=== PATIENT | female | born 1940 | race Caucasian/White ===

== ENCOUNTER 2019-01-21 15:24 | Observation (INO) ==
--- NOTE | 2019-01-21 15:44 | Emergency Department Note ---
ED Disposition Clinical Impression: Unstable angina, HLD (hyperlipidemia), PAD (peripheral artery disease), CAD (coronary artery disease), Chronic kidney disease, stage 2 (mild) Disposition: Admitted as Observation Condition on Discharge: Fair Referrals: Ted Trinidad [Primary Care Provider] - Time of Disposition: 17:13 - Critical Care Critical Care Time: No Attestation: On , the high probability of a clinically significant, sudden or life threatening deterioration of the following system(s) required my full and direct attention, intervention and personal management. The time I documented below is in addition to time spent performing reported procedures but includes the following listed in this critical care notation. Medical Decision Making - Medical Records Medical records reviewed: Yes: I reviewed the patient's medical records. - Randal Inquiry Pt receiving controlled substance: No Randal was queried for this patient: No Vital Signs: 01/21/19 15:28 01/21/19 15:57 01/21/19 16:58 Temperature 97.5 F L Temperature Source Oral Pulse Rate [Apical] 57 L Pulse Rate [Right Radial] 61 55 L Respiratory Rate 20 Blood Pressure [Right Arm] 160/76 H 132/63 128/55 L Blood Pressure Mean [Right Arm] 104 86 79 Blood Pressure Source [Right Arm] Automatic Cuff Automatic Cuff Automatic Cuff Blood Pressure Position [Right Arm] Sitting Sitting Supine 02 Sat by Pulse Oximetry 97 96 96 Oxygen Delivery Method Room Air Room Air Room Air 01/21/19 17:30 Temperature Temperature Source Pulse Rate [Apical] Pulse Rate [Right Radial] 55 L Respiratory Rate Blood Pressure [Right Arm] 136/55 L Blood Pressure Mean [Right Arm] 82 Blood Pressure Source [Right Arm] Automatic Cuff Blood Pressure Position [Right Arm] Supine 02 Sat by Pulse Oximetry 97 Oxygen Delivery Method Room Air - Lab Data Lab results reviewed: Yes: I reviewed the patient's lab results. Lab Results 01/21/19 15:45: WBC 5.6, RBC 4.22, Hgb 13.0, Hct 41.2, MCV 97.5, MCH 30.8, MCHC 31.6 L, RDW 13.5, Plt Count 286, MPV 7.9, Neut % (Auto) 54.0, Lymph % (Auto) 36.2, [place] % (Auto) 6.3, Eos % (Auto) 3.0, Baso % (Auto) 0.5, Neut # (Auto) 3.0, Lymph # (Auto) 2.0, [place] # (Auto) 0.4, Eos # (Auto) 0.2, Baso # (Auto) 0.0 01/21/19 15:45: Sodium 132 L, Potassium 4.1, Chloride 97 L, Carbon Dioxide 24, Anion Gap 15.1 H, BUN 19 H, Creatinine 1.17 H, Estimated Creat Clear 61, Estimated GFR 45 L, Est GFR ( Amer) 54 L, Glucose 107 H, Calcium 9.1, Troponin I < 0.02 Result diagrams: 01/21/19 15:45 01/21/19 15:45 Orders (Tests/Meds): ED MEDICATIONS Generic Name Dose Route Start Last Admin Trade Name Freq PRN Reason Stop Dose Admin Nitroglycerin 1 gm 01/21/19 21:00 01/21/19 18:04 Nitroglycerin 1 Inch Oint Udp TD 02/20/19 20:59 1 gm TID NITESH Administration Discontinued Medications Generic Name Dose Route Start Last Admin Trade Name Freq PRN Reason Stop Dose Admin Aspirin 324 mg 01/21/19 15:59 01/21/19 17:11 Aspirin 81mg Chewable Tablet PO 01/21/19 16:00 Not Given ONCE ONE Aspirin 325 mg 01/21/19 16:23 01/21/19 16:24 Aspirin Ec 325mg Tablet PO 01/21/19 16:24 325 mg ONCE ONE Administration - Physician Consults Physician Consulted: jeri Time: 17:13 Reason -: Admission, Pt condition - HUBER Score for Non-Stemi Age of Patient: 70-79 years old Heart Rate: 50-69 bpm Systolic Blood Pressure: 160-199 mmHg Serum Creatinine: 0.80-1.19 mg/dl CHF [place] Class: I-No CHF Other Risk Factors: None Non-Stemi Risk Score: 95 General Adult HPI - General Stated complaint: chest pain Time Seen by Provider: 01/21/19 15:33 Mode of Arrival: Ambulatory Source of Information: Patient Limitations: No Limitations - History of Present Illness HPI narrative: extensive heart disease history, carotid history. CABG 2000 and stents . Patient of Jeri. - Related Data Home Medications Medication Instructions Recorded Confirmed aspirin 81 mg tablet,delayed 81 mg PO QDAY 08/12/17 10/08/18 release clopidogrel 75 mg tablet 75 mg PO DAILY 10/08/18 10/08/18 Previous Rx's Medication Instructions Recorded carvedilol 12.5 mg tablet 12.5 mg PO BID 90 Days #180 tab 01/30/18 diltiazem CD 240 mg 240 mg PO QDAY #90 cap 05/14/18 capsule,extended release 24 hr atorvastatin 10 mg tablet 10 mg PO QDAY #90 tab 05/15/18 losartan 100 mg tablet 100 mg PO QDAY #90 tab 05/15/18 isosorbide mononitrate ER 60 mg 60 mg PO DAILY #90 tab 05/27/18 tablet,extended release 24 hr Allergies Allergy/AdvReac Type Severity Reaction Status Date / Time doxycycline Allergy Verified 10/08/18 11:53 nitrofurantoin Allergy Verified 10/08/18 11:53 [From Macrodantin] Penicillins Allergy Verified 10/08/18 11:53 Xudrgrq-Kgk-Zqq Reductase Allergy Verified 10/08/18 11:53 Inhibitor Sulfa (Sulfonamide Allergy Verified 10/08/18 11:53 Antibiotics) Seafood Allergy Uncoded 10/08/18 11:53 [facility] History - Hepatitis A Screen Attestation statement:: This patient has been screened for Hepatitis A risk factors. I have reviewed the patient's past medical history: Yes Medical History: Reports:: Anxiety, Coronary Artery Disease, Gastroesophageal Reflux Disease(GERD), Hyperlipidemia, Hypertension, Peripheral Artery Disease, Renal Disease Other Surgeries: Yes: Angioplasty, Hysterectomy-Total Comment: CABG x3 2000. Cholecystectomy. KERRY Ramus 02/2018 - Social History Smoking Status: Never smoker Alcohol Intake: never Substance Use Type: denies use Occupational Status: retired - Psychiatric History Pschychiatric History:: Reports:: Anxiety Family Hx:: Heart Attack, Coronary Artery Disease ROS Obtained: Yes All systems reviewed & no additional complaints - Constitutional Constitutional: Denies fever(s) - ENT Ears, Nose, Mouth, and Throat: Reports other (jaw pain) - Cardiovascular Cardiovascular: Reports chest pain, Reports chest pain at rest - Respiratory Respiratory: No chest congestion, No cough, No dyspnea - Gastrointestinal Gastrointestingal: Denies: abdominal pain - Musculoskeletal Musculoskeletal: Denies joint pain, Reports back pain, Denies joint stiffness, Denies joint swelling, Reports other (upper thoracic) - Integumentary/Breasts Skin/Breast: Denies skin pain, Denies wounds - Neurologic Neurologic: Denies syncope - Hematologic/Lymphatic Henatologic/Lymphatic: Denies easy bleeding Physical Exam - General General appearance: alert, in no apparent distress - Head Head exam: atraumatic, normocephalic, normal inspection - Eye Eye exam: Present: normal appearance - ENT ENT exam: Present: normal exam, normal oropharynx, mucous membranes moist, TM's normal bilaterally, normal external ear exam - Neck Neck exam: Present: full ROM, trachea midline. Absent: lymphadenopathy - Chest Chest inspection: Present: normal inspection, symmetric chest wall rise. Absent: tenderness - Respiratory Respiratory exam: Present: normal lung sounds bilaterally. Absent: respiratory distress - Cardiovascular Cardiovascular exam: Present: regular rate, normal rhythm. Absent: JVD - Abdominal Exam Abdominal exam: Present: soft, normal bowel sounds. Absent: distention, tenderness, guarding - Extremities Exam Extremities exam: Present: normal inspection, full ROM, normal capillary refill. Absent: calf tenderness - Back Exam Back exam: Present: full ROM, paraspinal tenderness - Neurological Exam Neurological exam: Present: alert, oriented X3 - Psychiatric Psychiatric exam: Present: normal affect, normal mood - Skin Skin exam: Present: warm, dry, intact, normal color
[2019-01-21 15:54] LABS: Basophils % 0.5 % (0.1-2.0); Eosinophils # 0.2 K/mm3 (0.0-0.4); Hematocrit 41.2 % (37.0-47.0); Lymphocytes % 36.2 % (10-50); Mean Corpuscular HGB Conc 31.6 g/dL (31.8-35.4); Mean Corpuscular Volume 97.5 fl (81-99); Mean Platelet Volume 7.9 fl (7.4-10.4); Monocytes # 0.4 K/mm3 (0.1-1.0); Monocytes % 6.3 % (1.7-9.3); Platelet Count 286 K/mm3 (142-424); Red Blood Count 4.22 M/mm3 (4.20-5.40); Red Cell Distribution Width 13.5 % (11.5-17.5); White Blood Count 5.6 K/mm3 (4.8-10.8)
[2019-01-21 16:10] LABS: Anion Gap 15.1 mEq/L (5-15); Blood Urea Nitrogen 19 mg/dL (7-18); Calcium 9.1 mg/dL (8.5-10.1); Carbon Dioxide 24 mmol/L (21.0-32.0); Chloride 97 mmol/L (98-107); Glucose 107 mg/dL (74-106); Sodium 132 mmol/L (136-145)
--- NOTE | 2019-01-21 23:27 | Progress Note ---
Internal Medicine - PN: Subj *Date: 01/21/19 *Time: 23:24 Interval history: I came by to see the patient. She is sleeping quietly. I did not disturb her. Chart is reviewed. Med list is reviewed. Vital signs are stable. She presented with complaints of nonexertional chest pain. Cardiac catheterization is planned in the morning by Dr. Mehta. She is a regular patient of Dr. Mehta and sees Dr.Timothy Trinidad in [facility]. Exam Vital signs and Labs for Last 24 Hours: Temp Pulse Resp BP Pulse Ox 97.5 F L 58 L 18 159/59 H 98 01/21/19 20:00 01/21/19 20:00 01/21/19 20:00 01/21/19 20:00 01/21/19 20:00 Laboratory Results - last 24 hr 01/21/19 15:45: WBC 5.6, RBC 4.22, Hgb 13.0, Hct 41.2, MCV 97.5, MCH 30.8, MCHC 31.6 L, RDW 13.5, Plt Count 286, MPV 7.9, Neut % (Auto) 54.0, Lymph % (Auto) 36.2, [place] % (Auto) 6.3, Eos % (Auto) 3.0, Baso % (Auto) 0.5, Neut # (Auto) 3.0, Lymph # (Auto) 2.0, [place] # (Auto) 0.4, Eos # (Auto) 0.2, Baso # (Auto) 0.0 01/21/19 15:45: Sodium 132 L, Potassium 4.1, Chloride 97 L, Carbon Dioxide 24, Anion Gap 15.1 H, BUN 19 H, Creatinine 1.17 H, Estimated Creat Clear 61, Estimated GFR 45 L, Est GFR ( Amer) 54 L, Glucose 107 H, Calcium 9.1, Troponin I < 0.02 01/21/19 21:30: Troponin I < 0.02 I & O for Last 24 hours: Intake & Output 01/19/19 01/20/19 01/21/19 01/22/19 11:59 11:59 11:59 11:59 Weight 208 lb 5 oz - Constitutional no acute distress - *Routine Respiratory Exam Absent: respiratory distress - *Routine Cardiovascular Exam Present: RRR Assessment and Plan (1) Unstable angina Current visit: Yes Status: Acute Category: Medical Code(s): I20.0 - Unstable angina (2) CAD (coronary artery disease) Current visit: Yes Status: Chronic Qualifiers: Category: Medical Code(s): I25.10 - Atherosclerotic heart disease of [place] coronary artery without angina pectoris (3) Chronic kidney disease, stage 2 (mild) Current visit: Yes Status: Chronic Category: Medical Code(s): N18.2 - Chronic kidney disease, stage 2 (mild) (4) PAD (peripheral artery disease) Current visit: Yes Status: Chronic Category: Medical Code(s): I73.9 - Peripheral vascular disease, unspecified - Assessment and plan all Dx Assessment and Plan for all problems:: Cardiac cath tomorrow.
--- NOTE | 2019-01-22 07:52 | Consult Report ---
History of Present Illness Consult date: 01/22/19 Requesting physician: Flory Mao Consult reason: chest pain Chief complaint: chest pain Additional Medical History:: 1. Coronary artery disease A. History of coronary bypass grafting, 2000 B. Multiple coronary artery stenting procedures since 2000, per patient approximately every 1-1/2 to 2 years over the last several years. The last one in February 2018 at [facility] with drug-eluting stents placed to the ramus artery. 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 Normal left ventricular ejection fraction with elevated left ventricular end- diastolic pressure noted. 2. Hypertension 3. Hyperlipidemia 4. Gastroesophageal reflux disease 5. Chronic kidney disease, stage II, Cr 1.17 and GFR 45 6. Anxiety 7. Peripheral artery disease 8. Carotid artery stenosis, 2018, bilateral 20 to 49% ICA stenosis, unchanged from 2017 History of present illness: 79-year-old white female with coronary artery disease and history of bypass surgery and multiple stents since then with the last one in February 2018 presented to hospital for admission due to recurrent exertional back and jaw pain over the last week. Symptoms are the same as what she had in February of last year at which time she had stenting to her ramus intermedius artery despite triple antianginal therapy. Patient was admitted with plans for left heart catheterization today. Troponins have returned normal overnight. EKG is sinus with no acute changes. Patient did have nitroglycerin paste applied with no recurrent jaw pain. Her left scapular pain persists. [facility] History Medical History: Reports:: Anxiety, Coronary Artery Disease, Gastroesophageal Reflux Disease(GERD), Hyperlipidemia, Hypertension, Peripheral Artery Disease, Renal Disease Denies:: Diabetes Mellitus Type 1, Diabetes Mellitus Type 2 *Have you ever received a pneumonia vaccine?: Yes *Have you received a flu vaccine this season?: Yes Other Surgeries: Yes: Angioplasty, Hysterectomy-Total, Other (open heart sx 2000) - *Social History Smoking Status: Never smoker Alcohol Intake: never Substance Use Type: denies use *Occupational Status:: retired *Travel in the last 8 weeks: None - Psychiatric History Pschychiatric History:: Reports:: Anxiety Family Hx:: Heart Attack, Coronary Artery Disease Meds Home Medications Medication Instructions Recorded Confirmed Type aspirin 81 mg tablet,delayed 81 mg PO QDAY 08/12/17 01/21/19 History release carvedilol 12.5 mg tablet 12.5 mg PO BID 90 Days #180 tab 01/30/18 01/21/19 Rx diltiazem CD 240 mg 240 mg PO QDAY #90 cap 05/14/18 01/21/19 Rx capsule,extended release 24 hr atorvastatin 10 mg tablet 10 mg PO QDAY #90 tab 05/15/18 01/21/19 Rx losartan 100 mg tablet 100 mg PO QDAY #90 tab 05/15/18 01/21/19 Rx isosorbide mononitrate ER 60 mg 60 mg PO DAILY #90 tab 05/27/18 01/21/19 Rx tablet,extended release 24 hr clopidogrel 75 mg tablet 75 mg PO DAILY 10/08/18 01/21/19 History Allergies Allergy/AdvReac Type Severity Reaction Status Date / Time doxycycline Allergy Verified 10/08/18 11:53 nitrofurantoin Allergy Verified 10/08/18 11:53 [From Macrodantin] Penicillins Allergy Verified 10/08/18 11:53 Kxovaxr-Rab-Bit Reductase Allergy Verified 10/08/18 11:53 Inhibitor Sulfa (Sulfonamide Allergy Verified 10/08/18 11:53 Antibiotics) Seafood Allergy Uncoded 10/08/18 11:53 Review of Systems - *Cardiovascular Reports chest pain - *Respiratory Denies cough, Denies shortness of breath - *Gastrointestinal Denies abdominal pain, Denies nausea, Denies vomiting - *Genitourinary Denies blood in urine - *Musculoskeletal Denies joint pain, Denies back pain - *Neurologic Denies fainting, Denies weakness Exam Vital signs and Labs for Last 24 Hours: Temp Pulse Resp BP Pulse Ox 97.4 F L 65 18 95/47 L 96 01/22/19 04:00 01/22/19 04:00 01/22/19 04:00 01/22/19 04:00 01/22/19 04:00 Laboratory Results - last 24 hr 01/21/19 15:45: WBC 5.6, RBC 4.22, Hgb 13.0, Hct 41.2, MCV 97.5, MCH 30.8, MCHC 31.6 L, RDW 13.5, Plt Count 286, MPV 7.9, Neut % (Auto) 54.0, Lymph % (Auto) 36.2, [place] % (Auto) 6.3, Eos % (Auto) 3.0, Baso % (Auto) 0.5, Neut # (Auto) 3.0, Lymph # (Auto) 2.0, [place] # (Auto) 0.4, Eos # (Auto) 0.2, Baso # (Auto) 0.0 01/21/19 15:45: Sodium 132 L, Potassium 4.1, Chloride 97 L, Carbon Dioxide 24, Anion Gap 15.1 H, BUN 19 H, Creatinine 1.17 H, Estimated Creat Clear 61, Estimated GFR 45 L, Est GFR ( Amer) 54 L, Glucose 107 H, Calcium 9.1, Troponin I < 0.02 01/21/19 21:30: Troponin I < 0.02 01/22/19 00:23: Troponin I < 0.02 I & O for Last 24 hours: Intake & Output 01/19/19 01/20/19 01/21/19 01/22/19 11:59 11:59 11:59 11:59 Intake Total 428 / 428 Balance 428 / 428 Weight 210 lb - *Routine HEENT Exam Head: Present: normocephalic Eye: Present: EOMI, PERRL ENT: Present: mucous membranes moist - *Routine Neck Exam Present: supple. Absent: JVD, carotid bruit - *Routine Respiratory Exam Present: CTA bilaterally. Absent: accessory muscle use, rales, rhonchi, wheezes - *Routine Cardiovascular Exam Present: RRR. Absent: murmur, gallop, rubs - *Routine Abdominal Exam Present: soft. Absent: tenderness, distended, guarding - *Routine Extremities Exam Absent: edema, calf tenderness - *Routine Neurological Exam Present: alert, oriented X3, moving all extremities Assessment and Plan (1) Unstable angina Current visit: Yes Status: Acute Category: Medical Code(s): I20.0 - Unstable angina (2) CAD (coronary artery disease) Current visit: Yes Status: Chronic Qualifiers: Category: Medical Code(s): I25.10 - Atherosclerotic heart disease of [place] coronary artery without angina pectoris (3) Chronic kidney disease, stage 2 (mild) Current visit: Yes Status: Chronic Category: Medical Code(s): N18.2 - Chronic kidney disease, stage 2 (mild) (4) PAD (peripheral artery disease) Current visit: Yes Status: Chronic Category: Medical Code(s): I73.9 - Peripheral vascular disease, unspecified - Assessment and plan all Dx Assessment and Plan for all problems:: 1. Unstable angina pectoris despite 3 antianginal medications. Plan to proceed with left heart catheterization today. Patient has a known chronically occluded CHEN. Home medications have been reviewed continued including aspirin and Plavix. 2. Further recommendations to follow pending above results.
--- NOTE | 2019-01-22 08:41 | History & Physical Report ---
*Admission Date: 01/21/19 *Chief complaint: chest and jaw pain *History of present illness: Ms. Barrera is a 79-year-old white female with coronary artery disease and history of bypass surgery and multiple stents since then with the last one in February 2018, who presented to hospital for admission due to recurrent exertional back and jaw pain over the last week. Symptoms are the same as what she had in February of last year at which time she had stenting to her ramus intermedius artery despite triple antianginal therapy. Patient was admitted with plans for left heart catheterization today. Troponins have returned normal overnight. EKG is sinus with no acute changes. Patient did have nitroglycerin paste applied with no recurrent jaw pain. Her left scapular pain persists. The above as per Viral Escoto. [facility] History I have reviewed the patient's past medical history: Yes Medical History: Reports:: Anxiety, Carotid Stenosis, Coronary Artery Disease, Gastroesophageal Reflux Disease(GERD), Hyperlipidemia, Hypertension, Peripheral Artery Disease, Renal Disease Denies:: Diabetes Mellitus Type 1, Diabetes Mellitus Type 2 *Have you ever received a pneumonia vaccine?: Yes *Have you received a flu vaccine this season?: Yes Other Surgeries: Yes: Angioplasty, CABG, Cardiac Catheterization, Coronary Stent, Hysterectomy-Total, Other (open heart sx 2000) - *Social History Smoking Status: Never smoker Alcohol Intake: never Substance Use Type: denies use *Occupational Status:: retired *Travel in the last 8 weeks: None - Psychiatric History Pschychiatric History:: Reports:: Anxiety Family Hx:: Heart Attack, Coronary Artery Disease Review of Systems - Constitutional Denies fever(s), Denies weakness - Eyes Denies blurry vision, Denies double vision - ENT Reports nasal congestion, Denies sore throat - *Cardiovascular Reports radiating jaw, neck or arm pain, Denies chest pain, Denies shortness of breath, Denies irregular heart rhythm - *Respiratory Reports cough, Denies shortness of breath - *Gastrointestinal Reports nausea, Denies abdominal pain, Denies loose stools, Denies vomiting - *Genitourinary Denies difficulty urinating, Denies painful urination - *Musculoskeletal Denies joint pain - *Neurologic Reports headache(s), Denies fainting, Denies dizziness, Denies weakness Meds Home Medications Medication Instructions Recorded Confirmed Type aspirin 81 mg tablet,delayed 81 mg PO QDAY 08/12/17 01/21/19 History release carvedilol 12.5 mg tablet 12.5 mg PO BID 90 Days #180 tab 01/30/18 01/21/19 Rx diltiazem CD 240 mg 240 mg PO QDAY #90 cap 05/14/18 01/21/19 Rx capsule,extended release 24 hr atorvastatin 10 mg tablet 10 mg PO QDAY #90 tab 05/15/18 01/21/19 Rx losartan 100 mg tablet 100 mg PO QDAY #90 tab 05/15/18 01/21/19 Rx isosorbide mononitrate ER 60 mg 60 mg PO DAILY #90 tab 05/27/18 01/21/19 Rx tablet,extended release 24 hr clopidogrel 75 mg tablet 75 mg PO DAILY 10/08/18 01/21/19 History Allergies Allergy/AdvReac Type Severity Reaction Status Date / Time doxycycline Allergy Verified 10/08/18 11:53 nitrofurantoin Allergy Verified 10/08/18 11:53 [From Macrodantin] Penicillins Allergy Verified 10/08/18 11:53 Cdkzirf-Pwh-Rhs Reductase Allergy Verified 10/08/18 11:53 Inhibitor Sulfa (Sulfonamide Allergy Verified 10/08/18 11:53 Antibiotics) Seafood Allergy Uncoded 10/08/18 11:53 Exam Vital signs and Labs for Last 24 Hours: Temp Pulse Resp BP Pulse Ox 97.9 F 56 L 18 132/80 98 01/22/19 08:00 01/22/19 08:00 01/22/19 08:00 01/22/19 08:00 01/22/19 08:00 Laboratory Results - last 24 hr 01/21/19 15:45: WBC 5.6, RBC 4.22, Hgb 13.0, Hct 41.2, MCV 97.5, MCH 30.8, MCHC 31.6 L, RDW 13.5, Plt Count 286, MPV 7.9, Neut % (Auto) 54.0, Lymph % (Auto) 36.2, [place] % (Auto) 6.3, Eos % (Auto) 3.0, Baso % (Auto) 0.5, Neut # (Auto) 3.0, Lymph # (Auto) 2.0, [place] # (Auto) 0.4, Eos # (Auto) 0.2, Baso # (Auto) 0.0 07/10/19 15:45: Sodium 132 L, Potassium 4.1, Chloride 97 L, Carbon Dioxide 24, Anion Gap 15.1 H, BUN 19 H, Creatinine 1.17 H, Estimated Creat Clear 61, Estimated GFR 45 L, Est GFR ( Amer) 54 L, Glucose 107 H, Calcium 9.1, Troponin I < 0.02 01/21/19 21:30: Troponin I < 0.02 01/22/19 00:23: Troponin I < 0.02 I & O for Last 24 hours: Intake & Output 01/19/19 01/20/19 01/21/19 01/22/19 11:59 11:59 11:59 11:59 Intake Total 428 / 428 Balance 428 / 428 Weight 210 lb - Constitutional no acute distress - *Routine HEENT Exam Head: Present: normocephalic Eye: Present: EOMI, PERRL ENT: Present: mucous membranes moist - *Routine Neck Exam Present: supple. Absent: lymphadenopathy - *Routine Respiratory Exam Present: CTA bilaterally - *Routine Cardiovascular Exam Present: RRR - *Routine Abdominal Exam Present: soft, normoactive bowel sounds. Absent: tenderness - *Routine Extremities Exam Absent: cyanosis, clubbing, edema - *Routine Skin Exam Present: warm. Absent: rash - *Routine Neurological Exam Present: alert, oriented X3 H&P: Result - Impressions CXR - nothing acute Assessment and Plan (1) Unstable angina Current visit: Yes Status: Acute Category: Medical Code(s): I20.0 - Unstable angina (2) CAD (coronary artery disease) Current visit: Yes Status: Chronic Qualifiers: Category: Medical Code(s): I25.10 - Atherosclerotic heart disease of [place] coronary artery without angina pectoris (3) Chronic kidney disease, stage 2 (mild) Current visit: Yes Status: Chronic Category: Medical Code(s): N18.2 - Chronic kidney disease, stage 2 (mild) (4) PAD (peripheral artery disease) Current visit: Yes Status: Chronic Category: Medical Code(s): I73.9 - Peripheral vascular disease, unspecified - Assessment and plan all Dx Assessment and Plan for all problems:: Patient to have a heart cath this am.
--- NOTE | 2019-01-22 08:45 | Pharmacy Consult Notes ---
[facility] Pharmacy VTE Monitoring - Patient Demographics Admission date: 01/22/19 Report Date: 01/22/19 Time: 08:45 Allergies/Adverse Reactions: Patient Allergies doxycycline Allergy (Verified 10/08/18 11:53) nitrofurantoin [From Macrodantin] Allergy (Verified 10/08/18 11:53) Penicillins Allergy (Verified 10/08/18 11:53) Afhngfk-Pcc-Dee Reductase Inhibitor Allergy (Verified 10/08/18 11:53) Sulfa (Sulfonamide Antibiotics) Allergy (Verified 10/08/18 11:53) Seafood Allergy (Uncoded 10/08/18 11:53) Height: 1.63 m Weight: 95.254 kg Patient Problems: Current Active Problems (Updated 01/21/19 @ 17:13 by Jayden Grace MD) Unstable angina (Acute) PAD (peripheral artery disease) (Chronic) HLD (hyperlipidemia) (Chronic) CAD (coronary artery disease) (Chronic) Chronic kidney disease, stage 2 (mild) (Chronic) - VTE Risk Labs: VTE Related Lab Results Hgb 13.0 g/dL (12.2-16.2) 01/21/19 15:45 Hct 41.2 % (37.0-47.0) 01/21/19 15:45 Plt Count 286 K/mm3 (142-424) 01/21/19 15:45 BUN 19 mg/dL (7-18) H 01/21/19 15:45 Creatinine 1.17 mg/dL (0.55-1.02) H 01/21/19 15:45 Estimated Creat Clear 61 mL/min (50-200) 01/21/19 15:45 Was VTE Risk Assessment Performed: Yes VTE Score: 1 VTE Risk Level: Moderate Risk Clinical Trial Participant: No - Prophylaxis VTE Prophylaxis Ordered?: Yes Types of VTE Prophylaxis: TEDS Knee High
--- NOTE | 2019-01-23 13:05 | Discharge Summary ---
General - General Admission date:: 01/21/19 Discharge date: 01/22/19 HPI HPI: Ms. Barrera is a 79-year-old white female with coronary artery disease and history of bypass surgery and multiple stents since then with the last one in February 2018, who presented to hospital for admission due to recurrent exertional back and jaw pain over the last week. Symptoms are the same as what she had in February of last year at which time she had stenting to her ramus intermedius artery despite triple antianginal therapy. Patient was admitted with plans for left heart catheterization today. Troponins have returned normal overnight. EKG is sinus with no acute changes. Patient did have nitroglycerin paste applied with no recurrent jaw pain. Her left scapular pain persists. The above as per Viral Escoto. Hospital Course Hospital Course: The patient was taken to the Embryology Professor and there was severe disease in the circumflex artery. She received 1 stent. Cardiology felt she was stable to be discharged home on dual antiplatelet therapy and cardiac rehabilitation. They did not want to make any changes to her home medication regimen and will follow up with her in a week in their office. Objective Vital signs: Temp Pulse Resp BP Pulse Ox 97.7 F 61 15 150/62 H 95 01/22/19 13:30 01/22/19 16:15 01/22/19 16:15 01/22/19 16:15 01/22/19 16:15 Narrative: - Constitutional no acute distress - *Routine HEENT Exam Head: Present: normocephalic Eye: Present: EOMI, PERRL ENT: Present: mucous membranes moist - *Routine Neck Exam Present: supple. Absent: lymphadenopathy - *Routine Respiratory Exam Present: CTA bilaterally - *Routine Cardiovascular Exam Present: RRR - *Routine Abdominal Exam Present: soft, normoactive bowel sounds. Absent: tenderness - *Routine Extremities Exam Absent: cyanosis, clubbing, edema - *Routine Skin Exam Present: warm. Absent: rash - *Routine Neurological Exam Present: alert, oriented X3 Results Labs on day of discharge: Labs from last 24 hours 01/22/19 12:45 Activated Clotting Time 319 H* DS: Diagnosis - Discharge Diagnosis (1) Unstable angina Status: Acute (2) CAD (coronary artery disease) Status: Chronic (3) Chronic kidney disease, stage 2 (mild) Status: Chronic (4) PAD (peripheral artery disease) Status: Chronic (5) Status post coronary artery stent placement Status: Acute Discharge Plan - Patient Discharge Instructions ACTIVITY: Limited activity DIET: cardiac Patient Instructions: Cardiac Catheterization, DI for Angina, DI for Cardiac Catheterization, DI for Coronary Stenting, DI for Surgical Site Infection, Surgical Site Infection - Follow up Plan Follow up with: Santi Mehta MD [Staff Physician] - 1 week Disposition: Home, Self-Halfway Medications: Home Medications Medication Instructions Recorded Confirmed Type aspirin 81 mg tablet,delayed 81 mg PO QDAY 08/12/17 01/21/19 History release carvedilol 12.5 mg tablet 12.5 mg PO BID 90 Days #180 tab 01/30/18 01/21/19 Rx diltiazem CD 240 mg 240 mg PO QDAY #90 cap 05/14/18 01/21/19 Rx capsule,extended release 24 hr atorvastatin 10 mg tablet 10 mg PO QDAY #90 tab 05/15/18 01/21/19 Rx losartan 100 mg tablet 100 mg PO QDAY #90 tab 05/15/18 01/21/19 Rx isosorbide mononitrate ER 60 mg 60 mg PO DAILY #90 tab 05/27/18 01/21/19 Rx tablet,extended release 24 hr clopidogrel 75 mg tablet 75 mg PO DAILY 10/08/18 01/21/19 History Prescriptions/Medication Reconciliation: Continued diltiazem CD 240 mg capsule,extended release 24 hr 240 mg PO QDAY #90 cap aspirin 81 mg tablet,delayed release 81 mg PO QDAY carvedilol 12.5 mg tablet 12.5 mg PO BID 90 Days #180 tab atorvastatin 10 mg tablet 10 mg PO QDAY #90 tab losartan 100 mg tablet 100 mg PO QDAY #90 tab isosorbide mononitrate ER 60 mg tablet,extended release 24 hr 60 mg PO DAILY #90 tab clopidogrel 75 mg tablet 75 mg PO DAILY
== END 2019-01-22 17:00 | disposition home or self-care (01) ==
LOC: 2ND 15:24 → ER 15:24 → 2ND 18:44
PROVIDERS: ADMIT Family Medicine; ATTEND Family Medicine
DX: Z88.0 Allergy status to penicillin; Z79.82 Long term (current) use of aspirin; N18.2 Chronic kidney disease, stage 2 (mild); Z79.899 Other long term (current) drug therapy; Z95.5 Presence of coronary angioplasty implant and graft; I73.9 Peripheral vascular disease, unspecified; E78.5 Hyperlipidemia, unspecified; Z88.2 Allergy status to sulfonamides; Z88.8 Allergy status to other drugs, medicaments and biological substances; I25.110 Atherosclerotic heart disease of native coronary artery with unstable angina pectoris; I12.9 Hypertensive chronic kidney disease with stage 1 through stage 4 chronic kidney disease, or unspecified chronic kidney disease; Z95.1 Presence of aortocoronary bypass graft; Z91.013 Allergy to seafood; Z88.1 Allergy status to other antibiotic agents
CPT/HCPCS: 36415; 71020; 71046; 80048; 84484; 85025; 85347; 92943; 93005; 93458; 99152; 99284; C1725; C1760; C1769; C1876; C1894; C9607; G0378; J1644; J2405; Q9967

== ENCOUNTER → 2019-12-09 11:13 | Outpatient (CLI) | payer MEDICARE, OTHER, SELFPAY ==
[2019-12-09 18:05] LABS: Amphetamine/Metha Screen,Urine Negative ng/ml (<1000)
[2019-12-09 18:06] LABS: Barbiturates Screen,Urine Negative ng/ml (<200)
[2019-12-09 18:07] LABS: Cannabinoid Screen,Urine Negative ng/ml (<50)
[2019-12-09 18:08] LABS: Cocaine Screen,Urine Negative ng/ml (<300)
[2019-12-09 18:09] LABS: Methadone Screen,Urine Negative ng/ml (<300)
[2019-12-09 18:11] LABS: Opiate Screen,Urine Negative ng/ml (<300); Phencyclidine Screen,Urine Negative ng/ml (<25)
[2019-12-09 18:25] LABS: Benzodiazepines Screen,Urine Positive ng/ml (<200)
== END ==
PROVIDERS: Visit Provider Internal Medicine
DX: E78.5 Hyperlipidemia, unspecified (principal); F41.9 Anxiety disorder, unspecified; I11.9 Hypertensive heart disease without heart failure; I25.10 Atherosclerotic heart disease of native coronary artery without angina pectoris; Z79.899 Other long term (current) drug therapy; Z95.5 Presence of coronary angioplasty implant and graft
CPT/HCPCS: 80305

== ENCOUNTER → 2020-06-29 08:44 | Outpatient (CLI) | payer MEDICARE, OTHER, SELFPAY ==
--- NOTE | 2020-06-29 08:46 | CA_ITS ---
APPROVED REPORT Thaw Shed Heater Tender: Estrella Leonardo RVT Laterality: Bilateral Study Quality: Good Indications: bob Risk Factors Hypertension: Hyperlipidemia Doppler Spectral Velocity Analysis ECA (R) 162.10/39.00 cm/s ECA (L) 154.60/9.70 cm/s dICA (R) 133.20/20.50 cm/s dICA (L) 64.30/21.00 cm/s Karri (R) 165.70/30.70 cm/s Karri (L) 87.00/27.00 cm/s pICA (R) 136.60/27.00 cm/s pICA (L) 150.40/25.10 cm/s dCCA (R) 42.80/13.90 cm/s dCCA (L) 83.30/12.80 cm/s pCCA (R) 48.90/12.30 cm/s pCCA (L) 101.70/19.50 cm/s Vert (R) 65.50/16.70 cm/s Vert (L) 30.80/4.30 cm/s ICA/CCA 3.87 ICA/CCA 1.81 Findings Study suggests 50-69% stenosis of the right internal cartoid artery worsened from the 01/08/17 study. Study suggests 20-49% stenosis of the left internal cartoid artery unchanged from the 01/08/17 study. Antegrade flow seen bilateral vertebral arteries. Conclusion Study suggests 50-69% stenosis, upper end of scale, of the right internal cartoid artery worsened from the 01/08/17 study. Study suggests 20-49% stenosis of the left internal cartoid artery unchanged from the 01/08/17 study. Antegrade flow seen bilateral vertebral arteries. Electronically signed by : Eric Valadez MD 06/29/2020 16:20:01
== END ==
PROVIDERS: PCP Nurse Practitioner Family; Visit Provider Internal Medicine
DX: E78.5 Hyperlipidemia, unspecified (principal); I11.9 Hypertensive heart disease without heart failure; I25.10 Atherosclerotic heart disease of native coronary artery without angina pectoris; I65.23 Occlusion and stenosis of bilateral carotid arteries; Z95.5 Presence of coronary angioplasty implant and graft
CPT/HCPCS: 93880

== ENCOUNTER 2020-08-11 14:55 | Observation (INO) | payer MEDICARE, SELFPAY ==
[2020-08-11] VITALS (11 sets, daily range): BP systolic 128–192; BP diastolic 61–95; PULSE 55–74; RESP 16–18; TEMP 36.4–36.6; O2SAT 97–98; BMI 36.3; BMI 36.2
--- NOTE | 2020-08-11 14:56 | ECG_ITS ---
APPROVED REPORT Exam: Resting ECG HR:69 bpm ECG Measurements Heart Rate 69 AXES GA 176 P 29 QRSd 92 QRS 65 QT 420 T 63 QTc 450 Conclusion Normal sinus rhythm Normal ECG Electronically signed by : King Lange, 08/12/2020 18:47:43
--- NOTE | 2020-08-11 14:58 | XR_ITS ---
PROCEDURE: XR CHEST PORTABLE CLINICAL HISTORY: CHEST PAIN COMPARISON: CR Chest from 01/21/2019 FINDINGS: Prior CABG. Normal heart size. The lungs are clear without infiltrates, suspicious nodules, or pleural effusions. There are degenerative changes in the right shoulder. Suspect old right humeral neck fracture. IMPRESSION: No acute findings. Dictated by: Eric Valadez MD 08/11/2020 16:14 rEic Valadez MD in [place] 08/11/2020 16:14
[2020-08-11 15:09] LABS: Basophils % 0.6 % (0.1-2.0); Eosinophils # 0.2 K/mm3 (0.0-0.4); Eosinophils % 3.4 % (0.1-12.0); Hematocrit 42.4 % (37.0-47.0); Hemoglobin 14.3 g/dL (12.2-16.2); Lymphocytes # 2.5 K/mm3 (0.7-4.5); Lymphocytes % 40.2 % (10-50); Mean Corpuscular HGB Conc 33.6 g/dL (31.8-35.4); Mean Corpuscular Volume 95.1 fl (81-99); Mean Platelet Volume 7.2 fl (7.4-10.4); Monocytes # 0.3 K/mm3 (0.1-1.0); Monocytes % 5.2 % (1.7-9.3); Neutrophils # 3.1 K/mm3 (1.8-7.8); Neutrophils % 50.4 % (37.0-80.0); Platelet Count 283 K/mm3 (142-424); Red Blood Count 4.46 M/mm3 (4.20-5.40); Red Cell Distribution Width 13.6 % (11.5-17.5); White Blood Count 6.2 K/mm3 (4.8-10.8)
--- NOTE | 2020-08-11 15:10 | HMH.EDGENADL ---
ED Disposition Clinical Impression: Unstable angina Disposition: Admitted as Observation Condition on Discharge: Fair Referrals: Celena Villar APRN [Primary Care Provider] - - Critical Care Critical Care Time: No Attestation: On , the high probability of a clinically significant, sudden or life threatening deterioration of the following system(s) required my full and direct attention, intervention and personal management. The time I documented below is in addition to time spent performing reported procedures but includes the following listed in this critical care notation. Medical Decision Making - Randal Inquiry Pt receiving controlled substance: No Vital Signs: 08/11/20 15:28 08/11/20 15:35 Pulse Rate [Radial] 74 74 Blood Pressure [Right Arm] 128/73 131/65 Blood Pressure Mean [Right Arm] 91 87 Blood Pressure Position [Right Arm] Sitting Sitting 02 Sat by Pulse Oximetry 98 - Lab Data Lab results reviewed: Yes: I reviewed the patient's lab results. Lab Results 08/11/20 15:00: WBC 6.2, RBC 4.46, Hgb 14.3, Hct 42.4, MCV 95.1, MCH 32.0 H, MCHC 33.6, RDW 13.6, Plt Count 283, MPV 7.2 L, Neut % (Auto) 50.4, Lymph % (Auto) 40.2, [place] % (Auto) 5.2, Eos % (Auto) 3.4, Baso % (Auto) 0.6, Neut # (Auto) 3.1, Lymph # (Auto) 2.5, [place] # (Auto) 0.3, Eos # (Auto) 0.2, Baso # (Auto) 0.0 08/11/20 15:00: Sodium 136, Potassium 4.3, Chloride 102, Carbon Dioxide 25, Anion Gap 13.3, BUN 13, Creatinine 1.00, Estimated Creat Clear 70, Estimated GFR 54 L, Est GFR ( Amer) 65, Glucose 112 H, Calcium 9.7, Total Bilirubin 0.5, Direct Bilirubin 0.3, Conjugated Bilirubin 0.0, Indirect Bilirubin 0.2, Unconjugated Bilirubin 0.2, AST 27, ALT 18, Alkaline Phosphatase 59, Troponin I < 0.01, Total Protein 7.9, Albumin 4.9 Result diagrams: 08/11/20 15:00 08/11/20 15:00 Orders (Tests/Meds): ED MEDICATIONS Discontinued Medications Generic Name Dose Route Start Last Admin Trade Name Madiha PRN Reason Stop Dose Admin Aspirin 324 mg 08/11/20 15:32 08/11/20 15:28 Aspirin 81mg Chewable Tablet PO 08/11/20 15:33 324 mg ONCE ONE Administration Nitroglycerin 0.4 mg 08/11/20 15:32 08/11/20 15:30 Nitroglycerin 0.4mg Sl Tablet SL 08/11/20 15:33 0.4 mg ONCE ONE Administration ORDERS Category Date Time Status Covid-19 IgG/IgM ([facility]) Stat Lab 08/11/20 15:00 Received Troponin I Q3H Lab 08/11/20 18:00 Ordered Troponin I Q3H Lab 08/11/20 21:00 Ordered - Radiology Data #1 Image(s): Chest Image Reviewed: Yes I have reviewed radiologist's interpretation PROCEDURE: XR CHEST PORTABLE CLINICAL HISTORY: CHEST PAIN COMPARISON: CR Chest from 01/21/2019 FINDINGS: Prior CABG. Normal heart size. The lungs are clear without infiltrates, suspicious nodules, or pleural effusions. There are degenerative changes in the right shoulder. Suspect old right humeral neck fracture. IMPRESSION: No acute findings. Dictated by: Eric Valadez MD 08/11/2020 16:14 Eric Valadez MD in [place] 08/11/2020 16:14 - ECG Data Tracing #1 EKG interpreted by Garfield Garces MD: Rhythm: sinus Rate: 69 [place]: normal Ectopy: none Conduction: normal ST Segment Changes: none T Wave Changes: none Q Waves: none No evidence of acute ischemia or injury Normal electrocardiogram - Physician Consults Physician Consulted: Janine Time: 17:00 Reason -: Cardiology Eval/Care Comment/Response: Admit for cardiac cath tomorrow Additional Consult: Dr. Ceballos Time: 17:00 Reason -: Admission Comment/Response: Agrees to admit the patient to the hospital. We discussed the patient's clinical information, including history, exam, laboratory and radiology results and ED course. Per hospital procedure, I will write temporary bridge inpatient orders on the patient. Specific orders requested by the admitting physician: Per cardiology - HUBER Score for Non-Stemi Age of Patient: 70-79 years old Heart Rate: 70-89
[2020-08-11 15:20] LABS: Chloride 102 mmol/L (98-107)
[2020-08-11 15:21] LABS: Potassium 4.3 mmoL/L (3.5-5.1); Sodium 136 mmol/L (136-145)
[2020-08-11 15:23] LABS: Alanine Aminotransferase 18 U/L (12-78); Alkaline Phosphatase 59 U/L (38-126); Anion Gap 13.3 mEq/L (5-15); Aspartate Amino Transferase 27 U/L (14-36); Bilirubin,Direct 0.3 mg/dl (0.0-0.4); Bilirubin,Indirect 0.2 mg/dL (0.0-0.9); Bilirubin,Total 0.5 mg/dl (0.2-1.3); Bilirubin,Unconjugated 0.2 mg/dL (0.0-1.1); Blood Urea Nitrogen 13 mg/dl (7-17); Carbon Dioxide 25 mmol/L (22.0-30.0); Creatinine Clearance Estimated 70 mL/min (50-200); Estimated Glomerular Filt Rate 54 ml/min (>60); GFR (African American) 65 ML/MIN (>60)
[2020-08-11 15:24] LABS: Albumin Level 4.9 g/dl (3.5-5.0); Calcium 9.7 mg/dl (8.4-10.2); Glucose 112 mg/dl (74-100); Total Protein,Serum 7.9 g/dl (6.3-8.2)
[2020-08-11 15:36] LABS: Troponin I < 0.01 ng/ml (0.00-0.034)
--- NOTE | 2020-08-11 16:00 | PC.NURSE ---
PT UPDATED ON PLAN OF CARE
--- NOTE | 2020-08-11 17:10 | PC.NURSE ---
PT UPDATED ON PLAN OF CARE
[2020-08-11 17:19] LABS: Coronavirus 19 IgG Antibody Positive (Negative); Coronavirus 19 IgM Antibody Negative (Negative)
--- NOTE | 2020-08-11 17:48 | PC.NURSE ---
CALLED FLOOR TO GIVE REPORT
--- NOTE | 2020-08-11 18:31 | PC.NURSE ---
REPORT CALLED TO OLIVER GOODMAN RN
--- NOTE | 2020-08-11 18:45 | PC.NURSE ---
PT TRANSFERRED TO FLOOR PER WHEELCHAIR
--- NOTE | 2020-08-11 18:57 | PC.NURSE ---
Pt arrived to the floor at this time.
[2020-08-11 19:05] LABS: Troponin I < 0.01 ng/ml (0.00-0.034)
--- NOTE | 2020-08-11 21:08 | [facility].HP ---
*Admission Date: 08/11/20 *Chief complaint: chest pain *History of present illness: Complains of chest pain. States that she has been having chest pains off and on for 2 weeks. Pain starts around her left shoulder blade and goes around to the front of her chest, radiates to the jaw. No exacerbating factors. Alleviated by nitroglycerin. Associated with shortness of breath, but not diaphoresis or nausea. She says the pain was worse today, off and on all day and severe this evening. She called Dr. Mehta who advised her to come to the emergency department. Currently she is pain-free after receiving aspirin prior to my evaluation. She has a long cardiac history. Cardiac bypass surgery 20 years ago. She has had multiple stents since then. She says her last stent and heart cath was a year and a half ago. She says the pain that she has been experiencing for the past 2 weeks is her typical cardiac ischemic pain. She is well known to Dr Mehta. CABG 2001 Dr Solis at [facility]. Numerous stents deployed subsequently. Received asa/ntg/ntp w/relief. No chest pain at the present. Troponins were negative. [facility] History Medical History: Reports:: Anxiety, Carotid Stenosis, Coronary Artery Disease, Gastroesophageal Reflux Disease(GERD), Hyperlipidemia, Hypertension, Peripheral Artery Disease, Renal Disease Denies:: Cancer, Diabetes Mellitus Type 1, Diabetes Mellitus Type 2, MRSA *Have you ever received a pneumonia vaccine?: Yes *Have you received a flu vaccine this season?: Yes Other Medical History: Reports: Arthritis Other Surgeries: Yes: Angioplasty, Appendectomy, CABG, Cardiac Catheterization, Cholecystectomy, Colonoscopy, Coronary Stent, EGD, Hysterectomy-Total, Other Amputation: No Fractures: No - *Social History Last grade of school completed: High school graduate Smoking Status: Never smoker Alcohol Intake: never Substance Use Type: denies use *Occupational Status:: employed Housing: house *Travel in the last 8 weeks: None - Psychiatric History Pschychiatric History:: Reports:: Anxiety Family Hx:: Heart Attack, Hyperlipidemia, Hypertension Review of Systems - Constitutional Reports fatigue - Eyes Denies change in vision - ENT Denies change in voice - *Cardiovascular Reports chest pain, Reports chest pain at rest, Reports shortness of breath with activity - *Respiratory Denies chest congestion - *Gastrointestinal Denies abdominal pain - *Genitourinary Denies difficulty urinating - *Musculoskeletal Denies abnormal walking - Integumentary/Breasts Denies yellowing of the skin, Denies new lesions - *Neurologic Denies other visual disturbances - Psychiatric Denies behavioral changes - Endocrine Denies cold intolerance - Hematologic/Lymphatic Denies easy bleeding - Allergic/Immunologic Denies hives Meds Home Medications Medication Instructions Recorded Confirmed Type aspirin 81 mg tablet,delayed 81 mg PO QDAY 08/12/17 08/11/20 History release chlordiazepoxide HCl 5 mg capsule 5 mg PO Q8H PRN #90 cap 01/30/19 08/11/20 Rx clopidogrel 75 mg tablet 75 mg PO DAILY #90 tab 12/09/19 08/11/20 Rx Doxazosin Mesylate [Cardura 2mg 2 mg PO BID 08/11/20 08/11/20 History Tab] Isosorbide Mononitrate [Imdur 60mg 60 mg PO DAILY 08/11/20 08/11/20 History ER tablet] carvediloL [Carvedilol 12.5mg Tab] 12.5 mg PO BID 08/11/20 08/11/20 History dilTIAZem HCl [Diltiazem 240mg 240 mg PO QDAY 08/11/20 08/11/20 History 24Hr ER Cap] Allergies Allergy/AdvReac Type Severity Reaction Status Date / Time doxycycline Allergy Verified 06/29/20 11:15 nitrofurantoin Allergy Verified 06/29/20 11:15 [From Macrodantin] Penicillins Allergy Verified 06/29/20 11:15 Eqgiplo-Jwd-Czy Reductase Allergy Verified 06/29/20 11:15 Inhibitor Sulfa (Sulfonamide Allergy Verified 06/29/20 11:15 Antibiotics) Seafood Allergy Uncoded 06/29/20 11:15 Exam Vital signs and Labs for Last 24 Hours:
[2020-08-11 21:43] LABS: Troponin I < 0.01 ng/ml (0.00-0.034)
[2020-08-12] VITALS (23 sets, daily range): BP systolic 95–166; BP diastolic 55–90; PULSE 50–95; RESP 16–18; TEMP 36.3–36.9; O2SAT 94–99; BMI 35.6
--- NOTE | 2020-08-12 | IR_ITS ---
APPROVED REPORT Patient Location: Inpatient Shirt Maker: KEZIA Lopez RT (R) PROCEDURES Left heart catheterization Left ventriculogram Selective coronary angiogram Drug-eluting stent deployment to the proximal LAD Drug-eluting stent deployment to the proximal circumflex artery Drug-eluting stent deployment to the left main artery INDICATION Coronary disease, Unstable angina, History of coronary bypass surgery with historical loss of bypass conduits Informed consent was obtained prior to the procedure. COMPLICATIONS none Estimated Blood Loss: less than 10 mls TECHNIQUE One percent lidocaine used to anesthetize the right anterior aspect of the wrist. The right radial artery was accessed via the Seldinger technique. A 6 Albanian sheath was placed in the right radial artery. 2.5 mg of verapamil, 800 mcg of nitroglycerin, 1mg Lidocaine and 5000 U Heparin were given through the arterial sheath. The trap catheter was also used to perform left heart catheterization, left ventriculogram and selective coronary angiogram. At the end the diagnostic angiogram a long hydrophilic sheath was advanced into the radial artery ending in the distal brachial artery. A JL 3 6 Albanian guide catheter was placed in the left main artery. Wires were placed in both the LAD and circumflex artery. Primary stenting could not be performed therefore a 2.5 mm balloon was used to predilate the ostial LAD. Following this a 3 mm x 18 mm resolute Bhaskar stent was deployed at 24 ion reducing the severe stenosis to 0%. A wire was then placed into the circumflex artery and predilatation was made. Following this a 3 mm x 15 mm resolute [place] stent was then deployed in the left main artery extending into the circumflex artery deployed at 24 ion. A wire was placed back into the LAD where a 3.5 mm balloon was then deployed at 24 ion to post dilate the LAD. After achieving excellent angiographic results the apparatus was removed the sheath was removed good hemostasis was achieved using TR banding patient transferred to the postop holding area in stable condition. ANGIOGRAPHIC RESULTS The left main artery Normal The left anterior descending artery Has an ostial eccentric 70% stenosis followed by proximal stents which are widely patent. The mid LAD then has stents which are 40 to 50% stenosis with smooth concentric in-stent restenosis. Large first diagonal artery has a stent which branches off the proximal left anterior descending artery which is also widely patent with minimal in-stent restenosis The circumflex artery Is a nondominant vessel and has an ostial 70% stenosis following stenting of the LAD. The stent in the proximal to mid segment has 40 to 50% concentric in-stent restenosis. The right coronary artery Dominant ostially occluded and fills via [id number] collaterals The KLEIN ventriculogram reveals Normal 60% The left ventricular end-diastolic pressure 10 mmHg IMPRESSION Severe disease as described above Successful stenting of the left main artery with successful stenting of both the LAD and circumflex artery as described above Normal ejection fraction Normal left ventricular end-diastolic pressure PLAN 1. Dual antiplatelet therapy 2. LDL less than 55 3. Cardiac rehabilitation 4. Avoidance of tobacco products 5. Risk factor modification Electronically signed by : Santi Mehta, 08/15/2020 16:25:50
--- NOTE | 2020-08-12 03:25 | PC.NURSE ---
PT HAS DONE WELL SINCE ARRIVAL TO FLOOR. NO C/O CHEST PAIN. PT HAS BEEN NSR ON TELE. VSS. WILL CONT. TO MONITOR.
--- NOTE | 2020-08-12 07:48 | CA_ITS ---
APPROVED REPORT EXAM: Comprehensive 2D, Doppler, and color-flow Echocardiogram Ski Edge Painter: Estrella Leonardo RVT Ht: 5 ft 4 in Wt: 208lbs BSA: 1.99 BP: 192/95 mmHg Indications: ANGINA,CAD,STENT,SOA,CP,CABG TDS 2D Dimensions LVOT 1.57 cm (M/F) 1.5-2.5 M-Mode Dimensions RVDd 1.50 cm (0.9-2.6) LA Diam 3.76 cm (1.9-4.0) LVDd 5.33 cm (3.5-5.7) Ao Diam 2.63 cm (2.0-3.7) LVDs 3.43 cm (3.5-5.7) IVSd 0.32 cm (0.6-1.1) PWd 0.75 cm (0.6-1.1) EF (Teich) 64.60% FS 35.60% EDV (Teich) 137.10 mL ESV (Teich) 48.50 mL LV Diastology E Decel Time 227.00 (160-240 msec) E/A Ratio 0.6 MED E' 6.80 (< 7 cm/sec) E'/MED E' Ratio 10.28 (>14) LAT E' 6.70 (<10 cm/sec) E/LAT E' Ratio 10.43 (>14) Mitral Valve MV E Max Atul. 70.00 (40-130 cm/s) MV A Velocity 117.00 (40-130 cm/s) E/A Ratio 0.60 MV Decel. Time 227.00 (160-240 ms) MV PHT 66.00 ms Pulmonary Valve PV Peak Velocity 107.00 (50-150 cm/s) Tricuspid Valve TR P. Velocity 239.00 cm/s RAP Estimate 10.00 mmHg RVSP 32.90 mmHg Left Ventricle Left atrium is mildly enlarged, left ventricle is normal size, mild concentric left ventricular hypertrophy, visually estimated ejection fraction 55% with no regional wall motion abnormality, grade 1 diastolic dysfunction seen without tissue Doppler evidence of raise left atrial pressure. Right Ventricle Right atrium and right ventricle are normal size and contractility. Aortic Valve Aortic valve is minimally thickened and fibrosed, there is no aortic stenosis or aortic insufficiency. Mitral Valve Mitral valve is grossly normal, there is mild mitral regurgitation. Tricuspid Valve Tricuspid valve grossly normal, there is mild tricuspid regurgitation, tricuspid regurgitation jet velocity is inadequate for calculation of the right ventricular systolic pressure. Pulmonic Valve Pulmonic valve is poorly visualized. Great Vessels Aortic root is normal size. Pericardium No significant pericardial effusion noted. Conclusion 1. Mildly enlarged left atrium, normal left ventricular size, mild concentric left ventricular hypertrophy, visually estimated ejection fraction 55% with no regional wall motion abnormality. Grade 1 diastolic dysfunction seen without tissue Doppler evidence of raise left atrial pressure. 2. Mild mitral and tricuspid regurgitation. 3. No significant pericardial effusion noted. Electronically signed by : Holden Yarbrough, 08/12/2020 16:12:44
--- NOTE | 2020-08-12 09:17 | P.CONPHA_ITS ---
[facility] Pharmacy VTE Monitoring - Patient Demographics Admission date: 08/12/20 Report Date: 08/12/20 Time: 09:17 Allergies/Adverse Reactions: Patient Allergies doxycycline Allergy (Verified 06/29/20 11:15) nitrofurantoin [From Macrodantin] Allergy (Verified 06/29/20 11:15) Penicillins Allergy (Verified 06/29/20 11:15) Twebtxh-Fkg-Pxa Reductase Inhibitor Allergy (Verified 06/29/20 11:15) Sulfa (Sulfonamide Antibiotics) Allergy (Verified 06/29/20 11:15) Seafood Allergy (Uncoded 06/29/20 11:15) Height: 1.63 m Weight: 94.517 kg Patient Problems: Current Active Problems Unstable angina (Acute) Status post coronary artery stent placement (Chronic) HLD (hyperlipidemia) (Chronic) CAD (coronary artery disease) (Chronic) - VTE Risk Labs: VTE Related Lab Results Hgb 14.3 g/dL (12.2-16.2) 08/11/20 15:00 Hct 42.4 % (37.0-47.0) 08/11/20 15:00 Plt Count 283 K/mm3 (142-424) 08/11/20 15:00 BUN 13 mg/dl (7-17) 08/11/20 15:00 Creatinine 1.00 mg/dl (0.52-1.04) 08/11/20 15:00 Estimated Creat Clear 70 mL/min (50-200) 08/11/20 15:00 Was VTE Risk Assessment Performed: Yes VTE Score: 1 VTE Risk Level: Low Risk Clinical Trial Participant: No - Prophylaxis VTE Prophylaxis Ordered?: Yes Types of VTE Prophylaxis: TEDS Knee High
--- NOTE | 2020-08-12 09:19 | HMH.PHAINT ---
completed home medication list using list from home pharmacy
--- NOTE | 2020-08-12 09:41 | HMH.CNCARD ---
History of Present Illness Consult date: 08/12/20 Requesting physician: Rajesh Ceballos Consult reason: chest pain Chief complaint: chest pain Additional Medical History:: 1. Unstable Angina (08/12/20) a. Troponins negative. b. Chest pain started 3 weeks ago and become increasingly worse. 2. Dyspnea (08/12/20) 3. Coronary artery disease a. KERRY (2019) b. Patient is on Plavix and aspirin. 4. Hypertensive heart disease. 5. Carotid artery stenosis History of present illness: 80-year-old female admitted to [facility] with unstable angina. Patient stated for the past 3 to 4 weeks that she has been having midsternal chest discomfort radiating down the left arm. Patient stated she had been taking her isosorbide as directed but the pain was becoming worse. Patient stated last evening her chest pain was a 10 out of 10 on the pain scale. On arrival to the emergency room she was giving a nitroglycerin tablet. Patient stated this did resolve her pain. Patient complained of being increased shortness of breath for the past few days. No swelling noted. Patient does have history of coronary artery disease. She is a patient of the cardiac clinic here at [facility]. Last catheterization was performed in January 2019 in which stent was placed. Patient is on Plavix and aspirin daily. Patient denies dizziness or palpitations. Upon this assessment patient is resting quietly. Denies chest pain, tightness or pressure. Patient does have history of CIS. Last CNI revealed 50 to 69% of the KIRTI and 20 to 49% on the LICA. Initial work-up was performed in the ED. EKG revealed sinus rhythm with a heart rate of 69 bpm. Troponin enzymes are negative. Lab unremarkable. Chest x-ray noted with no acute finding. Care with Dr. Mehta. Discussed with patient to undergo left heart catheterization today due to unstable angina. Discussed risk and benefits of left heart catheterization to patient. Patient verbalized understanding. Patient is agreeable to procedure. Preliminary echocardiogram reveals EF 55% with mild TR. No abnormal wall motion abnormality noted. Pending on the results of the left heart catheterization, recommendations for medication or therapy changes may be considered. Thank you for letting cardiology participate in the care of this patient. [facility] History I have reviewed the patient's past medical history: Yes Medical History: Reports:: Anxiety, Carotid Stenosis, Coronary Artery Disease, Gastroesophageal Reflux Disease(GERD), Hyperlipidemia, Hypertension, Peripheral Artery Disease, Renal Disease Denies:: Cancer, Diabetes Mellitus Type 1, Diabetes Mellitus Type 2, MRSA *Have you ever received a pneumonia vaccine?: Yes *Have you received a flu vaccine this season?: Yes Other Medical History: Reports: Arthritis Other Surgeries: Yes: Angioplasty, Appendectomy, CABG, Cardiac Catheterization, Cholecystectomy, Colonoscopy, Coronary Stent, EGD, Hysterectomy-Total, Other Amputation: No Fractures: No - *Social History Last grade of school completed: High school graduate Smoking Status: Never smoker Alcohol Intake: never Substance Use Type: denies use *Occupational Status:: employed Housing: house *Travel in the last 8 weeks: None - Psychiatric History Pschychiatric History:: Reports:: Anxiety Family Hx:: Heart Attack, Hyperlipidemia, Hypertension Meds Home Medications Medication Instructions Recorded Confirmed Type aspirin 81 mg tablet,delayed 81 mg PO DAILY 08/12/17 08/12/20 History release chlordiazepoxide HCl 5 mg capsule 5 mg PO Q8H PRN #90 cap 01/30/19 08/11/20 Rx clopidogrel 75 mg tablet 75 mg PO DAILY #90 tab 12/09/19 08/11/20 Rx Doxazosin Mesylate [Cardura 2mg 2 mg PO BID 08/11/20 08/11/20 History Tab] Isosorbide Mononitrate [Imdur 60mg 60 mg PO DAILY 08/11/20 08/11/20 History ER tablet] carvediloL [Carvedilol 12.5mg Tab] 12.5 mg PO BID 08/11/20 08/11/20 History dilTIAZ
--- NOTE | 2020-08-12 11:31 | PC.NURSE ---
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
[2020-08-12 16:03] LABS: CATHL Activated Clotting Time 361 SEC (74-125)
[2020-08-12 16:04] LABS: CATHL Activated Clotting Time > 400 SEC (74-125)
--- NOTE | 2020-08-12 18:08 | PC.NURSE ---
PT IS SITTING UP ON THE SOB EATING DINNER. NO COMPLAINTS OF CP OR SOA. ALERT AND ORIENTED X4. CATH VSS. DRESSING TO THE RT RADIAL C/D/I. PT HAS BEEN AMBULATING TO THE BATHROOM WITH 1 ASSIST. NSR ON THE MONITOR. O2 SATURATION 95-99% ON ROOM AIR. LUNG SOUNDS CLEAR. ABDOMEN SOFT/NON TENDER WITH ACTIVE BOWEL SOUNDS. WILL CONTINUE TO MONITOR.
--- NOTE | 2020-08-12 20:08 | P.PN_ITS ---
Internal Medicine - PN: Subj *Date: 08/12/20 *Time: 08:05 Interval history: pt [id number] no new c/o Exam Vital signs and Labs for Last 24 Hours: Temp Pulse Resp BP Pulse Ox 98.1 F 88 16 157/71 H 94 L 08/12/20 17:15 08/12/20 17:50 08/12/20 17:50 08/12/20 17:50 08/12/20 17:50 Laboratory Results - last 24 hr 08/11/20 21:15: Troponin I < 0.01 08/12/20 10:36: Activated Clotting Time > 400 H* 08/12/20 11:24: Activated Clotting Time 361 H* I & O for Last 24 hours: Intake & Output 08/10/20 08/11/20 08/12/20 08/13/20 11:59 11:59 11:59 11:59 Intake Total 120 / 120 600 / 600 Balance 120 / 120 600 / 600 Weight 208 lb 6 oz - Constitutional no acute distress - *Routine HEENT Exam Head: Present: normocephalic Eye: Present: PERRL ENT: Present: mucous membranes moist - *Routine Neck Exam Present: supple. Absent: lymphadenopathy - *Routine Respiratory Exam Present: CTA bilaterally - *Routine Cardiovascular Exam Present: RRR - *Routine Abdominal Exam Present: soft, normoactive bowel sounds. Absent: tenderness - *Routine Extremities Exam Absent: cyanosis, clubbing, edema - *Routine Skin Exam Present: warm. Absent: rash - *Routine Neurological Exam Present: alert, oriented X3 - Routine Psychiatric Exam Present: normal affect Assessment and Plan (1) Unstable angina Status: Acute Category: Medical Code(s): I20.0 - Unstable angina (2) CAD (coronary artery disease) Status: Chronic Qualifiers: Coronary Disease-Associated Artery/Lesion type: [place] artery [place] vs. transplanted heart: ham[place] heart Associated angina: without angina Qualified Code(s): I25.10 - Atherosclerotic heart disease of hamilton coronary artery without angina pectoris Category: Medical Code(s): I25.10 - Atherosclerotic heart disease of ham[place] coronary artery without angina pectoris (3) HLD (hyperlipidemia) Status: Chronic Qualifiers: Hyperlipidemia type: mixed hyperlipidemia Qualified Code(s): E78.2 - Mixed hyperlipidemia Category: Medical Code(s): E78.5 - Hyperlipidemia, unspecified (4) Status post coronary artery stent placement Status: Chronic Category: Surgical Code(s): Z95.5 - Presence of coronary angioplasty implant and graft - Assessment and plan all Dx Assessment and Plan for all problems:: rounded with dr santoyo all orders per dr santoyo
[2020-08-13] VITALS: BP 152/68; PULSE 79; PULSE 80; RESP 16; TEMP 36.9; O2SAT 93
[2020-08-13 03:00] VITALS: O2SAT 92
[2020-08-13 04:00] VITALS: BP 142/69; PULSE 72; PULSE 80; RESP 16; TEMP 36.8; O2SAT 92
[2020-08-13 05:00] VITALS: BMI 36.4
[2020-08-13 06:57] LABS: Basophils % 0.1 % (0.1-2.0); Hematocrit 38.2 % (37.0-47.0); Hemoglobin 12.9 g/dL (12.2-16.2); Lymphocytes # 1.4 K/mm3 (0.7-4.5); Lymphocytes % 16.4 % (10-50); Mean Corpuscular HGB Conc 33.9 g/dL (31.8-35.4); Mean Corpuscular Hemoglobin 31.9 pg (27.0-31.2); Mean Corpuscular Volume 94.2 fl (81-99); Mean Platelet Volume 7.9 fl (7.4-10.4); Monocytes # 0.5 K/mm3 (0.1-1.0); Monocytes % 5.5 % (1.7-9.3); Neutrophils # 6.8 K/mm3 (1.8-7.8); Neutrophils % 77.9 % (37.0-80.0); Platelet Count 263 K/mm3 (142-424); Red Blood Count 4.05 M/mm3 (4.20-5.40); Red Cell Distribution Width 13.9 % (11.5-17.5); White Blood Count 8.7 K/mm3 (4.8-10.8)
[2020-08-13 07:37] LABS: Anion Gap 14.1 mEq/L (5-15); Blood Urea Nitrogen 18 mg/dl (7-17); Calcium 9.5 mg/dl (8.4-10.2); Carbon Dioxide 23 mmol/L (22.0-30.0); Chloride 103 mmol/L (98-107); Creatinine Clearance Estimated 64 mL/min (50-200); Estimated Glomerular Filt Rate 48 ml/min (>60); GFR (African American) 58 ML/MIN (>60); Glucose 135 mg/dl (74-100); Potassium 4.1 mmoL/L (3.5-5.1); Sodium 136 mmol/L (136-145)
[2020-08-13 08:00] VITALS: BP 154/65; PULSE 70; PULSE 74; RESP 14; TEMP 36.9; O2SAT 94
--- NOTE | 2020-08-13 10:04 | HMH.DCSUM ---
General - General Admission date:: 08/11/20 Discharge date: 08/13/20 HPI HPI: Complains of chest pain. States that she has been having chest pains off and on for 2 weeks. Pain starts around her left shoulder blade and goes around to the front of her chest, radiates to the jaw. No exacerbating factors. Alleviated by nitroglycerin. Associated with shortness of breath, but not diaphoresis or nausea. She says the pain was worse today, off and on all day and severe this evening. She called Dr. Mehta who advised her to come to the emergency department. Currently she is pain-free after receiving aspirin prior to my evaluation. She has a long cardiac history. Cardiac bypass surgery 20 years ago. She has had multiple stents since then. She says her last stent and heart cath was a year and a half ago. She says the pain that she has been experiencing for the past 2 weeks is her typical cardiac ischemic pain. She is well known to Dr Mehat. CABG 2000 Dr Solis at [facility] [place]. Numerous stents deployed subsequently. Received asa/ntg/ntp w/relief. No chest pain at the present. Troponins were negative. Hospital Course Hospital Course: Laboratory Tests 08/11/20 08/11/20 08/11/20 15:00 15:00 15:00 WBC 6.2 RBC 4.46 Hgb 14.3 Hct 42.4 MCV 95.1 MCH 32.0 H MCHC 33.6 RDW 13.6 Plt Count 283 MPV 7.2 L Neut % (Auto) 50.4 Lymph % (Auto) 40.2 [place] % (Auto) 5.2 Eos % (Auto) 3.4 Baso % (Auto) 0.6 Neut # (Auto) 3.1 Lymph # (Auto) 2.5 [place] # (Auto) 0.3 Eos # (Auto) 0.2 Baso # (Auto) 0.0 Activated Clotting Time Sodium 136 Potassium 4.3 Chloride 102 Carbon Dioxide 25 Anion Gap 13.3 BUN 13 Creatinine 1.00 Estimated Creat Clear 70 Estimated GFR 54 L Est GFR ( Amer) 65 Glucose 112 H Calcium 9.7 Total Bilirubin 0.5 Direct Bilirubin 0.3 Conjugated Bilirubin 0.0 Indirect Bilirubin 0.2 Unconjugated Bilirubin 0.2 AST 27 ALT 18 Alkaline Phosphatase 59 Troponin I < 0.01 Total Protein 7.9 Albumin 4.9 SARS-CoV-2 IgG Ab (Rapid) Positive A SARS-CoV-2 IgM Ab (Rapid) Negative 08/11/20 08/11/20 08/12/20 18:35 21:15 10:36 WBC RBC Hgb Hct MCV MCH MCHC RDW Plt Count MPV Neut % (Auto) Lymph % (Auto) [place] % (Auto) Eos % (Auto) Baso % (Auto) Neut # (Auto) Lymph # (Auto) [place] # (Auto) Eos # (Auto) Baso # (Auto) Activated Clotting Time > 400 H* Sodium Potassium Chloride Carbon Dioxide Anion Gap BUN Creatinine Estimated Creat Clear Estimated GFR Est GFR ( Amer) Glucose Calcium Total Bilirubin Direct Bilirubin Conjugated Bilirubin Indirect Bilirubin Unconjugated Bilirubin AST ALT Alkaline Phosphatase Troponin I < 0.01 < 0.01 Total Protein Albumin SARS-CoV-2 IgG Ab (Rapid) SARS-CoV-2 IgM Ab (Rapid) 08/12/20 08/13/20 08/13/20 11:24 06:44 06:44 WBC 8.7 D RBC 4.05 L Hgb 12.9 Hct 38.2 MCV 94.2 MCH 31.9 H MCHC 33.9 RDW 13.9 Plt Count 263 MPV 7.9 Neut % (Auto) 77.9 Lymph % (Auto) 16.4 [place] % (Auto) 5.5 Eos % (Auto) 0.0 L Baso % (Auto) 0.1 Neut # (Auto) 6.8 Lymph # (Auto) 1.4 [place] # (Auto) 0.5 Eos # (Auto) 0.0 Baso # (Auto) 0.0 Activated Clotting Time 361 H* Sodium 136 Potassium 4.1 Chloride 103 Carbon Dioxide 23 Anion Gap 14.1 BUN 18 H D Creatinine 1.10 H Estimated Creat Clear 64 Estimated GFR 48 L Est GFR ( Amer) 58 L Glucose 135 H Calcium 9.5 Total Bilirubin Direct Bilirubin Conjugated Bilirubin Indirect Bilirubin Unconjugated Bilirubin AST ALT Alkaline Phosphatase Troponin I Total Protein Albumin SARS-CoV-2 IgG Ab (Rapid) SARS-CoV-2 IgM Ab (Rapid) ech
--- NOTE | 2020-08-13 10:56 | HMH.PHACLD ---
Kristie Barrera has received discharge medication counseling on the following medications: CONTINUED MEDICATIONS: ASPIRIN, PLAVIX, CARVEDILOL PATIENT IS ALLERGIC TO STATINS. CONTACTED FRANTZ IN [facility] TO DETERMINE IF PATIENT IS GOING HOME ON AN JOSE OR ARB SINCE THERE IS NO DOCUMENTATION OF IT. SHE STATES SHE WILL CONTACT DR DAWSON AND LET ME KNOW. PATIENT DOES NOT WANT TO STAY ANY LONGER AND WAIT FOR MEDICATION COUNSELING PER RN. FRANTZ CALLED BACK AND SAID DR DAWSON SAID PATIENT IS ALLERGIC TO JOSE AND ARBs. THIS IS NOT LISTED UNDER ALLERGIES. FRANTZ STATES SHE WILL ADD AN ADDENDUM TO HER DISCHARGE SUMMARY. PHARMACY WILL ADD THESE TO HER ALLERGY LIST.
--- NOTE | 2020-08-13 15:32 | PC.NURSE ---
DURING 8 AM ASSESSMENT, PATIENT INFORMED THIS RN THAT SHE HAD ALREADY PHONED HER SON TO COME PICK HER UP. THIS RN EXPLAINED THAT A DISCHARGE ORDER WILL HAVE TO BE ORDERED. PATIENT THEN INFORMED THIS RN THAT LIANA SAID I COULD GO HOME. DURING MD ROUNDS, PATIENT WAS INFORMED THAT SHE WOULD BE DISCHARGED TODAY. AT 930 AM PATIENT INQUIRED WHAT WAS TAKING SO LONG. THIS RN SPOKE WITH DR. ROUSE WHO THEN INFORMED ME THAT FRANTZ WAS WORKING ON HER DISCHARGE. FRANTZ PHONED THIS RN AND STATED THAT SHE WAS WORKING ON IT. AFTER D/C EDUCATION FROM ELZA, RN, THIS RN INFORMED PATIENT THAT PHARMACY CONSULTATION NEEDED TO BE COMPLETE BEFORE LEAVING. CHINO PHONED THIS RN AND STATED THAT PATIENT DID NOT HAVE ALL THAT IS REQUIRED FOR CARDIAC D/C. JP STATED THAT SHE WOULD TALK TO FRANTZ. AT 10:30 AM THIS RN FOUND PATIENT LEAVING THE FLOOR VIA THE EMERGENCY EXIT, THIS RN STOPPED PATIENT AND INQUIRED WHERE SHE WAS GOING, PATIENT STATED, I AM GETTING OUT OF HERE! I DON'T NEED TO WAIT FOR SOMEONE TO EXPLAIN MY MEDICATION TO ME THAT I HAVE BEEN TAKING FOR OVER 2 YEARS!. THIS RN INFORMED PATIENT THAT IT WAS THE EMERGENCY EXIT AND THAT THIS RN WOULD PHONE PHARMACY. PER JP RIVERA, FRANTZ WAS WAITING ON DR. DAWSON FOR ORDERS. PATIENT SAT DOWN ON BED AND PHONED DR. DAWSON FROM HER CELL PHONE. MD SPOKE TO THIS RN AND STATED THAT SHE CAN LEAVE. NO OTHER CONCERNS AT THIS TIME.
== END 2020-08-13 11:02 | disposition home or self-care (01) ==
LOC: ER 17:05 → 2ND 19:23
PROVIDERS: Internal Medicine; Admitting Provider Family Medicine; Emergency Provider Emergency Medicine; PCP Nurse Practitioner Family; Visit Provider Family Medicine
DX: I25.110 Atherosclerotic heart disease of native coronary artery with unstable angina pectoris (principal); I11.9 Hypertensive heart disease without heart failure; Z95.1 Presence of aortocoronary bypass graft; Z95.5 Presence of coronary angioplasty implant and graft; E78.5 Hyperlipidemia, unspecified; Z88.0 Allergy status to penicillin; Z88.1 Allergy status to other antibiotic agents; Z88.2 Allergy status to sulfonamides; Z88.8 Allergy status to other drugs, medicaments and biological substances; Z79.01 Long term (current) use of anticoagulants; Z79.82 Long term (current) use of aspirin; Z79.899 Other long term (current) drug therapy
CPT/HCPCS: 36415; 71045; 80048; 80076; 84484; 85025; 85347; 86328; 92928; 93005; 93306; 93459; 99152; 99153; 99284; C1725; C1769; C1876; C9600; G0378; J1644; Q9967

== ENCOUNTER 2020-11-16 09:49 | Observation (INO) | payer MEDICARE, SELFPAY ==
[2020-11-16] VITALS (23 sets, daily range): BP systolic 133–173; BP diastolic 52–93; PULSE 44–79; RESP 12–22; TEMP 36.4; O2SAT 93–100; BMI 36.2; BMI 35.5
--- NOTE | 2020-11-16 | IR_ITS ---
APPROVED REPORT Patient Location: [facility] Service Attendant: KEZIA Lopez RT (R) PROCEDURES Left heart catheterization Left ventriculogram Selective coronary angiogram INDICATION Unstable angina, Known coronary artery disease, History of coronary bypass surgery with loss of all grafts Informed consent was obtained prior to the procedure. COMPLICATIONS NONE Estimated Blood Loss: LESS THAN 10 ML TECHNIQUE One percent lidocaine used to anesthetize the right anterior aspect of the wrist. The right radial artery was accessed via the Seldinger technique. A 6 Macanese sheath was placed in the right radial artery. 2.5 mg of verapamil, 800 mcg of nitroglycerin, 1mg Lidocaine and 5000 U Heparin were given through the arterial sheath. A 23 cm long hydrophilic sheath had to be used in order to get past the spastic radial artery. A Poppa catheter was also used to perform left heart catheterization, left ventriculogram and selective coronary angiogram. At the end of the procedure the sheath was removed good hemostasis was achieved using Traclet band, patient was transferred to the postop holding area in stable condition. ANGIOGRAPHIC RESULTS The left main artery Has a stent in the ostial segment which extends throughout its entire course the stent is widely patent free of in-stent restenosis with excellent transitioning into the circumflex artery and LAD The left anterior descending artery Has a stent which originates off the left main artery which is widely patent and extends throughout the mid segment in a contiguous manner the stent is widely patent with minimal in-stent restenosis. The remaining LAD has mild atheromatous plaque nothing greater than 10%. A large first diagonal artery has a stent which bifurcates off the proximal LAD which is also widely patent with excellent flow The circumflex artery Is a nondominant vessel with a stent originating off the left main artery which is widely patent with mild 20% in-stent restenosis The right coronary artery Is dominant and ostially occluded The KLEIN ventriculogram reveals Preserved 50% The left ventricular end-diastolic pressure 20 mmHg IMPRESSION Widely patent coronary arteries as described above Preserved ejection fraction Borderline elevated LVEDP PLAN 1. Evaluation of noncardiac chest pain 2. If chest pain persists tomorrow morning I would recommend CAT scan of the chest 3. Continue medical management with observation overnight Electronically signed by : Santi Mehta, 11/16/2020 14:18:19
--- NOTE | 2020-11-16 09:39 | ECG_ITS ---
APPROVED REPORT Exam: Resting ECG HR:57 bpm ECG Measurements Heart Rate 57 AXES NC 172 P 33 QRSd 98 QRS 62 QT 412 T 82 QTc [address] abnormality, nonspecific, and old finding Abnormal ECG Electronically signed by : King Lange, 11/16/2020 16:56:46
--- NOTE | 2020-11-16 09:55 | HMH.EDGENADL ---
ED Disposition Clinical Impression: Chest pain Qualifiers: Chest pain type: unspecified Qualified Code(s): R07.9 - Chest pain, unspecified Disposition: Still a Patient Condition on Discharge: Good Referrals: Provider,Referral, [Referring] - - Critical Care Critical Care Time: No Attestation: On , the high probability of a clinically significant, sudden or life threatening deterioration of the following system(s) required my full and direct attention, intervention and personal management. The time I documented below is in addition to time spent performing reported procedures but includes the following listed in this critical care notation. Medical Decision Making - Medical Records Medical records reviewed: Yes: I reviewed the patient's medical records. MR Comment: Prior [facility] reviewed, see report below. Cardiology visit 09/12/2020 reviewed. - Randal Inquiry Pt receiving controlled substance: No Vital Signs: 11/16/20 09:50 11/16/20 10:42 11/16/20 11:00 Temperature 97.6 F Temperature Source Oral Pulse Rate 62 63 Pulse Rate [Left Radial] 64 Respiratory Rate 22 17 12 Blood Pressure 141/75 H 147/72 H Blood Pressure [Right Arm] 159/61 H Blood Pressure Mean [Right Arm] 93 Blood Pressure Source [Right Arm] Automatic Cuff Blood Pressure Position [Right Arm] Sitting 02 Sat by Pulse Oximetry 95 97 96 Oxygen Delivery Method Room Air 11/16/20 11:01 11/16/20 11:31 Temperature Temperature Source Pulse Rate 61 54 L Pulse Rate [Left Radial] Respiratory Rate 14 13 Blood Pressure 147/72 H 134/61 Blood Pressure [Right Arm] Blood Pressure Mean [Right Arm] Blood Pressure Source [Right Arm] Blood Pressure Position [Right Arm] 02 Sat by Pulse Oximetry 99 93 L Oxygen Delivery Method - Lab Data Lab Results 11/16/20 09:50: WBC 6.3, RBC 4.23, Hgb 13.1, Hct 38.9, MCV 92.0, MCH 31.0, MCHC 33.7, RDW 13.2, Plt Count 270, MPV 7.5, Neut % (Auto) 48.8, Lymph % (Auto) 40.8, [place] % (Auto) 5.9, Eos % (Auto) 3.9, Baso % (Auto) 0.6, Neut # (Auto) 3.1, Lymph # (Auto) 2.6, [place] # (Auto) 0.4, Eos # (Auto) 0.3, Baso # (Auto) 0.0 11/16/20 09:50: Sodium 135 L, Potassium 4.4, Chloride 102, Carbon Dioxide 24, Anion Gap 13.4, BUN 21 H, Creatinine 1.10 H, Estimated Creat Clear 64, Estimated GFR 48 L, Est GFR ( Amer) 58 L, Glucose 116 H, Calcium 9.7, Troponin I < 0.01 11/16/20 10:26: Chlamy pneumoniae PCR Not detected, Adenovirus (PCR) Not detected, B. pertussis DNA (PCR) Not detected, Coronavirus OC43 (PCR) Not detected, Coronavirus HKU1 (PCR) Not detected, Coronavirus 229E (PCR) Not detected, SARS-CoV-2 (PCR) Not detected, Coronavirus NL63 (PCR) Not detected, Human Metapneumovir PCR Not detected, Influenza A (H1) PCR Not detected, Influ A (H1N1/09) PCR Not detected, Influenza A (H3) PCR Not detected, Influenza Type A (PCR) Not detected, Influenza Type B (PCR) Not detected, M. pneumoniae (PCR) Not detected, Parainfluenza 1 (PCR) Not detected, Parainfluenza 2 (PCR) Not detected, Parainfluenza 3 (PCR) Not detected, Parainfluenza 4 (PCR) Not detected, RSV (PCR) Not detected, Entero/Rhino (PCR) Not detected Result diagrams: 11/16/20 09:50 11/16/20 09:50 Orders (Tests/Meds): ED MEDICATIONS Discontinued Medications Generic Name Dose Route Start Last Admin Trade Name Freq PRN Reason Stop Dose Admin Aspirin 324 mg 11/16/20 10:01 11/16/20 10:10 Aspirin 81mg Chewable Tablet PO 11/16/20 10:02 324 mg ONCE ONE Administration ORDERS Category Date Time Status Consult to Cardiology [CONS] Routine Cons 11/16/20 10:57 Active Troponin I Q3H Lab 11/16/20 13:15 Ordered Troponin I Q3H Lab 11/16/20 16:15 Ordered Prior LHC: PROCEDURES Left heart catheterization Left ventriculogram Selective coronary angiogram Drug-eluting stent deployment to the proximal LAD Drug-eluting stent deployment to the proximal circumflex artery Drug-eluting stent deployment to the left main artery INDIC
--- NOTE | 2020-11-16 10:00 | XR_ITS ---
PROCEDURE: XR CHEST 2V CLINICAL HISTORY: chest pain COMPARISON: CR Chest from 01/21/2019 CR XR CHEST PORTABLE from 08/11/2020 FINDINGS: Prior CABG. Normal heart size. Coronary artery stents are present. The lungs are clear without infiltrates, suspicious nodules, or pleural effusions. No acute bony abnormalities. IMPRESSION: No acute findings. Dictated by: Eric Valadez MD 11/16/2020 10:28 Eric Valadez MD in [place] 11/16/2020 10:28
--- NOTE | 2020-11-16 10:06 | PC.NURSE ---
Pt to rad.
[2020-11-16 10:12] LABS: Basophils % 0.6 % (0.1-2.0); Eosinophils # 0.3 K/mm3 (0.0-0.4); Eosinophils % 3.9 % (0.1-12.0); Hematocrit 38.9 % (37.0-47.0); Hemoglobin 13.1 g/dL (12.2-16.2); Lymphocytes # 2.6 K/mm3 (0.7-4.5); Lymphocytes % 40.8 % (10-50); Mean Corpuscular HGB Conc 33.7 g/dL (31.8-35.4); Mean Platelet Volume 7.5 fl (7.4-10.4); Monocytes # 0.4 K/mm3 (0.1-1.0); Monocytes % 5.9 % (1.7-9.3); Neutrophils # 3.1 K/mm3 (1.8-7.8); Neutrophils % 48.8 % (37.0-80.0); Platelet Count 270 K/mm3 (142-424); Red Blood Count 4.23 M/mm3 (4.20-5.40); Red Cell Distribution Width 13.2 % (11.5-17.5); White Blood Count 6.3 K/mm3 (4.8-10.8)
[2020-11-16 10:28] LABS: Chloride 102 mmol/L (98-107)
[2020-11-16 10:29] LABS: Potassium 4.4 mmoL/L (3.5-5.1); Sodium 135 mmol/L (136-145)
[2020-11-16 10:32] LABS: Anion Gap 13.4 mEq/L (5-15); Blood Urea Nitrogen 21 mg/dl (7-17); Calcium 9.7 mg/dl (8.4-10.2); Carbon Dioxide 24 mmol/L (22.0-30.0); Creatinine Clearance Estimated 64 mL/min (50-200); Estimated Glomerular Filt Rate 48 ml/min (>60); GFR (African American) 58 ML/MIN (>60); Glucose 116 mg/dl (74-100)
[2020-11-16 10:52] LABS: Troponin I < 0.01 ng/ml (0.00-0.034)
--- NOTE | 2020-11-16 10:59 | PC.NURSE ---
Cardiology called for consult
[2020-11-16 11:01] LABS: Adenovirus,PCR Not Detected (NotDetected); Bordetella Pertussis Not Detected (NotDetected); Chlamydophila Pneumoniae, PCR Not Detected (NotDetected); Coronavirus 19, PCR Not Detected (NotDetected); Coronavirus 229E Not Detected (NotDetected); Coronavirus NL63 Not Detected (NotDetected); Coronavirus OC43 Not Detected (NotDetected); Coronovirus HKU1,PCR Not Detected (NotDetected); Human Metapneumovirus Not Detected (NotDetected); Influenza A, PCR Not Detected (NotDetected); Influenza AH1, 2009 Not Detected (NotDetected); Influenza AH1, PCR Not Detected (NotDetected); Influenza AH3,PCR Not Detected (NotDetected); Influenza B, PCR Not Detected (NotDetected); Mycoplasma Pneumoniae, PCR Not Detected (NotDetected); Parainfluenza 1, PCR Not Detected (NotDetected); Parainfluenza 2, PCR Not Detected (NotDetected); Parainfluenza 3, PCR Not Detected (NotDetected); Parainfluenza 4, PCR Not Detected (NotDetected); Respiratory Syncytial Virus Not Detected (NotDetected); Rhinovirus/Enterovirus Not Detected (NotDetected)
--- NOTE | 2020-11-16 12:45 | PC.NURSE ---
Dr Mehta at bedside
--- NOTE | 2020-11-16 13:07 | PC.NURSE ---
pt to warehouse laborer with Reynaldo Lind RN
--- NOTE | 2020-11-16 15:33 | HMH.CNCARD ---
History of Present Illness Consult date: 11/16/20 Requesting physician: Garfield Garces Consult reason: chest pain Chief complaint: chest pain History of present illness: This is a 80 year old white female who presented to the emergency department complaint of chest pain. The patient states that approximately a week ago her sister called her because her sisters has been had in his sleep. The patient states that she jumped up from this phone call and had sudden onset of chest pain and has persisted to have this chest pain on and off since that time. She states it initially started in her left shoulder and then radiated around into the left side of her chest and then felt as if she had a squeezing vice around both of her arms and into her chest. She states that this occurs intermittently. She states nothing makes the chest pain worse. It is improved with the isosorbide that she takes daily. Is associated with shortness of breath, nausea and occasionally some diaphoresis. The patient states that this can be severe. She states that this chest pain woke her up this morning and was worse than usual. She states that the isosorbide once again improved the chest pain this morning but it did not completely resolve. She states that this can be severe. [facility] History I have reviewed the patient's past medical history: Yes Medical History: Reports:: Anxiety, Carotid Stenosis, Coronary Artery Disease, Gastroesophageal Reflux Disease(GERD), Hyperlipidemia, Hypertension, Peripheral Artery Disease, Renal Disease Denies:: Cancer, Diabetes Mellitus Type 1, Diabetes Mellitus Type 2, MRSA *Have you ever received a pneumonia vaccine?: No *Have you received a flu vaccine this season?: No Other Medical History: Reports: Arthritis Other Surgeries: Yes: Angioplasty, Appendectomy, CABG, Cardiac Catheterization, Cholecystectomy, Colonoscopy, Coronary Stent, EGD, Hysterectomy-Total, Other Amputation: No Fractures: No - *Social History Smoking Status: Never smoker Alcohol Intake: never Substance Use Type: denies use *Occupational Status:: employed Housing: house *Travel in the last 8 weeks: None - Psychiatric History Pschychiatric History:: Reports:: Anxiety Family Hx:: Heart Attack, Hyperlipidemia, Hypertension Meds Home Medications Medication Instructions Recorded Confirmed Type aspirin 81 mg tablet,delayed 81 mg PO DAILY 08/12/17 09/12/20 History release chlordiazepoxide HCl 5 mg capsule 5 mg PO Q8H PRN #90 cap 01/30/19 09/12/20 Rx clopidogrel 75 mg tablet 75 mg PO DAILY #90 tab 12/09/19 09/12/20 Rx Isosorbide Mononitrate [Imdur 60mg 60 mg PO DAILY 08/11/20 09/12/20 History ER tablet] carvediloL [Carvedilol 12.5mg Tab] 12.5 mg PO BID 08/11/20 09/12/20 History dilTIAZem HCl [Diltiazem 240mg 240 mg PO DAILY 08/11/20 09/12/20 History 24Hr ER Cap] doxazosin 2 mg tablet 2 mg PO BID #60 tab 09/12/20 09/12/20 Rx Allergies Allergy/AdvReac Type Severity Reaction Status Date / Time JOSE Inhibitors Allergy Unknown Verified 09/12/20 11:14 allergy reaction ARB-Angiotensin Receptor Allergy Unknown Verified 09/12/20 11:14 Antagonist allergy reaction doxycycline Allergy Unknown Verified 09/12/20 11:14 allergy reaction Fish Containing Products Allergy Unknown Verified 11/16/20 15:25 allergy reaction nitrofurantoin Allergy Unknown Verified 09/12/20 11:14 [From Macrodantin] allergy reaction Penicillins Allergy Unknown Verified 09/12/20 11:14 allergy reaction shellfish derived Allergy Unknown Verified 11/16/20 15:25 allergy reaction Xjqfnqa-Uex-Hik Reductase Allergy Unknown Verified 09/12/20 11:14 Inhibitor allergy reaction Sulfa (Sulfonamide Allergy Unknown Verified 09/12/20 11:14 Antibiotics) allergy reaction Exam Vital signs and Labs for Last 24 Hours: Temp Pulse Resp BP Pulse Ox 97.6 F 50 L 20 173/81 H 97 11/16/20 1
--- NOTE | 2020-11-16 15:59 | HMH.PHAVTE ---
[facility] Pharmacy VTE Monitoring - Patient Demographics Admission date: 11/16/20 Report Date: 11/16/20 Time: 15:59 Allergies/Adverse Reactions: Patient Allergies JOSE Inhibitors Allergy (Verified 09/12/20 11:14) Unknown allergy reaction ARB-Angiotensin Receptor Antagonist Allergy (Verified 09/12/20 11:14) Unknown allergy reaction doxycycline Allergy (Verified 09/12/20 11:14) Unknown allergy reaction Fish Containing Products Allergy (Verified 11/16/20 15:25) Unknown allergy reaction nitrofurantoin [From Macrodantin] Allergy (Verified 09/12/20 11:14) Unknown allergy reaction Penicillins Allergy (Verified 09/12/20 11:14) Unknown allergy reaction shellfish derived Allergy (Verified 11/16/20 15:25) Unknown allergy reaction Robhuzp-Kfd-Svh Reductase Inhibitor Allergy (Verified 09/12/20 11:14) Unknown allergy reaction Sulfa (Sulfonamide Antibiotics) Allergy (Verified 09/12/20 11:14) Unknown allergy reaction Height: 1.63 m Weight: 95.708 kg Patient Problems: Current Active Problems Unstable angina (Acute) Chest pain (Acute) Status post coronary artery stent placement (Chronic) PAD (peripheral artery disease) (Chronic) HLD (hyperlipidemia) (Chronic) CAD (coronary artery disease) (Chronic) Carotid artery stenosis (Chronic) Hypertensive heart disease (Chronic) - VTE Risk Labs: VTE Related Lab Results Hgb 13.1 g/dL (12.2-16.2) 11/16/20 09:50 Hct 38.9 % (37.0-47.0) 11/16/20 09:50 Plt Count 270 K/mm3 (142-424) 11/16/20 09:50 BUN 21 mg/dl (7-17) H 11/16/20 09:50 Creatinine 1.10 mg/dl (0.52-1.04) H 11/16/20 09:50 Estimated Creat Clear 64 mL/min (50-200) 11/16/20 09:50 - Prophylaxis VTE Prophylaxis Ordered?: Yes Types of VTE Prophylaxis: TEDS Knee High Location of Applied Device: Bilateral Lower Extremeties
[2020-11-17] VITALS: BP 116/62; PULSE 70; PULSE 75; RESP 24; TEMP 36.6; O2SAT 98
--- NOTE | 2020-11-17 00:29 | PC.NURSE ---
AT START OF SHIFT PATIENT WAS A&O X3, PATIENT AWOKE AT 2330 ASKING WHERE SHE WAS, PATIENT WAS RE ORIENTED AND PATIENT WENT TO SLEEP. LUNGS ARE CLEAR, PULSES ARE EQUAL. RIGHT RADIAL CATHERIZATION SITE IS CLEAN, DRY AND INTACT. NO BRUISING NOTED. NO OTHER NEEDS AT THIS TIME.
[2020-11-17 04:00] VITALS: BP 160/72; PULSE 70; PULSE 78; RESP 20; TEMP 36.5; O2SAT 95; BMI 34.9
[2020-11-17 06:56] LABS: Hematocrit 38.8 % (37.0-47.0); Hemoglobin 13.4 g/dL (12.2-16.2)
[2020-11-17 07:05] LABS: Anion Gap 10.9 mEq/L (5-15); Blood Urea Nitrogen 18 mg/dl (7-17); Calcium 9.7 mg/dl (8.4-10.2); Carbon Dioxide 23 mmol/L (22.0-30.0); Chloride 106 mmol/L (98-107); Creatinine Clearance Estimated 68 mL/min (50-200); Estimated Glomerular Filt Rate 54 ml/min (>60); GFR (African American) 65 ML/MIN (>60); Glucose 138 mg/dl (74-100); Potassium 3.9 mmoL/L (3.5-5.1); Sodium 136 mmol/L (136-145)
[2020-11-17 08:00] VITALS: BP 114/71; PULSE 67; RESP 18; TEMP 36.8; O2SAT 96
[2020-11-17 08:11] VITALS: PULSE 90
--- NOTE | 2020-11-17 10:25 | HMH.PHAINT ---
MEDICATION RECONCILIATION COMPLETED ON PATIENT USING EXTERNAL FILL HISTORY FORM PHARMACY AND LIST FROM CARDIOLOGY OFFICE. -VICTORIA ANDREWD
--- NOTE | 2020-11-17 11:25 | CT_ITS ---
PROCEDURE: CT ANGIO CHEST CLINCIAL INDICATION: soa Left-sided chest pain, history of Covid19 COMPARISON: [facility] from 01/08/2017 TECHNIQUE: IV Contrast: 70ML Isovue 370 Axial images obtained with sagittal and coronal reformats. All CT scans at the facility use one or more dose reduction, viz: automated exposure control, ma/kV adjustment per patient size (including targeted exams where dose is matched to indication, i.e. head), or iterative reconstruction technique. FINDINGS: HEART AND MEDIASTINAL STRUCTURES: Status post CABG. Normal heart size.. No evidence of pulmonary embolus, aortic aneurysm, or aortic dissection. LUNGS AND PLEURAL SPACES: No lobar consolidation or collapse. No ground-glass opacities. There is minimal atelectatic change in the lung bases. No effusions. BONY STRUCTURES: No acute bony abnormalities apparent. UPPER ABDOMEN: Mild nonspecific thickening of the distal esophagus with a small hiatal hernia. ADDITIONAL FINDINGS: No other significant abnormalities. IMPRESSION: 1. No evidence of pulmonary embolus, aortic aneurysm or dissection 2. No acute finding. 3. Small hiatal hernia with mildly thickened distal esophagus which may be seen reflux esophagitis. Dictated by: Eric Valadez MD 11/17/2020 13:49 Eric Valadez MD in [place] 11/17/2020 13:49
--- NOTE | 2020-11-17 11:49 | HMH.PNCARD ---
Subjective Date: 11/17/20 Time: 11:49 Principal diagnosis: angina, soa Interval history: This is a 80-year-old white female presented to the emergency department complaints of chest pain. She was also having shortness of breath. The patient was taken to the cardiac catheterization laboratory yesterday and had widely patent coronary artery disease. She had a preserved ejection fraction and a borderline elevated LVEDP. This morning she states that she did not have chest pain when she woke up like she had been for the last week. She states that she has had a few twinges but the chest pain has improved. She is still having shortness of breath. This is worse with exertion and improves with rest. The patient was kept overnight after left cardiac catheterization to have a CAT scan of the chest to rule out PE. Exam Vital signs and Labs for Last 24 Hours: Temp Pulse Resp BP Pulse Ox 98.3 F 90 18 114/71 96 11/17/20 08:00 11/17/20 08:11 11/17/20 08:00 11/17/20 08:00 11/17/20 08:00 Laboratory Results - last 24 hr 11/16/20 10:26: Chlamy pneumoniae PCR Not detected, Adenovirus (PCR) Not detected, B. pertussis DNA (PCR) Not detected, Coronavirus OC43 (PCR) Not detected, Coronavirus HKU1 (PCR) Not detected, Coronavirus 229E (PCR) Not detected, SARS-CoV-2 (PCR) Not detected, Coronavirus NL63 (PCR) Not detected, Human Metapneumovir PCR Not detected, Influenza A (H1) PCR Not detected, Influ A (H1N1/09) PCR Not detected, Influenza A (H3) PCR Not detected, Influenza Type A (PCR) Not detected, Influenza Type B (PCR) Not detected, M. pneumoniae (PCR) Not detected, Parainfluenza 1 (PCR) Not detected, Parainfluenza 2 (PCR) Not detected, Parainfluenza 3 (PCR) Not detected, Parainfluenza 4 (PCR) Not detected, RSV (PCR) Not detected, Entero/Rhino (PCR) Not detected 11/17/20 06:15: Hgb 13.4, Hct 38.8 11/17/20 06:15: Sodium 136, Potassium 3.9, Chloride 106, Carbon Dioxide 23, Anion Gap 10.9, BUN 18 H, Creatinine 1.00, Estimated Creat Clear 68, Estimated GFR 54 L, Est GFR ( Amer) 65, Glucose 138 H, Calcium 9.7 I & O for Last 24 hours: Intake & Output 11/14/20 11/15/20 11/16/20 11/17/20 23:59 23:59 23:59 23:59 Intake Total 240 / 240 250 / 250 Balance 240 / 240 250 / 250 Weight 207 lb 4 oz 204 lb 8 oz - Constitutional no acute distress, obese - *Routine HEENT Exam Head: Present: normocephalic, atraumatic Eye: Present: EOMI, PERRL ENT: Present: mucous membranes moist - *Routine Neck Exam Present: supple, full ROM, normal carotid upstroke. Absent: JVD, carotid bruit, lymphadenopathy - *Routine Respiratory Exam Present: CTA bilaterally - *Routine Cardiovascular Exam Present: RRR, Normal S1, Normal S2. Absent: murmur - *Routine Abdominal Exam Present: soft, normoactive bowel sounds. Absent: tenderness, distended - *Routine Extremities Exam Present: full ROM, pulses intact, normal capillary refill. Absent: cyanosis, clubbing, edema - *Routine Skin Exam Present: intact, warm. Absent: erythema, rash - *Routine Neurological Exam Present: alert, oriented X3, CN II-XII intact. Absent: sensory deficit, motor deficit Progress Note: A&P (1) Shortness of breath Status: Acute (2) Unstable angina Status: Resolved (3) Status post coronary artery stent placement Status: Chronic (4) PAD (peripheral artery disease) Status: Chronic (5) HLD (hyperlipidemia) Status: Chronic (6) CAD (coronary artery disease) Status: Chronic (7) Carotid artery stenosis Status: Chronic (8) Hypertensive heart disease Status: Chronic Assessment and Plan for All Diagnoses:: plan: 1. The patient was admitted to the hospital underwent left cardiac catheterization had patent CAD. Her coronary artery disease is stable. 2. Blood pressures well controlled. 3. LDL goal is less than 55. 4. The patient continues to have shortness of breath. We will get a CTA of the chest with PE protocol today. 5. As nathaniel
[2020-11-17 12:00] VITALS: BP 115/80; PULSE 63; RESP 17; TEMP 36.6; O2SAT 97
[2020-11-17 16:00] VITALS: BP 144/60; PULSE 63; RESP 17; TEMP 36.6; O2SAT 95
--- NOTE | 2020-11-17 16:41 | HMH.HPDC ---
General - General Admission date:: 11/16/20 Discharge date: 11/17/20 *Admission Date: 11/16/20 *Chief complaint: chest pain *History of present illness: 80 year old white female who presented to the emergency department complaint of chest pain. The patient states that approximately a week ago her sister called her because her sisters has been had in his sleep. The patient states that she jumped up from this phone call and had sudden onset of chest pain and has persisted to have this chest pain on and off since that time. She states it initially started in her left shoulder and then radiated around into the left side of her chest and then felt as if she had a squeezing vice around both of her arms and into her chest. She states that this occurs intermittently. She states nothing makes the chest pain worse. It is improved with the isosorbide that she takes daily. Is associated with shortness of breath, nausea and occasionally some diaphoresis. The patient states that this can be severe. She states that this chest pain woke her up this morning and was worse than usual. She states that the isosorbide once again improved the chest pain this morning but it did not completely resolve. She states that this can be severe.- per cardiology [facility] History I have reviewed the patient's past medical history: Yes Medical History: Reports:: Anxiety, Carotid Stenosis, Coronary Artery Disease, Gastroesophageal Reflux Disease(GERD), Hyperlipidemia, Hypertension, Peripheral Artery Disease, Renal Disease Denies:: Cancer, Diabetes Mellitus Type 1, Diabetes Mellitus Type 2, MRSA *Have you ever received a pneumonia vaccine?: Yes *Have you received a flu vaccine this season?: Yes Other Medical History: Reports: Arthritis Other Surgeries: Yes: Angioplasty, Appendectomy, CABG, Cardiac Catheterization, Cholecystectomy, Colonoscopy, Coronary Stent, EGD, Hysterectomy-Total, Other Amputation: No Fractures: No - *Social History Smoking Status: Never smoker Alcohol Intake: never Substance Use Type: denies use *Occupational Status:: employed Housing: house *Travel in the last 8 weeks: None - Psychiatric History Pschychiatric History:: Reports:: Anxiety Family Hx:: Cancer, Heart Attack, Hypertension, Stroke Review of Systems - Review of Systems Review of systems:: pertinent systems reviewed and negative unless documented below - Constitutional Denies body ache(s), Denies fatigue - Eyes Denies change in vision - ENT Denies dry mouth - *Cardiovascular Reports chest pain, Reports chest pain at rest, Reports chest pain with activity - *Respiratory Denies chest congestion - *Gastrointestinal Denies abdominal pain - *Genitourinary Denies vaginal discharge - *Musculoskeletal Denies joint pain - Integumentary/Breasts Denies rash - *Neurologic Denies dizziness - Psychiatric Denies lack of enjoyment - Endocrine Denies excessive sweating - Hematologic/Lymphatic Denies easy bruising - Allergic/Immunologic Denies itchy eyes Exam Vital signs and Labs for Last 24 Hours: Temp Pulse Resp BP Pulse Ox 97.8 F 63 17 144/60 H 95 11/17/20 16:00 11/17/20 16:00 11/17/20 16:00 11/17/20 16:00 11/17/20 16:00 Laboratory Results - last 24 hr 11/17/20 06:15: Hgb 13.4, Hct 38.8 11/17/20 06:15: Sodium 136, Potassium 3.9, Chloride 106, Carbon Dioxide 23, Anion Gap 10.9, BUN 18 H, Creatinine 1.00, Estimated Creat Clear 68, Estimated GFR 54 L, Est GFR ( Amer) 65, Glucose 138 H, Calcium 9.7 I & O for Last 24 hours: Intake & Output 11/15/20 11/16/20 11/17/20 11/18/20 11:59 11:59 11:59 11:59 Intake Total 490 / 490 120 / 120 Balance 490 / 490 120 / 120 Weight 211 lb 204 lb 8 oz - Constitutional no acute distress, obese - *Routine HEENT Exam Head: Present: normocephalic Eye: Present: PERRL ENT: Present: mucous membranes moist - *Routine Neck Exam Present: supple. Absent: lymphadenopath
== END 2020-11-17 17:15 | disposition home or self-care (01) ==
LOC: ER 12:57 → 2ND 14:53
PROVIDERS: Internal Medicine; Admitting Provider Emergency Medicine; Emergency Provider Emergency Medicine; PCP Nurse Practitioner Family; Visit Provider Emergency Medicine
DX: R07.9 Chest pain, unspecified (principal); I25.110 Atherosclerotic heart disease of native coronary artery with unstable angina pectoris; Z95.1 Presence of aortocoronary bypass graft; I10 Essential (primary) hypertension; Z79.02 Long term (current) use of antithrombotics/antiplatelets; Z79.82 Long term (current) use of aspirin; Z88.0 Allergy status to penicillin; Z88.2 Allergy status to sulfonamides; Z88.8 Allergy status to other drugs, medicaments and biological substances; T82.855A Stenosis of coronary artery stent, initial encounter; Y83.1 Surgical operation with implant of artificial internal device as the cause of abnormal reaction of the patient, or of later complication, without mention of misadventure at the time of the procedure
CPT/HCPCS: 71046; 71275; 80048; 84484; 85014; 85018; 85025; 87581; 87633; 87798; 93005; 93459; 99152; 99153; 99284; C1725; C1769; G0378; J1644; Q9967

== ENCOUNTER → 2020-11-23 13:21 | Outpatient (CLI) | payer MEDICARE, SELFPAY ==
[2020-11-23 13:42] LABS: Blood Urea Nitrogen 13 mg/dl (7-17); Estimated Glomerular Filt Rate 48 ml/min (>60); GFR (African American) 58 ML/MIN (>60)
--- NOTE | 2020-11-23 15:33 | CT_ITS ---
PROCEDURE: CT ABDOMEN PELVIS WO/W CON CLINICAL INDICATION: hiatal hernia/gastritis. COMPARISON: No exams were available for comparison TECHNIQUE: CT of the abdomen and pelvis with multiplanar 3D MIP reformations. Performed with and without IV contrast. Dose modulation, automated exposure control, and/or iterative reconstruction were used for dose reduction. Contast: 75 ml Isovue 370 FINDINGS: LOWER THORAX: The visualized lung bases are clear. Median sternotomy and coronary arterial grafts are partially visualized. Aortic valve calcification is noted. HEPATOBILIARY: Liver: No focal hepatic lesions. Gallbladder: The gallbladder is surgically absent. Biliary: No intrahepatic or extrahepatic ductal dilation. PANCREAS: No focal masses or ductal dilatation. SPLEEN:No splenomegaly. Few splenic calcifications are noted, suggest prior granulomatous disease. ADRENALS:No adrenal nodules. KIDNEYS/URETERS/BLADDER: No hydronephrosis, stones, or solid mass lesions are seen in the visualized portions of the kidneys.Mildly atrophic right kidney is noted. PERITONEUM / RETROPERITONEUM: No free air or fluid. Peritoneum LYMPH NODES: No free air or fluid. GI TRACT: Few uncomplicated colonic diverticula are present. No evidence of inflammation or bowel obstruction. Heterogeneous wall thickening of the cecum and ascending colon is noted, likely secondary to poor luminal distention. The appendix is not visualized. No secondary signs of appendicitis noted. Moderate hiatus hernia is noted. The stomach is otherwise unremarkable. VASCULAR: Aorta:Atherosclerotic vascular calcification is noted. The aorta is normal in caliber. Iliacs: The bilateral common iliac arteries are normal in caliber. ABDOMINAL WALL: Postsurgical changes of the anterior abdominal wall. SOFT TISSUES: Unremarkable. BONES: Degenerative changes are present in the spine. Anterolisthesis of L4 over L5 is noted measuring 4 millimeters. IMPRESSION: Moderate hiatus hernia. Colonic diverticula without evidence of diverticulitis. Heterogeneous wall thickening of the ascending colon. This may be secondary to under distention. Colonic neoplasm cannot be completely excluded. Colonoscopy is suggested for further evaluation. Anterolisthesis of L4 over L5 measuring 4 millimeters. Other chronic findings as described above. Dictated by: Caitie Johnson 11/23/2020 16:31 Caitie Johnson in [place] 11/23/2020 16:31
== END ==
PROVIDERS: Visit Provider Internal Medicine
DX: E78.5 Hyperlipidemia, unspecified (principal); I11.9 Hypertensive heart disease without heart failure; I25.10 Atherosclerotic heart disease of native coronary artery without angina pectoris; I73.9 Peripheral vascular disease, unspecified; N18.2 Chronic kidney disease, stage 2 (mild); Z95.5 Presence of coronary angioplasty implant and graft; E78.2 Mixed hyperlipidemia; I65.23 Occlusion and stenosis of bilateral carotid arteries; R07.9 Chest pain, unspecified
CPT/HCPCS: 36415; 74178; 82565; 84520; Q9967

== ENCOUNTER → 2020-11-26 10:44 | Outpatient (CLI) | payer MEDICARE, SELFPAY | PROVIDERS: Visit Provider Internal Medicine Gastroenterology | DX: Z01.812 Encounter for preprocedural laboratory examination (principal); Z20.822 Contact with and (suspected) exposure to COVID-19; Z13.810 Encounter for screening for upper gastrointestinal disorder; Z12.11 Encounter for screening for malignant neoplasm of colon | CPT/HCPCS: U0003 ==

== ENCOUNTER 2020-11-28 10:34 | Day surgery (SDC) | payer MEDICARE, SELFPAY ==
[2020-11-25 14:49] VITALS: BMI 34.8
[2020-11-28 11:05] VITALS: BP 170/79; PULSE 59; RESP 18; TEMP 36.2; O2SAT 99
[2020-11-28 11:30] VITALS: O2SAT 98
--- NOTE | 2020-11-28 11:38 | HMH.ANESCL ---
[facility] Anesthesia Checklist - Patient Identification Patient Identification: Arm Band - Structural Data Admitted From: Home Planned Operative Procedure/s: egd/colonoscopy Consent for Planned Operative Procedure(s) Verified: Yes Verified Documents: Surgical Consent, History and Physical - NPO Status Verified Time NPO: 00:00 - Additional verifications Anesthesia Reactions: No - Airway Assessment C-Spine Mobility Assessed: Yes (mp2) TMJ Mobility Assessed: Yes Dentition: Good Dentition - Neurological Assessment Level of Consciousness: Awake, Alert - Anesthesia Plan Anesthesia Risk discussed: Yes Anesthesia Plan: Verified ASA Class: III Anesthesia Type: MAC [facility] History I have reviewed the patient's past medical history: Yes Medical History: Reports:: Anxiety, Carotid Stenosis, Coronary Artery Disease, Gastroesophageal Reflux Disease(GERD), Hyperlipidemia, Hypertension, Peripheral Artery Disease, Renal Disease Denies:: Cancer, Diabetes Mellitus Type 1, Diabetes Mellitus Type 2, Internal Pacemaker, MRSA, Seizures *Have you ever received a pneumonia vaccine?: No *Have you received a flu vaccine this season?: No Other Medical History: Reports: Arthritis Anesthesia experience/problems:: nac Other Surgeries: Yes: Angioplasty, Appendectomy, CABG, Cardiac Catheterization, Cholecystectomy, Colonoscopy, Coronary Stent, EGD, Hysterectomy-Total, Other. No: Pacemaker Amputation: No Fractures: No - *Social History Last grade of school completed: Some college Smoking Status: Never smoker Alcohol Intake: never Substance Use Type: denies use *Occupational Status:: employed Housing: house Household Members: none *Travel in the last 8 weeks: None - Psychiatric History Pschychiatric History:: Reports:: Anxiety Family Hx:: Cancer, Heart Attack, Hypertension, Stroke
--- NOTE | 2020-11-28 11:55 | HMH.PROC ---
[facility] Procedure Note Procedure Note:: Upper Endoscopy Procedure Report: Esophagogastroduodenoscopy with cold biopsies Endoscopost: Truong Culver II, MD Referring Physician: Santi Mehta MD/IRVING Trevino Date of Procedure: November 28, 2020 Equipment: Olympus GIF 190 standard upper endoscope Sedation: MAC sedation Indications: Mrs. Barrera is a 80-year-old female who is here for diagnostic upper endoscopy secondary to noncardiac chest pain (probable esophageal chest pain). She has had unstable angina with ME in July 2020. She did have a heart catheterization at that time and was found to have significant coronary disease and had for coronary stents placed. The patient more recently had chest pain between her shoulder blades. She had a repeat catheterization that showed patency of the coronaries. She has had moderate belching. She has had chronic long-term GERD for which she has taken Nexium. She recently switched over to omeprazole 40 mg by mouth daily. Her last EGD was 15 years ago. She reports no dysphagia or globus sensation. She reports no nausea or early satiety. She really has had no heartburn or reflux. She does have chronic constipation for which she takes a stool softener. She did have a recent CT scan of the abdomen on November 23, 2020. There was a moderate hiatal hernia. There was also heterogeneous wall thickening of the ascending colon. This was felt to be secondary to under distention. Procedure: Prior to the procedure, a history and physical exam was performed, and patient's medications and allergies were reviewed. The risks, benefits and alternatives of the sedation and procedure were discussed with the patient. All questions were answered and informed consent was obtained. The patient was brought to the procedure room. Patient identification and proposed procedure were verified by the physician and the nurse. The patient was placed in a left lateral decubitus position and the scope was passed under direct vision. Throughout the procedure, the patient's blood pressure, pulse, and oxygen saturations were monitored continuously. The upper GI endoscopy was accomplished without difficulty. The patient tolerated the procedure well. Findings: The scope was passed directly into the upper esophagus and advanced to the third portion of the duodenum. The post bulbar duodenum and duodenal bulb were normal with normal mucosa and conniventes. The scope was withdrawn through a normal duodenal bulb and pylorus into the stomach. There was bile reflux with mild linear reactive gastropathy of the antrum. The remainder of the body and fundus of the stomach were grossly normal. Upon retroflexion there was a 2-3 cm small to medium sized hiatal hernia. 2 biopsies were taken in the antrum and along the lesser curvature for histology to rule out gastritis and/or H pylori. The scope was then withdrawn into the esophagus. A polyp was identified in the fundus at the diaphragmatic hiatus removed via cold biopsy. There was no evidence of reflux esophagitis or Crawford's. There was a serrated Z-line and biopsies were taken at the gastroesophageal junction. There were some tertiary contractions and evidence of moderate esophageal dysmotility. The remainder of the esophageal mucosa was normal. Impression: 1. Nonerosive GERD with moderate esophageal dysmotility and 2 to 3 cm hiatal hernia 2. Bile reflux with mild linear reactive gastropathy 3. Gastric fundic polyp Plan: I will follow-up the biopsies. I do feel that the patient's chest pain is esophageal chest pain from esophageal dyskinesia. I do feel that this is secondary to gas pressure gradients from obstipation/colonic fermentation. We will discuss dietary measures and treatment options. I will proceed with colonoscopy.
--- NOTE | 2020-11-28 12:15 | HMH.PROC ---
[facility] Procedure Note Procedure Note:: Colonoscopy Procedure Report: Colonoscopy with cold snare polypectomy Endoscopist: Truong Culver II, MD Referring physician: Santi Mehta MD/IRVING Trevino Date of Procedure: November 28, 2020 Equipment: Olympus 190 variable stiffness pediatric colonoscope Sedation: MAC sedation Indication: Mrs. Barrera is a 80-year-old female who is here for diagnostic colonoscopy. The patient did have noncardiac chest pain and subsequently had a CT scan of the abdomen and pelvis. This did show heterogeneous wall thickening of the ascending colon and colonic diverticulosis. The patient has had chronic constipation for which she takes a stool softener with stimulant laxative. The patient does state that she was diagnosed with Crohn's disease by 4 different physicians and her last colonoscopy 15 years ago was normal showing no Crohn's disease. She has not been on any maintenance therapy.. She reports no rectal bleeding or abdominal pain. She does state that her maternal grandmother may have had colon cancer. Procedure: Prior to the procedure, a history and physical exam was performed, and patient's medications and allergies were reviewed. The risks, benefits and alternatives of the sedation and procedure were discussed with the patient. All questions were answered and informed consent was obtained. The patient was brought to the procedure room. Patient identification and proposed procedure were verified by the physician and the nurse. The patient was placed in a left lateral decubitus position and the scope was passed under direct vision. Throughout the procedure, the patient's blood pressure, pulse, and oxygen saturations were monitored continuously. The colonoscopy was accomplished without difficulty. The patient tolerated the procedure well. Findings: On digital rectal examination there was normal rectal tone. There were no external hemorrhoids. The colonoscope was introduced through the anal canal to the rectum and advanced to the cecum. The ileocecal valve and appendiceal orifice were identified. The scope was advanced a short distance into the ileum which appeared grossly normal. The scope was then withdrawn into the colon. There was moderate to marked melanosis coli throughout the colon. There were 2 polyps (2 and 4 mm) in the ascending colon removed via cold snare polypectomy. There were scattered diverticuli throughout the descending and sigmoid colon (LEFT colon). The rectum itself was normal. Upon retroflexion within the rectum there were grade 1-2 internal hemorrhoids. The preparation was excellent throughout with [place] Preparation Score of 9. The cecal time was 12 minutes. Impression: 1. Diminutive colonic polyps x2 2. Moderate to marked melanosis coli 3. Left-sided diverticulosis 4. Grade 1-2 internal hemorrhoids Plan: I will follow up the polyp histology. The patient will not require any further surveillance colonoscopy. I would encourage a fiber bowel regimen on a long-term daily maintenance basis. We will discuss dietary measures to follow.
[2020-11-28 12:17] VITALS: BP 123/58; PULSE 61; RESP 12; TEMP 36.3; O2SAT 92
[2020-11-28 12:27] VITALS: BP 119/57; PULSE 64; RESP 16; O2SAT 92
[2020-11-28 12:37] VITALS: BP 141/70; PULSE 62; RESP 16; O2SAT 95
[2020-11-28 12:47] VITALS: BP 169/70; PULSE 67; RESP 16; TEMP 36.3; O2SAT 95
== END 2020-11-28 12:50 | disposition home or self-care (01) ==
PROVIDERS: PCP Nurse Practitioner Family; Visit Provider Internal Medicine Gastroenterology
PROC: 0DJ08ZZ Inspection of Upper Intestinal Tract, Via Natural or Artificial Opening Endoscopic (ICD-10-PCS; CPT 43235; principal; 2020-11-28 12:30)
DX: K21.9 Gastro-esophageal reflux disease without esophagitis; K22.4 Dyskinesia of esophagus; K44.9 Diaphragmatic hernia without obstruction or gangrene; K31.9 Disease of stomach and duodenum, unspecified; K31.7 Polyp of stomach and duodenum; K63.5 Polyp of colon; K57.30 Diverticulosis of large intestine without perforation or abscess without bleeding; K64.0 First degree hemorrhoids; K63.89 Other specified diseases of intestine; Z95.1 Presence of aortocoronary bypass graft; Z95.5 Presence of coronary angioplasty implant and graft; Z90.49 Acquired absence of other specified parts of digestive tract
CPT/HCPCS: 43239; 45385; 88305

== ENCOUNTER → 2021-03-15 12:52 | Outpatient (CLI) | payer MEDICARE, SELFPAY ==
[2021-03-15 14:16] LABS: Barbiturates Screen,Urine Negative ng/ml (<200)
[2021-03-15 14:17] LABS: Benzodiazepines Screen,Urine Positive ng/ml (<200)
[2021-03-15 14:18] LABS: Amphetamine/Metha Screen,Urine Negative ng/ml (<1000); Cannabinoid Screen,Urine Negative ng/ml (<50)
[2021-03-15 14:19] LABS: Cocaine Screen,Urine Negative ng/ml (<300); Methadone Screen,Urine Negative ng/ml (<300)
[2021-03-15 14:20] LABS: Opiate Screen,Urine Negative ng/ml (<300)
[2021-03-15 14:21] LABS: Phencyclidine Screen,Urine Negative ng/ml (<25)
== END ==
PROVIDERS: Visit Provider Internal Medicine
DX: Z79.899 Other long term (current) drug therapy (principal)
CPT/HCPCS: 80305

== ENCOUNTER 2022-11-12 14:18 | Observation (INO) | payer MEDICARE, SELFPAY ==
[2022-11-12] VITALS (10 sets, daily range): BP systolic 112–216; BP diastolic 50–92; PULSE 58–71; RESP 14–18; TEMP 36.5–36.7; O2SAT 97–99; BMI 35.0; BMI 34.8
--- NOTE | 2022-11-12 14:17 | ECG_ITS ---
APPROVED REPORT Exam: Resting ECG HR:60 bpm ECG Measurements Heart Rate 60 AXES ND 177 P 62 QRSd 95 QRS 61 QT 415 T 79 QTc 416 Conclusion SINUS RHYTHM POSSIBLE RIGHT VENTRICULAR CONDUCTION DELAY [RSR (QR) IN V1/V2] BORDERLINE ECG UNCONFIRMED REPORT Electronically signed by : King Lange MD 11/13/2022 20:20:22
--- NOTE | 2022-11-12 14:22 | XR_ITS ---
FINAL REPORT CLINICAL HISTORY: chest pain FINDINGS: The heart size is normal. There are multiple sternotomy wires. The mediastinum is within normal limits. There is no acute cardiopulmonary process. There is no pleural effusion. There is no pneumothorax. The bony thorax is intact. IMPRESSION: No acute cardiopulmonary process. Reviewed, Interpreted and Dictated by Yoan Bazan MD Transcribed by Macario Dee Authenticated and [facility]
--- NOTE | 2022-11-12 14:31 | PC.NURSE ---
DR DAVIDSON SPEAKING WITH CARDIOLOGY
--- NOTE | 2022-11-12 14:33 | PC.NURSE ---
DR DAVIDSON AT BEDSIDE
--- NOTE | 2022-11-12 14:36 | PC.NURSE ---
XR AT BEDSIDE
--- NOTE | 2022-11-12 14:37 | PC.NURSE ---
Smita Alexander APRN with Cardiology at [facility]
--- NOTE | 2022-11-12 14:38 | PC.NURSE ---
CARDIOLOGY AT BEDSIDE
--- NOTE | 2022-11-12 14:43 | HMH.EDCP ---
Discharge Plan Disposition Chief Complaint: Chest Pain Prescriptions Prescriptions: No Action diltiazem HCl 240 mg capsule,extended release 24hr See Rx Instructions .ROUTE .COMPLEX Qty: 90 2RF Dose Instruction: TAKE 1 CAPSULE BY MOUTH EVERY DAY Rx Instructions: TAKE 1 CAPSULE BY MOUTH EVERY DAY hydrocodone-chlorpheniramine 10-8 mg/5 mL suspension,extended rel 12 hr 5 ml PO Q12H PRN (Reason: cough) Qty: 118 0RF aspirin [Aspir-81] 81 mg tablet,delayed release (DR/EC) 81 mg PO DAILY doxazosin 2 mg tablet See Rx Instructions .ROUTE .COMPLEX Qty: 180 1RF Dose Instruction: TAKE 1 TAB BY MOUTH 2 TIMES DAILY Rx Instructions: TAKE 1 TAB BY MOUTH 2 TIMES DAILY clopidogrel 75 mg tablet See Rx Instructions .ROUTE .COMPLEX Qty: 90 3RF Dose Instruction: TAKE 1 TABLET BY MOUTH EVERY DAY FOR CORONARY ARTERY DISEASE Rx Instructions: TAKE 1 TABLET BY MOUTH EVERY DAY FOR CORONARY ARTERY DISEASE isosorbide mononitrate 60 mg tablet extended release 24 hr See Rx Instructions .ROUTE .COMPLEX Qty: 90 1RF Dose Instruction: TAKE 1 TABLET BY MOUTH EVERY DAY Rx Instructions: TAKE 1 TABLET BY MOUTH EVERY DAY carvedilol 12.5 mg tablet See Rx Instructions .ROUTE .COMPLEX Qty: 180 1RF Dose Instruction: TAKE 1 TABLET BY MOUTH TWICE A DAY MUST ADMINISTER WITH A MEAL/FOOD Rx Instructions: TAKE 1 TABLET BY MOUTH TWICE A DAY MUST ADMINISTER WITH A MEAL/FOOD famotidine 40 MG tablet 40 mg PO DAILY Referrals Follow up/Referrals: Celena Villar APRN [Primary Care Provider] - See instructions Discharge ED Provider: Zac Snowden Chest Pain HPI General Chief Complaint: Chest Pain Stated Complaint: CP Time Seen by Provider: 11/12/22 14:32 Mode of Arrival: Ambulatory Source of Information: Patient Limitations: No Limitations Description of Symptoms (Recalled from ER Triage Doc. by RN): PT REPORTS CHEST PAIN THAT STARTED THIS AM, WENT TO WORK, PAIN CONTINUED WITH NAUSEA. PT REPORTS PAIN RADIATE TO LEFT SHOULDER AND JAW. OCCASIONAL SHORTNESS OF BREATH History of Present Illness HPI narrative: Patient presents complaint of chest pain that started this morning. She states he is currently pain-free. The pain was rating her shoulder and jaw she notes associated shortness of air. She does have a known history of coronary artery disease and has had bypass grafting as well as stents. She actually discussed her care with her chimney repairer prior to coming to the ED and was referred here for further evaluation definitive management. Pain is worse with exertion. Related Data Home Medications Medication Instructions Recorded Confirmed aspirin 81 mg tablet,delayed 81 mg PO DAILY HEART HEALTH 08/12/17 10/24/22 release (Aspir-) famotidine 40 mg tablet 40 mg PO DAILY GERD 11/25/20 10/24/22 Previous Rx's Medication Instructions Recorded doxazosin 2 mg tablet See Rx Instructions .Route 12/08/20 .COMPLEX #180 tabs clopidogrel 75 mg tablet See Rx Instructions .Route 01/09/21 .COMPLEX #90 tabs carvedilol 12.5 mg tablet See Rx Instructions .Route 01/10/21 .COMPLEX #180 tabs isosorbide mononitrate 60 mg See Rx Instructions .Route 01/10/21 tablet,extended release 24 hr .COMPLEX #90 tabs diltiazem HCl 240 mg See Rx Instructions .Route 10/24/22 capsule,extended release 24 hr .COMPLEX #90 caps hydrocodone 10 mg-chlorpheniramine 5 ml PO Q12H PRN cough #118 mL 10/24/22 8 mg/5 mL oral susp extend.rel 12hr Allergies Allergy/AdvReac Type Severity Reaction Status Date / Time JOSE Inhibitors Allergy Unknown Verified 10/24/22 11:33 allergy reaction ARB-Angiotensin Receptor Allergy Unknown Verified 10/24/22 11:33 Antagonist allergy reaction doxycycline Allergy Unknown Verified 10/24/22 11:33 allergy reaction Fish Containing Products Allergy Unknown Verified 10/24/22 11:33 allergy reaction nitrofurantoin Allergy
--- NOTE | 2022-11-12 14:46 | PC.NURSE ---
CARE MANAGEMENT NOTIFIED OF ADMISSION
--- NOTE | 2022-11-12 14:46 | PC.NURSE ---
DR DAVIDSON SPEAKING WITH HOSPITALIST FOR ADMISSION
--- NOTE | 2022-11-12 14:49 | EXP.CARD.CON ---
History of Present Illness History of Present Illness Consult date: 11/12/22 Requesting physician: Zac Snowden Consult reason: chest pain Chief complaint: chest pain History of present illness: This is an 82-year-old white female who presented to the emergency department complaints of chest pain. The patient states that she has been waking up at night with a little pressure in her chest and her closed drenched with sweat. She states that today she went to work and then had sudden onset of chest pressure and heaviness. She states that this is in the central aspect of her chest. It radiates to her bilateral arms neck jaw and back. She states that this is an 8 out of 10 in intensity. It is associated with shortness of breath, nausea and diaphoresis. She states that this lasted for about 10 to 15 minutes and then resolves. She states that the pain has been coming and going all day and she has just not felt well. She is extremely fatigued and tired. The patient has a systolic blood pressure of 216 mmHg on admission. She states that her blood pressure has been under really good control prior to today. She denies any fever, chills, vomiting, diarrhea, PND or orthopnea. She denies any lower extremity edema. The patient does have known coronary artery disease hypertension, hyperlipidemia, PAD and is status post coronary artery stent placement. [facility] Disclaimer: The information contained in this section may have been updated after the patient was seen, as this information can be updated by other users. 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 caffeine: Yes Review of Systems Review of Systems Review of systems:: pertinent systems reviewed and negative unless documented below Constitutional Constitutional: Reports system reviewed and no additional complaints, except as documented, Reports excessive sweating, Reports fatigue, Reports lethargy and Reports night sweats Eyes Eyes: Reports system reviewed and no additional complaints, except as documented ENT Ears, Nose, Mouth, and Throat: Reports system reviewed and no additional complaints, except as documented *Cardiovascular Cardiovascular: Reports system reviewed and no additional complaints, except as documented, Reports as per HPI, Reports chest pain, Reports chest pain at rest, Reports diaphoresis, Reports dyspnea, Reports dyspnea on exertion and Reports radiating jaw, neck or arm pain *Respiratory Respiratory: Reports system reviewed and no additional complaints, except as documented, Reports dyspnea and Reports dyspnea on exertion *Gastrointestinal Gastrointestinal: Reports system reviewed and no additional complaints, except as documented and Reports nausea *Musculoskeletal Musculoskeletal: Reports system reviewed and no additional complaints, except as documented Integumentary/Breasts Skin/Breast: Reports system reviewed and no additional complaints, except as documented *Neurologic Neurologic: Reports system reviewed and no additional complaints, except as documented Psychiatric Psychiatric: Reports system reviewed and no additional complaints, except as documented Endocrine Endocrine: Reports system reviewed and no additional complaints, except as documented, Reports excessive sweating and Repor
[2022-11-12 14:56] LABS: Coronavirus 19, PCR Not Detected (NotDetected); Influenza A, PCR Not Detected (NotDetected); Influenza B, PCR Not Detected (NotDetected)
[2022-11-12 14:57] LABS: Basophils % 0.3 % (0.1-2.0); Eosinophils # 0.2 K/mm3 (0.0-0.4); Eosinophils % 2.6 % (0.1-12.0); Hematocrit 40.7 % (37.0-47.0); Hemoglobin 13.4 g/dL (12.2-16.2); Lymphocytes # 2.8 K/mm3 (0.7-4.5); Lymphocytes % 35.9 % (10-50); Mean Corpuscular HGB Conc 32.9 g/dL (31.8-35.4); Mean Corpuscular Hemoglobin 31.3 pg (27.0-31.2); Mean Corpuscular Volume 95.2 fl (81-99); Mean Platelet Volume 7.6 fl (7.4-10.4); Monocytes # 0.6 K/mm3 (0.1-1.0); Monocytes % 7.1 % (1.7-9.3); Neutrophils # 4.2 K/mm3 (1.8-7.8); Neutrophils % 54.1 % (37.0-80.0); Platelet Count 317 K/mm3 (142-424); Red Blood Count 4.27 M/mm3 (4.20-5.40); White Blood Count 7.8 K/mm3 (4.8-10.8)
--- NOTE | 2022-11-12 14:58 | US_ITS ---
FINAL REPORT CLINICAL HISTORY: malignant htn FINDINGS: RENAL ULTRASOUND Ultrasound images of the kidneys were obtained. The right kidney measures 9.6 cm in length. It is normal echogenicity. There is no hydronephrosis. The left kidney measures 9.6 cm in length. It is normal echogenicity. There is no hydronephrosis. IMPRESSION: Normal renal ultrasound. Reviewed, Interpreted and Dictated by Yoan Bazan MD Transcribed by Felipa Paiz Authenticated and . [facility]
[2022-11-12 15:02] LABS: Chloride 91 mmol/L (98-107); Potassium 4.2 mmoL/L (3.5-5.1); Sodium 131 mmol/L (136-145)
--- NOTE | 2022-11-12 15:03 | PC.NURSE ---
REPORT GIVEN TO SUSY POWELL
--- NOTE | 2022-11-12 15:04 | HMH.PHAINT1 ---
Pharmacy Intervention Comments: MEDICATION RECONCILIATION COMPLETED ON PATIENT USING EXTERNAL FILL HISTORY FROM PHARMACY AND LIST FROM CARDIOLOGY OFFICE. -AUGUST SAVAGE, VICTORIAD
[2022-11-12 15:05] LABS: Anion Gap 17.2 mEq/L (5-15); Blood Urea Nitrogen 24 mg/dl (7-17); Calcium 9.2 mg/dl (8.4-10.2); Carbon Dioxide 27 mmol/L (22.0-30.0); Creatinine Clearance Estimated 60 mL/min (50-200); Estimated Glomerular Filt Rate 48 ml/min (>60); GFR (African American) 58 ML/MIN (>60); Glucose 107 mg/dl (74-100)
[2022-11-12 15:22] LABS: Troponin I < 0.01 ng/ml (0.00-0.034)
--- NOTE | 2022-11-12 15:41 | PC.NURSE ---
pt to 2nd floor via stretcher
--- NOTE | 2022-11-12 15:44 | PC.NURSE ---
arrived to floor by stretcher from ED
--- NOTE | 2022-11-12 17:01 | EXP.HP ---
History of Present Illness *Admission Date: 11/12/22 *Reason for visit:: Chief complaint: Chest pain *History of present illness: This is an 82-year-old female who presents to [facility] emergency department with concerns of chest pain. She reports her chest pain is a heaviness to her mid chest and radiating to her shoulders and jaw. She rates the pain as greater than 7 on a 1-10 pain scale. She reports associated shortness of air made worse with exertion. She reports that by the time she arrived to the ED her chest pain had subsided. Her past medical history is significant for coronary artery disease with previous intervention. In the ED her initial troponin is negative and her EKG identifies sinus bradycardia with no acute ST-T changes. She is admitted for cardiology consultation with her significant risk factors. [facility] Disclaimer: The information contained in this section may have been updated after the patient was seen, as this information can be updated by other users. 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 caffeine: Yes Review of Systems Review of Systems Review of systems:: pertinent systems reviewed and negative unless documented below *Cardiovascular Cardiovascular: Reports chest pain, Reports chest pain at rest, Reports chest pain with activity and Reports dyspnea *Respiratory Respiratory: Reports dyspnea *Neurologic Neurologic: Reports system reviewed and no additional complaints, except as documented Meds Home Medications and Allergies Home Medications Medication Instructions Recorded Confirmed Type famotidine 40 mg tablet 40 mg PO DAILY Acid reflux 11/25/20 11/12/22 History aspirin 81 mg tablet,delayed 81 mg PO DAILY HEART HEALTH 11/12/22 11/12/22 History release carvedilol 12.5 mg tablet 12.5 mg PO BID Hypertension 11/12/22 11/12/22 History clopidogrel 75 mg tablet 75 mg PO DAILY PLATELET INHIBITOR 11/12/22 11/12/22 History diltiazem HCl 240 mg 240 mg PO DAILY HEART RATE 11/12/22 11/12/22 History capsule,extended release 24 hr doxazosin 2 mg tablet 2 mg PO BID Hypertension 11/12/22 11/12/22 History hydrocodone 10 mg-chlorpheniramine 5 ml PO Q12HP PRN cough 11/12/22 11/12/22 History 8 mg/5 mL oral susp extend.rel 12hr isosorbide mononitrate 60 mg 60 mg PO DAILY Hypertension 11/12/22 11/12/22 History tablet,extended release 24 hr New Prescriptions to Start Prescriptions: Allergies Allergy/AdvReac Type Severity Reaction Status Date / Time JOSE Inhibitors Allergy Unknown Verified 10/24/22 11:33 allergy reaction ARB-Angiotensin Receptor Allergy Unknown Verified 10/24/22 11:33 Antagonist allergy reaction doxycycline Allergy Unknown Verified 10/24/22 11:33 allergy reaction Fish Containing Products Allergy Unknown Verified 10/24/22 11:33 allergy reaction nitrofurantoin Allergy Unknown Verified 10/24/22 11:33 [From Macrodantin] allergy reaction Penicillins Allergy Unknown Verified 10/24/22 11:33 allergy reaction shellfish derived Allergy Unknown Verified 10/24/22 11:33 allergy reaction [id number] Reductase Allergy Unknown Verified 10/24/22 11:33 Inhibitor allergy [[id number]-Xjg Red
[2022-11-12 18:00] LABS: Troponin I < 0.01 ng/ml (0.00-0.034)
--- NOTE | 2022-11-12 18:32 | PC.NURSE ---
Nitro gtt titrated from 5 mcg/min to 10 mcg/min and then to 20 mcg/min and is currently infusing at this rate. Pt c/o COOK. Medicated per sep. No CP at this time. Has ambulated to BR and tolerated well. Call light within reach.
--- NOTE | 2022-11-12 20:05 | PC.NURSE ---
Pt c/o feeling of chest pressure 4/10 on assessment, Nitro gtt titrated to 30mcg/min
[2022-11-12 21:07] LABS: Troponin I < 0.01 ng/ml (0.00-0.034)
--- NOTE | 2022-11-12 21:40 | PC.NURSE ---
Pt having episodes of apnea while asleep dropping to lower 80s. 2 L nc placed on pt at this time.
--- NOTE | 2022-11-12 22:15 | PC.NURSE ---
Pt BP dropped to 112/50, pt resting comfortably in bed, nitro gtt titrated down to 20mcg/min
[2022-11-13] VITALS (27 sets, daily range): BP systolic 126–168; BP diastolic 41–80; PULSE 50–72; RESP 15–20; TEMP 36.4–36.7; O2SAT 95–99; BMI 34.8
--- NOTE | 2022-11-13 06:18 | PC.NURSE ---
Nitro gtt continues at 20mcg/min. Pt has not voiced any c/o to staff t/o shift. Ambulating to BR with standby assist. NPO since midnight. Call light within reach.
[2022-11-13 06:50] LABS: Basophils % 0.5 % (0.1-2.0); Eosinophils # 0.2 K/mm3 (0.0-0.4); Eosinophils % 3.4 % (0.1-12.0); Hematocrit 38.8 % (37.0-47.0); Hemoglobin 12.7 g/dL (12.2-16.2); Lymphocytes # 2.1 K/mm3 (0.7-4.5); Lymphocytes % 39.4 % (10-50); Mean Corpuscular HGB Conc 32.7 g/dL (31.8-35.4); Mean Corpuscular Hemoglobin 31.2 pg (27.0-31.2); Mean Corpuscular Volume 95.3 fl (81-99); Mean Platelet Volume 7.6 fl (7.4-10.4); Monocytes # 0.4 K/mm3 (0.1-1.0); Neutrophils # 2.6 K/mm3 (1.8-7.8); Neutrophils % 49.8 % (37.0-80.0); Platelet Count 285 K/mm3 (142-424); Red Blood Count 4.07 M/mm3 (4.20-5.40); Red Cell Distribution Width 13.2 % (11.5-17.5); White Blood Count 5.3 K/mm3 (4.8-10.8)
--- NOTE | 2022-11-13 07:00 | CA_ITS ---
FINAL REPORT CLINICAL HISTORY: malignant htn FINDINGS: DOPPLER RENAL VESSELS Intrarenal resistive indices on the right are 0.70, normal . Intrarenal resistive indices on the left are 0.73, normal . Right main renal artery systolic velocity: 103 cm/sec. Aortic-right renal artery flow velocity ratio: 1.1 COMMENT: No evidence of hemodynamically significant renal artery stenosis . Left main renal artery systolic velocity: 100 cm/sec. Aortic-left renal artery flow velocity ratio: 1.1 COMMENT: No evidence of hemodynamically significant renal artery stenosis . CONCLUSION: No evidence of hemodynamically significant renal artery stenosis CTA or gadolinium-enhanced MR may be considered as a more sensitive exam. Alternatively noncontrast MRI may be considered for assessing main renal arteries for stenosis as a more sensitive exam if the patient has renal insufficiency. Reviewed, Interpreted and Dictated by Yoan Bazan MD Transcribed by Felipa Paiz Authenticated and [facility]
--- NOTE | 2022-11-13 07:00 | CA_ITS ---
FINAL REPORT TECHNIQUE: Color Doppler, duplex Doppler and starkey scale sonography of the bilateral neck arterial vasculature was performed. Velocities were measured in the carotid arteries. Stenosis evaluation based on the validated velocity criteria. CLINICAL HISTORY: bilateral carotid bruits FINDINGS: The peak systolic velocity of the right common carotid artery is 49 cm/s. The peak systolic velocity of the right internal carotid artery is 202 cm/s and end diastolic velocity 40 cm/s. A moderate amount of plaque is present at the bifurcation. The right external carotid artery is patent. The right vertebral artery is patent with antegrade flow. The peak systolic velocity of the left common carotid artery is 115 cm/s. The peak systolic velocity of the left internal carotid artery is 101 cm/s and end diastolic velocity 23 cm/s. A small amount of plaque is present. The left external carotid artery is patent.The left vertebral artery is patent with antegrade flow. IMPRESSION: 50-69% right carotid artery stenosis. Less than 50% left carotid artery stenosis. Bilateral patent vertebral arteries with antegrade flow. If indicated, CTA or MRA could further evaluate. Reviewed, Interpreted and Dictated by Yoan Bazan MD Transcribed by Felipa Paiz Authenticated and [facility]
[2022-11-13 07:06] LABS: Chloride 96 mmol/L (98-107); Potassium 4.1 mmoL/L (3.5-5.1); Sodium 135 mmol/L (136-145)
[2022-11-13 07:08] LABS: Alanine Aminotransferase 17 U/L (12-78); Anion Gap 15.1 mEq/L (5-15); Aspartate Amino Transferase 23 U/L (14-36); Bilirubin,Unconjugated 0.5 mg/dL (0.0-1.1); Blood Urea Nitrogen 20 mg/dl (7-17); Carbon Dioxide 28 mmol/L (22.0-30.0); Creatinine Clearance Estimated 60 mL/min (50-200); Estimated Glomerular Filt Rate 48 ml/min (>60); GFR (African American) 58 ML/MIN (>60)
[2022-11-13 07:09] LABS: Alkaline Phosphatase 61 U/L (38-126); Bilirubin,Indirect 0.6 mg/dL (0.0-0.9); Bilirubin,Total 0.6 mg/dl (0.2-1.3); Calcium 9.1 mg/dl (8.4-10.2); Chol/HDL Ratio 6.7 (1-3.5); Cholesterol 236 mg/dl (140-200); Glucose 112 mg/dl (74-100); HDL Cholesterol 35 mg/dl (40-60); Total Protein,Serum 6.4 g/dl (6.3-8.2); Triglycerides 213 mg/dl (30-150); VLDL Cholesterol 43 mg/dL (0-40)
[2022-11-13 07:20] LABS: Direct LDL Cholesterol 142.03 mg/dL (100-129)
[2022-11-13 08:39] LABS: Magnesium 1.9 mg/dl (1.6-2.3)
--- NOTE | 2022-11-13 10:14 | EXP.CARD.PN ---
Subjective Subjective Date: 11/13/22 Time: 09:00 Principal diagnosis: unstable angina Interval history: This is an 82-year-old white female who presented to the emergency department yesterday with complaints of chest pain. She was found to have unstable angina and started on a nitroglycerin drip. She reports that her chest pain has improved since being on the nitroglycerin drip but she is still having intermittent sharp pain in the left side of her chest and going under her left armpit. She states that this has improved. She does have a headache from the nitroglycerin drip. She denies any shortness of breath or edema this morning. She denies any fever, chills, nausea, vomiting, diarrhea, PND or orthopnea. The patient is scheduled undergo a left cardiac catheterization today to evaluate her coronary artery disease. Exam Data for Last 24 hours Vital signs and Labs for Last 24 Hours: Temp Pulse Resp BP Pulse Ox 97.8 F 54 L 15 143/46 H 97 11/13/22 08:00 11/13/22 06:00 11/13/22 06:00 11/13/22 06:00 11/13/22 06:00 Laboratory Results - last 24 hr 11/12/22 14:20: Sodium 131 L, Potassium 4.2, Chloride 91 L, Carbon Dioxide 27, Anion Gap 17.2 H, BUN 24 H, Creatinine 1.10 H, Estimated Creat Clear 60, Estimated GFR 48 L, Est GFR ( Amer) 58 L, Glucose 107 H, Calcium 9.2, Troponin I < 0.01 11/12/22 14:22: WBC 7.8, RBC 4.27, Hgb 13.4, Hct 40.7, MCV 95.2, MCH 31.3 H, MCHC 32.9, RDW 13.0, Plt Count 317, MPV 7.6, Neut % (Auto) 54.1, Lymph % (Auto) 35.9, Duval % (Auto) 7.1, Eos % (Auto) 2.6, Baso % (Auto) 0.3, Neut # (Auto) 4.2, Lymph # (Auto) 2.8, Duval # (Auto) 0.6, Eos # (Auto) 0.2, Baso # (Auto) 0.0 11/12/22 14:44: SARS-CoV-2 (PCR) Not detected, Influenza A Untype (PCR) Not detected, Influenza Type B (PCR) Not detected 11/12/22 17:30: Troponin I < 0.01 11/12/22 20:30: Troponin I < 0.01 11/13/22 06:28: WBC 5.3 D, RBC 4.07 L, Hgb 12.7, Hct 38.8, MCV 95.3, MCH 31.2, MCHC 32.7, RDW 13.2, Plt Count 285, MPV 7.6, Neut % (Auto) 49.8, Lymph % (Auto) 39.4, Duval % (Auto) 7.0, Eos % (Auto) 3.4, Baso % (Auto) 0.5, Neut # (Auto) 2.6, Lymph # (Auto) 2.1, Duval # (Auto) 0.4, Eos # (Auto) 0.2, Baso # (Auto) 0.0 11/13/22 06:28: Sodium 135 L, Potassium 4.1, Chloride 96 L, Carbon Dioxide 28, Anion Gap 15.1 H, BUN 20 H, Creatinine 1.10 H, Estimated Creat Clear 60, Estimated GFR 48 L, Est GFR ( Amer) 58 L, Glucose 112 H, Calcium 9.1, Total Bilirubin 0.6, Direct Bilirubin 0.0, Conjugated Bilirubin 0.0, Indirect Bilirubin 0.6, Unconjugated Bilirubin 0.5, AST 23, ALT 17, Alkaline Phosphatase 61, Total Protein 6.4, Albumin 4.0, Triglycerides 213 H, Cholesterol 236 H, LDL Cholesterol Direct 142.03 H, VLDL Cholesterol 43 H, HDL Cholesterol 35 L, Cholesterol/HDL Ratio 6.7 H 11/13/22 06:28: Magnesium 1.9 I & O for Last 24 hours: Intake & Output 11/10/22 11/11/22 11/12/22 11/13/22 23:59 23:59 23:59 23:59 Intake Total 249 / 249 Output Total 150 / 150 150 / 150 Balance 99 / -150 / -150 Weight 203 lb 1.6 oz 204 lb 2.369 oz Narrative: EKG is sinus rhythm with old inferior OH pattern and a rate of 60 bpm. Constitutional Constitutional: no acute distress and obese *Routine HEENT Exam Head: Present normocephalic and atraumatic ENT: Present mucous membranes moist *Routine Neck Exam Neck: Present supple, full ROM, carotid bruit (bilateral) and normal carotid upstroke; Absent JVD or lymphadenopathy *Routine Respiratory Exam Respiratory: Present CTA bilaterally, normal respiratory effort, able to speak in complete sentences and symmetric chest movement *Routine Cardiovascular Exam Cardiovascular: Present RRR, Normal S1 and Normal S2; Absent murmur or gallop *Routine Abdominal Exam Abdominal: Present soft and normoactive bowel sounds; Absent tenderness, distended or organomegaly *Routine Extremities Exam Extremities: Present full ROM, pulses intact and normal capillary refill; Absent cyanosis, clubbing or edema *Routine Skin Exam Skin: Present intact and
--- NOTE | 2022-11-13 13:20 | PC.NURSE ---
Pt down to Second Facing B[place].
--- NOTE | 2022-11-13 16:40 | EXP.ACUTE.PN ---
Subjective *Date: 11/13/22 *Time: 16:40 Interval history: Minimal chest pain on exam this morning, responded well to nitroglycerin drip. N.p.o. at this time pending left heart cath. Stable on room air. No nausea or vomiting. Denies headache or shortness of breath Medical Exam Vital signs and Labs for Last 24 Hours: Vital Signs Temp Pulse Pulse Resp BP BP BP 11/13/22 15:15 55 L 16 145/54 H 11/13/22 15:00 60 20 163/60 H 11/13/22 14:45 59 L 20 142/56 H 11/13/22 14:30 97.7 F 61 18 145/59 H 11/13/22 12:00 50 L 11/13/22 08:00 60 11/13/22 14:07 56 L 56 L 20 163/56 H 11/13/22 13:58 165/80 H 11/13/22 12:00 58 L 16 136/59 L 11/13/22 11:22 97.8 F 11/13/22 10:00 59 L 19 155/60 H 11/13/22 08:00 63 20 163/62 H 11/13/22 08:00 97.8 F 11/13/22 06:00 54 L 15 143/46 H 11/13/22 05:24 60 11/13/22 04:00 97.7 F 11/13/22 04:00 67 17 126/41 L 11/13/22 03:18 11/13/22 02:00 64 16 133/64 11/12/22 20:00 70 11/13/22 00:00 60 11/12/22 22:15 112/50 L 11/13/22 00:00 64 18 148/69 H 11/13/22 00:00 97.5 F L 11/12/22 22:00 62 14 152/56 H 11/12/22 20:00 98.1 F 11/12/22 20:00 11/12/22 20:00 71 15 149/63 H 11/12/22 18:00 69 16 175/84 H 11/12/22 17:00 67 16 154/76 H Pulse Ox 11/13/22 15:15 97 11/13/22 15:00 96 11/13/22 14:45 97 11/13/22 14:30 97 05/02/23 12:00 11/13/22 08:00 11/13/22 14:07 99 11/13/22 13:58 11/13/22 12:00 99 11/13/22 11:22 11/13/22 10:00 97 11/13/22 08:00 99 11/13/22 08:00 11/13/22 06:00 97 11/13/22 05:24 11/13/22 04:00 11/13/22 04:00 98 11/13/22 03:18 97 11/13/22 02:00 96 11/12/22 20:00 11/13/22 00:00 11/12/22 22:15 11/13/22 00:00 98 11/13/22 00:00 11/12/22 22:00 99 11/12/22 20:00 11/12/22 20:00 98 11/12/22 20:00 97 11/12/22 18:00 97 11/12/22 17:00 98 Intake and Output 11/13/22 11/13/22 11/13/22 07:59 15:59 23:59 Intake Total 104 / 104 Output Total 150 / 150 0 / 150 Balance -150 / -46 104 / -46 Intake: Intake, Total IV Amount 104 / 104 Nitroglycerin in 5 % Dextrose 104 / 104 250 ml @ 5 MCG/MIN 1.5 mls/hr IV .Q24H [facility] Rx#:[id number] Output: Output, Urine Amount 150 / 150 0 / 150 Other: Number of Unmeasured Voids 1 1 Number of Bowel Movements 1 Weight 92.6 kg Patient Weight 11/13/22 23:59 Weight 92.6 kg Laboratory Results - last 24 hr 11/12/22 17:30: Troponin I < 0.01 11/12/22 20:30: Troponin I < 0.01 11/13/22 06:28: WBC 5.3 D, RBC 4.07 L, Hgb 12.7, Hct 38.8, MCV 95.3, MCH 31.2, MCHC 32.7, RDW 13.2, Plt Count 285, MPV 7.6, Neut % (Auto) 49.8, Lymph % (Auto) 39.4, Maries % (Auto) 7.0, Eos % (Auto) 3.4, Baso % (Auto) 0.5, Neut # (Auto) 2.6, Lymph # (Auto) 2.1, Maries # (Auto) 0.4, Eos # (Auto) 0.2, Baso # (Auto) 0.0 11/13/22 06:28: Sodium 135 L, Potassium 4.1, Chloride 96 L, Carbon Dioxide 28, Anion Gap 15.1 H, BUN 20 H, Creatinine 1.10 H, Estimated Creat Clear 60, Estimated GFR 48 L, Est GFR ( Amer) 58 L, Glucose 112 H, Calcium 9.1, Total Bilirubin 0.6, Direct Bilirubin 0.0, Conjugated Bilirubin 0.0, Indirect Bilirubin 0.6, Unconjugated Bilirubin 0.5, AST 23, ALT 17, Alkaline Phosphatase 61, Total Protein 6.4, Albumin 4.0, Triglycerides 213 H, Cholesterol 236 H, LDL Cholesterol Direct 142.03 H, VLDL Cholesterol 43 H, HDL Cholesterol 35 L, Cholesterol/HDL Ratio 6.7 H 11/13/22 06:28: Magnesium 1.9 I & O for Labs for Last 24 Hours: Intake & Output 11/10/22 11/11/22 11/12/22 11/13/22 23:59 23:59 23:59 23:59 Intake Total 249 / 249 104 / 104 Output Total 150 / 150 150 / 150 Balance 99 / -46 / -46 Weight 92.125 kg 92.6 kg Constitutional: Present no acute distress and obese Head: Present atraumatic and normocephalic ENT: Present normal exam Respi
--- NOTE | 2022-11-13 18:04 | PC.NURSE ---
Pt is currently up to chair. Has tolerated ambulation to BR. Femoral cath site with DSG C/D/I. No hematoma noted. VS currently stable. Call light within reach.
[2022-11-14] VITALS: BP 138/59; PULSE 70; PULSE 75; RESP 16; TEMP 36.8; O2SAT 90
--- NOTE | 2022-11-14 01:30 | PC.NURSE ---
pt ambulated to bathroom with standby assist. voiding w/o difficulty. pt tolerated well. no c/o pain. right femoral cath site dressing c/d/i.
[2022-11-14 04:00] VITALS: BP 150/69; PULSE 66; PULSE 70; RESP 16; TEMP 36.7; O2SAT 95; BMI 34.2
--- NOTE | 2022-11-14 04:03 | PC.NURSE ---
pt has rested well. no c/o chest pain. VSS. NSR on telemetry. right femoral cath site dressing c/d/i.
[2022-11-14 06:01] LABS: Basophils % 0.1 % (0.1-2.0); Eosinophils % 0.4 % (0.1-12.0); Hematocrit 41.3 % (37.0-47.0); Hemoglobin 13.5 g/dL (12.2-16.2); Lymphocytes # 1.2 K/mm3 (0.7-4.5); Lymphocytes % 17.9 % (10-50); Mean Corpuscular HGB Conc 32.7 g/dL (31.8-35.4); Mean Corpuscular Hemoglobin 31.4 pg (27.0-31.2); Mean Corpuscular Volume 95.9 fl (81-99); Mean Platelet Volume 7.5 fl (7.4-10.4); Monocytes # 0.1 K/mm3 (0.1-1.0); Monocytes % 1.9 % (1.7-9.3); Neutrophils # 5.4 K/mm3 (1.8-7.8); Neutrophils % 79.7 % (37.0-80.0); Platelet Count 307 K/mm3 (142-424); Red Cell Distribution Width 13.3 % (11.5-17.5); White Blood Count 6.8 K/mm3 (4.8-10.8)
[2022-11-14 06:03] LABS: Chloride 98 mmol/L (98-107)
[2022-11-14 06:04] LABS: Potassium 3.9 mmoL/L (3.5-5.1); Sodium 134 mmol/L (136-145)
[2022-11-14 06:06] LABS: Alanine Aminotransferase 21 U/L (12-78); Albumin Level 4.3 g/dl (3.5-5.0); Albumin/Globulin Ratio 1.7 (1.1-1.8); Alkaline Phosphatase 62 U/L (38-126); Aspartate Amino Transferase 26 U/L (14-36); Bilirubin,Total 0.4 mg/dl (0.2-1.3); Blood Urea Nitrogen 21 mg/dl (7-17); Carbon Dioxide 22 mmol/L (22.0-30.0); Creatinine Clearance Estimated 65 mL/min (50-200); Estimated Glomerular Filt Rate 53 ml/min (>60); GFR (African American) 65 ML/MIN (>60); Globulin 2.6 g/dL (1.3-3.2); Total Protein,Serum 6.9 g/dl (6.3-8.2)
[2022-11-14 06:07] LABS: Calcium 9.5 mg/dl (8.4-10.2); Glucose 148 mg/dl (74-100); Magnesium 1.9 mg/dl (1.6-2.3)
[2022-11-14 06:14] LABS: Anion Gap 17.9 mEq/L (5-15)
[2022-11-14 08:00] VITALS: BP 154/65; PULSE 71; PULSE 76; RESP 18; TEMP 36.8; O2SAT 96
--- NOTE | 2022-11-14 10:59 | EXP.CARD.PN ---
Subjective Subjective Date: 11/14/22 Time: 10:00 Principal diagnosis: unstable angina Interval history: This is an 82-year-old white female who presented to the emergency department with complaints of chest pain. The patient was felt to have unstable angina and underwent left cardiac catheterization yesterday. The patient had patent coronary artery disease and no percutaneous intervention was required. Today she denies any chest pain or pressure. She denies any shortness of breath or edema. She denies any fever, chills, nausea, vomiting, diarrhea, PND orthopnea. She does states she has a headache from the nitroglycerin drip. This is currently stopped. Her angina was most likely secondary to her malignant hypertension. Exam Data for Last 24 hours Vital signs and Labs for Last 24 Hours: Temp Pulse Resp BP Pulse Ox 98.2 F 71 18 154/65 H 96 11/14/22 08:00 11/14/22 08:00 11/14/22 08:00 11/14/22 08:00 11/14/22 08:00 Laboratory Results - last 24 hr 11/14/22 05:33: WBC 6.8 D, RBC 4.30, Hgb 13.5, Hct 41.3, MCV 95.9, MCH 31.4 H, MCHC 32.7, RDW 13.3, Plt Count 307, MPV 7.5, Neut % (Auto) 79.7, Lymph % (Auto) 17.9, Woodward % (Auto) 1.9, Eos % (Auto) 0.4, Baso % (Auto) 0.1, Neut # (Auto) 5.4, Lymph # (Auto) 1.2, Woodward # (Auto) 0.1, Eos # (Auto) 0.0, Baso # (Auto) 0.0 11/14/22 05:33: Sodium 134 L, Potassium 3.9, Chloride 98, Carbon Dioxide 22, Anion Gap 17.9 H, BUN 21 H, Creatinine 1.00, Estimated Creat Clear 65, Estimated GFR 53 L, Est GFR ( Amer) 65, Glucose 148 H D, Calcium 9.5, Magnesium 1.9, Total Bilirubin 0.4, AST 26, ALT 21, Alkaline Phosphatase 62, Total Protein 6.9, Albumin 4.3, Globulin 2.6, Albumin/Globulin Ratio 1.7 I & O for Last 24 hours: Intake & Output 11/11/22 11/12/22 11/13/22 11/14/22 23:59 23:59 23:59 23:59 Intake Total 249 / 249 584 / 584 120 / 120 Output Total 150 / 150 150 / 150 Balance 99 / 99 434 / 434 120 / 120 Weight 203 lb 1.6 oz 204 lb 2.369 oz 200 lb 13.458 oz Narrative: EKG is sinus rhythm with old inferior DE pattern and a rate of 60 bpm. Constitutional Constitutional: no acute distress and obese *Routine HEENT Exam Head: Present normocephalic and atraumatic ENT: Present mucous membranes moist *Routine Neck Exam Neck: Present supple, full ROM, carotid bruit (bilateral) and normal carotid upstroke; Absent JVD or lymphadenopathy *Routine Respiratory Exam Respiratory: Present CTA bilaterally, normal respiratory effort, able to speak in complete sentences and symmetric chest movement *Routine Cardiovascular Exam Cardiovascular: Present RRR, Normal S1 and Normal S2; Absent murmur or gallop *Routine Abdominal Exam Abdominal: Present soft and normoactive bowel sounds; Absent tenderness, distended or organomegaly *Routine Extremities Exam Extremities: Present full ROM, pulses intact and normal capillary refill; Absent cyanosis, clubbing or edema *Routine Skin Exam Skin: Present intact and warm; Absent erythema *Routine Neurological Exam Neurological: Present alert, oriented X3 and CN II-XII intact; Absent sensory deficit or motor deficit Routine Psychiatric Exam Psychiatric: Present normal affect Progress Note: A&P Assessment and plan (1) CAD (coronary artery disease): Status: Chronic (2) Malignant hypertension: Status: Acute (3) Carotid artery stenosis: Status: Chronic (4) Hypertensive heart disease: Status: Chronic (5) HLD (hyperlipidemia): Status: Chronic (6) PAD (peripheral artery disease): Status: Chronic (7) Status post coronary artery stent placement: Status: Chronic (8) Diastolic dysfunction: Status: Acute Assessment and Plan Assessment and Plan for All Diagnoses:: Plan: 1. This is a 89-year-old female who had symptoms consistent with unstable angina. She underwent left cardiac catheterization and had patent coronary artery disease. No percutaneous intervention was required. The patient will remain on aspirin 81
--- NOTE | 2022-11-14 11:50 | HMH.PHAINT1 ---
Pharmacy Intervention Comments: DISCHARGE MEDICATION COUNSELING PROVIDED. DISCUSSED STOPPING CARVEDILOL 12.5 MG BID AND STARTING CARVEDILOL 25 MG BID (DIZZINESS, LIGHTHEADEDNESS, SLOWED HEART RATE, LOW BP POSSIBLE) AND STARTING ISOSORBIDE MONO FOR CHEST PAIN (TAKE DAILY, DIZZNESS, LOW BP, HEADACHE POSSIBLE). PATIENT VERBALIZED NO QUESTIONS AT THIS TIME.
--- NOTE | 2022-11-15 11:52 | CARE MANAGER ---
Contacted patient related to hospital discharge. She states she feels better and does have her medication. She denies any questions or concerns. SUSY Demarco
== END 2022-11-14 12:21 | disposition home or self-care (01) ==
LOC: ER 14:43 → 2ND 14:54
PROVIDERS: Internal Medicine; Internal Medicine Adolescent Medicine; Nurse Practitioner Family; Admitting Provider Family Medicine; Emergency Provider Emergency Medicine; PCP Nurse Practitioner Family; Visit Provider Family Medicine
DX: I25.110 Atherosclerotic heart disease of native coronary artery with unstable angina pectoris (principal); N18.2 Chronic kidney disease, stage 2 (mild); Z20.822 Contact with and (suspected) exposure to COVID-19; I65.23 Occlusion and stenosis of bilateral carotid arteries; Z79.02 Long term (current) use of antithrombotics/antiplatelets; Z95.5 Presence of coronary angioplasty implant and graft; T82.855A Stenosis of coronary artery stent, initial encounter; I12.9 Hypertensive chronic kidney disease with stage 1 through stage 4 chronic kidney disease, or unspecified chronic kidney disease
CPT/HCPCS: G0378; 36415; 71045; 76770; 80048; 80053; 80061; 80076; 83735; 84484; 85025; 93005; 93306; 93454; 93880; 93976; 99152; 99285; C1725; C1769; C9803; J1644; Q9967; U0003; U0005

== ENCOUNTER 2023-01-21 10:37 | Day surgery (SDC) | payer MEDICARE, SELFPAY ==
[2023-01-17 15:17] VITALS: BMI 34.3
[2023-01-21] VITALS (10 sets, daily range): BP systolic 102–162; BP diastolic 48–79; PULSE 49–64; RESP 15–24; TEMP 36.1–43; O2SAT 96–100
[2023-01-21 11:45] LABS: Basophils % 0.4 % (0.1-2.0); Eosinophils # 0.3 K/mm3 (0.0-0.4); Eosinophils % 3.3 % (0.1-12.0); Hematocrit 39.8 % (37.0-47.0); Hemoglobin 12.9 g/dL (12.2-16.2); Lymphocytes # 2.6 K/mm3 (0.7-4.5); Lymphocytes % 33.7 % (10-50); Mean Corpuscular HGB Conc 32.4 g/dL (31.8-35.4); Mean Corpuscular Hemoglobin 30.3 pg (27.0-31.2); Mean Corpuscular Volume 93.5 fl (81-99); Mean Platelet Volume 7.6 fl (7.4-10.4); Monocytes # 0.5 K/mm3 (0.1-1.0); Monocytes % 6.1 % (1.7-9.3); Neutrophils # 4.3 K/mm3 (1.8-7.8); Neutrophils % 56.5 % (37.0-80.0); Platelet Count 264 K/mm3 (142-424); Red Blood Count 4.26 M/mm3 (4.20-5.40); White Blood Count 7.7 K/mm3 (4.8-10.8)
[2023-01-21 11:52] LABS: Anion Gap 12.7 mEq/L (5-15); Blood Urea Nitrogen 26 mg/dl (7-17); Calcium 9.9 mg/dl (8.4-10.2); Carbon Dioxide 24 mmol/L (22.0-30.0); Chloride 106 mmol/L (98-107); Creatinine Clearance Estimated 53 mL/min (50-200); Estimated Glomerular Filt Rate 43 ml/min (>60); GFR (African American) 52 ML/MIN (>60); Glucose 108 mg/dl (74-100); Potassium 4.7 mmoL/L (3.5-5.1); Sodium 138 mmol/L (136-145)
--- NOTE | 2023-01-21 12:07 | P.PN_ITS ---
[facility] Disclaimer: The information contained in this section may have been updated after the patient was seen, as this information can be updated by other users. Medical History Anxiety Bradycardia CAD (coronary artery disease) Carotid artery stenosis Diastolic dysfunction HLD (hyperlipidemia) Hypertension Hypertensive heart disease Malignant hypertension PAD (peripheral artery disease) Papilloma of tonsil Tonsillitis Unstable angina Surgical History H/O: hysterectomy Hx of CABG Hx of heart artery stent Status post coronary artery stent placement Family History Other Family history of hyperlipidemia Family history of hypertension Family history of myocardial infarction Social History Smoking Status: Never smoker alcohol intake: never substance use type: denies use current occupational status: employed Travel in the last 8 weeks: Inside the [place] household members: none housing: house 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: Yes [facility] Anesthesia Checklist Patient Identification Patient Identification: Arm Band and Verbal (Name & ) Structural Data Admitted From: Home Planned Operative Procedure/s: Excision of papilloma Consent for Planned Operative Procedure(s) Verified: Yes NPO Status Verified Time NPO: 00:00 Chart Verification Results Verified: CBC and BMP Additional verifications Anesthesia Reactions: No Hx Blood Transfusions: No Blood Transfusion Reaction: No Airway Assessment C-Spine Mobility Assessed: Yes TMJ Mobility Assessed: Yes Dentition: Good Dentition Neurological Assessment Level of Consciousness: Awake Hx Seizures: No Numbness or tingling in extremities: No Anesthesia Plan Anesthesia Risk discussed: Yes Anesthesia Plan: Verified ASA Class: III Anesthesia Type: General
--- NOTE | 2023-01-21 12:26 | EXP.OP.NOTE ---
Date of procedure: 01/21/23 Pre-op Diagnosis:: Right tonsillar papilloma Post-op Diagnosis:: Same?pathology pending Procedure performed:: Excision of right tonsillar mass Surgeon:: Thaddeus Hazel III, MD ENERGY ASSISTANT:: Pasha Watts Anesthesia: GETA Estimated blood loss (mL): 2 Operative findings:: Exophytic papilloma right tonsillar fossa superior pole Operative note:: The patient was brought to the operating room and placed under general endotracheal anesthesia. A McIvor mouthgag was used to better expose the oral cavity and oropharynx. I did use the laryngeal mirror to inspect the nasopharynx and did not see any signs of papilloma or other lesions. The superior pole of the right tonsil had an exophytic mass attached to the mucosa. This was carefully dissected free using electrocautery dissection. Any bleeding spots were then spot coagulated. The mass was sent along with the surrounding mucosa for pathologic evaluation. I did inject half percent Marcaine with epinephrine into the tonsillar fossa. Patient was then awakened in the operating room taken recovery room in good condition. The estimated blood loss was less than 5 mL. Condition: stable Disposition: PACU Complications:: None
--- NOTE | 2023-01-21 12:44 | P.PNANES_ITS ---
[facility] Anesthesia Record Part I Anesthesia Record I Intake, IV Amount: 500 Estimated blood loss (mL): 10 Urine output (mL): 0 Blood Pressure: 102/48 SaO2: 100 Pulse Rate: 64 Respiratory Rate: 24 Temperature: 97.3 F Patient is:: Awake Stable to PACU at:: 12:40
--- NOTE | 2023-01-22 07:19 | P.PNANES_ITS ---
[facility] Anesthesia Record Part II Anesthesia Record Part II Discharge Time: 13:10 Destination: Surgical Day Care (OP Surgery) PACU nurse assessment reviewed?: Yes Patient Condition:: Good Anesthesia Complications:: None Swallowing reflex intact?: Yes Cyanosis?: No Blood Pressure: 136/68 Pulse Rate: 52 Temperature: 97 F Mental Status: Alert & Oriented Pain level:: 0 Nausea and/or vomitting:: None Intake, IV Amount: 0
[2023-01-22 07:20] VITALS: BP 136/68; PULSE 52; TEMP 36.1
== END 2023-01-21 12:41 | disposition home or self-care (01) ==
PROVIDERS: PCP Nurse Practitioner Family; Visit Provider Otolaryngology
DX: D10.4 Benign neoplasm of tonsil (principal)
CPT/HCPCS: 42808; 80048; 85025; 88305; J0330; J2405

== ENCOUNTER 2023-09-04 08:37 | Emergency (ER) | payer MEDICARE, SELFPAY ==
[2023-09-04] VITALS (11 sets, daily range): BP systolic 110–184; BP diastolic 53–100; PULSE 52–63; RESP 18; TEMP 36.6; O2SAT 95–98; BMI 36.6
--- NOTE | 2023-09-04 08:37 | ECG_ITS ---
APPROVED REPORT Exam: Resting ECG HR:56 bpm ECG Measurements Heart Rate 56 AXES CA 180 P 55 QRSd 99 QRS 74 QT 419 T 73 QTc 411 Conclusion SINUS BRADYCARDIA POSSIBLE RIGHT VENTRICULAR CONDUCTION DELAY [RSR (QR) IN V1/V2] Old inferior q waves of nonsignificant character BORDERLINE ECG UNCONFIRMED REPORT Electronically signed by : King Lange MD 09/04/2023 20:36:01
--- NOTE | 2023-09-04 08:59 | XR_ITS ---
FINAL REPORT CLINICAL HISTORY: Precordial chest pain FINDINGS: A single view of the chest was obtained. The heart is normal in size. The patient is status post median sternotomy. There is mild airspace opacity in the right lung base which is likely a small focus of pneumonia. The left lung is clear. There is no pleural effusion. There is no pneumothorax. There is no acute osseous abnormality. IMPRESSION: Small focus of pneumonia in the right lung base. Reviewed, Interpreted and Dictated by Yoan Bazan MD Transcribed by Felipa Paiz Authenticated and [facility]
[2023-09-04 09:04] LABS: Basophils % 0.4 % (0.1-2.0); Eosinophils # 0.2 K/mm3 (0.0-0.4); Eosinophils % 3.5 % (0.1-12.0); Hematocrit 38.4 % (37.0-47.0); Hemoglobin 13.1 g/dL (12.2-16.2); Lymphocytes % 34.3 % (10-50); Mean Corpuscular Hemoglobin 33.5 pg (27.0-31.2); Mean Corpuscular Volume 98.6 fl (81-99); Mean Platelet Volume 6.7 fl (7.4-10.4); Monocytes # 0.3 K/mm3 (0.1-1.0); Monocytes % 5.7 % (1.7-9.3); Neutrophils # 3.3 K/mm3 (1.8-7.8); Neutrophils % 56.1 % (37.0-80.0); Platelet Count 279 K/mm3 (142-424); Red Cell Distribution Width 13.6 % (11.5-17.5); White Blood Count 5.8 K/mm3 (4.8-10.8)
--- NOTE | 2023-09-04 09:12 | ED_ITS ---
Discharge Plan Disposition Patient Disposition: Home, Self-Care Prescriptions Prescriptions: New cefdinir 300 mg capsule 300 mg PO BID 7 Days Qty: 14 0RF No Action esomeprazole magnesium [Nexium] 20 mg capsule,delayed release(DR/EC) 20 mg PO DAILY aspirin 81 mg Tablet,Delayed Release (Dr/Ec) 81 mg PO DAILY diltiazem HCl 240 mg capsule,extended release 24hr 240 mg PO DAILY clopidogrel 75 mg tablet 75 mg PO DAILY doxazosin 2 mg tablet 2 mg PO BID carvedilol 25 mg tablet 25 mg PO BID isosorbide mononitrate 60 mg tablet extended release 24 hr 120 mg PO DAILY Referrals Follow up/Referrals: Provider,Referral, MD [Referring] - See instructions Activity Restrictions/Add. Instructions Additional Instructions/Restrictions: Call your family doctor to establish care for this visit to the emergency department and schedule follow-up within 48 hours to ensure improvement. If you have any worsening of your condition or any other concerning signs or symptoms, return to the emergency department or your primary care doctor for further evaluation. Clinical Impressions Clinical Impression: Chest pain Pneumonia Qualifiers: Pneumonia type: due to unspecified organism Laterality: right Lung location: lower lobe of lung Qualified Code(s): J18.9 - Pneumonia, unspecified organism Discharge ED Provider: Zac Zuniga HPI General Chief Complaint: Chest Pain Stated Complaint: chest pain Time Seen by Provider: 09/04/23 08:42 Mode of Arrival: Ambulatory Source of Information: Patient Limitations: No Limitations Description of Symptoms (Recalled from ER Triage Doc. by RN): Patient presents to ER with chest pain that started yesterday and intermittent pain in her right arm that is sharp and radiates into neck and jaw. Patient states she called Dr Mehta who told her to come to ER for evaluation. Patient states she took 3 baby aspirin and nitro with no relief. History of Present Illness HPI narrative: Very pleasant 83-year-old female with history of hypertension, hyperlipidemia, CAD status post stenting and CABG currently on aspirin and Plavix, diastolic heart failure presenting with right upper extremity pain. Patient states that she was sitting down doing nothing in particular when she started having right upper extremity pain in the middle of her biceps that was stabbing and radiates to the right side of her neck. Getting worse into today. Radiates into the right side of her neck into the right side of her jaw. Denies any overt chest pain. She is also having associated shortness of breath that she feels is more than her usual. No diaphoresis, clamminess, nausea or vomiting, fevers or chills, abdominal pain, neurologic deficits, headaches, or any other concerns. Related Data Home Medications Medication Instructions Recorded Confirmed aspirin 81 mg tablet,delayed 81 mg PO DAILY HEART HEALTH 11/12/22 05/29/23 release clopidogrel 75 mg tablet 75 mg PO DAILY PLATELET INHIBITOR 11/12/22 05/29/23 diltiazem HCl 240 mg 240 mg PO DAILY HEART RATE 11/12/22 05/29/23 capsule,extended release 24 hr doxazosin 2 mg tablet 2 mg PO BID Hypertension 11/12/22 05/29/23 carvedilol 25 mg tablet 25 mg PO BID BP 01/17/23 05/29/23 isosorbide mononitrate 60 mg 120 mg PO DAILY BP 01/17/23 05/29/23 tablet,extended release 24 hr esomeprazole magnesium 20 mg 20 mg PO DAILY 05/29/23 05/29/23 capsule,delayed release (Nexium) Previous Rx's Medication Instructions Recorded cefdinir 300 mg capsule 300 mg PO BID 7 days #14 caps 09/04/23 Allergies Allergy/AdvReac Type Severity Reaction Status Date / Time JOSE Inhibitors Allergy Unknown Verified 05/29/23 11:15 allergy reaction ARB-Angiotensin Receptor Allergy Unknown Verified 05/29/23 11:15 Antagonist allergy reaction doxycycline Allergy Unknown Verified 05/29/23 11:15 allergy reaction Fish Containing Products Allergy Unknown Verified 05/29/23 11:15 allergy reaction nitrofurantoin Allergy Unknown Verified 05/29/23 11:15 [From Macrodantin] allergy reaction Penicillins Allergy Unknown Verified 05/29/23 11:15 allergy reaction shellfish derived Allergy Unknown Verified 05/29/23 11:15 allergy reaction Pklwzad-MMC-BaI Reductase Allergy Unknown Verified 05/29/23 11:15 Inhibitor allergy [Iqykowk-Gti-Uyi Reductase reaction Inhibitor] Sulfa (Sulfonamide Allergy Unknown Verified 05/29/23 11:15 Antibiotics) allergy reaction PFSH PFSH Disclaimer: The information contained in this section may have been updated after the patient was seen, as this information can be updated by other users. Medical History Anxiety Bradycardia CAD (coronary artery disease) Carotid artery stenosis Diastolic dysfunction HLD (hyperlipidemia) Hypertension Hypertensive heart disease Malignant hypertension PAD (peripheral artery disease) Papilloma of tonsil Tonsillitis Unstable angina Surgical History H/O: hysterectomy Hx of CABG Hx of heart artery stent Status post coronary artery stent placement Family History Other Family history of hyperlipidemia Family history of hypertension Family history of myocardial infarction Social History Smoking Status: Never smoker alcohol intake: never substance use type: denies use current occupational status: employed Travel in the last 8 weeks: Inside the [place] household members: none housing: house 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 Also has late systolic decrescendo murmur) Extremities Exam Extremities exam: Absent edema Neurological Exam Neurological exam: Present alert, oriented X3 and CN II-XII intact Skin Skin exam: Present warm and dry; Absent cyanosis, diaphoresis or pallor HEART Score HEART Score HEART Score assessment performed?: Yes History (anamnesis): Moderately suspicious ECG: Normal Age: >65 years Risk factors: 3 or more risk factors Troponin: </= normal limit HEART Score: 5 Critical Care Critical Care Time Critical Care Time: No Medical Decision Making Medical Records Medical records reviewed: Yes I reviewed the patient's medical records. Randal Inquiry Pt receiving controlled substance: No Randal was queried for this patient: No Vital Signs Vital Signs: 09/04/23 08:40 09/04/23 08:55 09/04/23 09:01 Temperature 97.8 F Temperature Source Oral Pulse Rate 56 L 53 L Pulse Rate [Right] 55 L Respiratory Rate 18 Blood Pressure 130/100 H Blood Pressure [Right Arm] 184/68 H Blood Pressure Mean 110 Blood Pressure Mean [Right Arm] 106 Blood Pressure Source [Right Arm] Automatic Cuff 02 Sat by Pulse Oximetry 98 95 Oxygen Delivery Method Room Air 09/04/23 09:30 09/04/23 10:00 09/04/23 10:30 Temperature Temperature Source Pulse Rate 54 L 52 L 54 L Pulse Rate [Right] Respiratory Rate Blood Pressure 127/61 133/68 126/59 L Blood Pressure [Right Arm] Blood Pressure Mean 83 Blood Pressure Mean [Right Arm] Blood Pressure Source [Right Arm] 02 Sat by Pulse Oximetry 98 98 97 Oxygen Delivery Method 09/04/23 11:00 09/04/23 12:00 09/04/23 12:01 Temperature Temperature Source Pulse Rate 58 L 57 L 63 Pulse Rate [Right] Respiratory Rate Blood Pressure 139/53 L 110/72 140/76 Blood Pressure [Right Arm] Blood Pressure Mean Blood Pressure Mean [Right Arm] Blood Pressure Source [Right Arm] 02 Sat by Pulse Oximetry 95 97 95 Oxygen Delivery Method 09/04/23 12:32 Temperature Temperature Source Pulse Rate 53 L Pulse Rate [Right] Respiratory Rate Blood Pressure 155/57 H Blood Pressure [Right Arm] Blood Pressure Mean Blood Pressure Mean [Right Arm] Blood Pressure Source [Right Arm] 02 Sat by Pulse Oximetry 96 Oxygen Delivery Method Lab Data Labs: Lab Results 09/04/23 08:40: WBC 5.8, RBC 3.90 L, Hgb 13.1, Hct 38.4, MCV 98.6, MCH 33.5 H, MCHC 34.0, RDW 13.6, Plt Count 279, MPV 6.7 L, Neut % (Auto) 56.1, Lymph % (Auto) 34.3, Casey % (Auto) 5.7, Eos % (Auto) 3.5, Baso % (Auto) 0.4, Neut # (Auto) 3.3, Lymph # (Auto) 2.0, Casey # (Auto) 0.3, Eos # (Auto) 0.2, Baso # (Auto) 0.0, Sodium 133 L, Potassium 4.9, Chloride 105, Carbon Dioxide 27, Anion Gap 5.9, BUN 19 H, Creatinine 1.10 H, Estimated Creat Clear 61, Estimated GFR 48 L, Est GFR ( Amer) 58 L, Glucose 118 H, Calcium 9.1, Total Bilirubin 0.5, AST 34, ALT 28, Alkaline Phosphatase 52, Troponin I < 0.01, NT-Pro-B Natriuret Pep 1360 H, Total Protein 6.4, Albumin 4.1, Globulin 2.3, Albumin/Globulin Ratio 1.8 09/04/23 12:10: Troponin I < 0.01 09/04/23 08:40 09/04/23 08:40 Response Orders (Tests/Meds): ED MEDICATIONS Generic Name Dose Route Start Last Admin Trade Name Freq PRN Reason Stop Dose Admin Nitroglycerin 0.4 mg 09/04/23 09:13 09/04/23 10:04 Nitroglycerin 0.4mg Sl Tablet SL 10/04/23 09:12 0.4 mg Q5MINP PRN Administration Chest Pain Sodium Chloride 10 ml 09/04/23 08:58 Sodium Chloride 0.9% 10ml Flush Syringe IV 10/04/23 08:57 NEEDED PRN Maintain IV Site Discontinued Medications Generic Name Dose Route Start Last Admin Trade Name Freq PRN Reason Stop Dose Admin Aspirin 324 mg 09/04/23 08:59 09/04/23 10:04 Aspirin 81mg Chewable Tablet PO 09/04/23 09:00 Not Given ONCE ONE Cefdinir 300 mg 09/04/23 11:51 09/04/23 12:01 Cefdinir 300mg Capsule PO 09/04/23 11:52 300 mg ONCE ONE Administration Ondansetron HCl 4 mg 09/04/23 10:07 09/04/23 10:08 Ondansetron 4mg/2ml Vial IV 09/04/23 10:08 4 mg ONCE ONE Administration ORDERS Category Date Time Status CXR --portable [XR chest portable] Stat Exams 09/04/23 08:59 Completed Brain Natriuretic Peptide Stat Lab 09/04/23 08:40 Completed CBC [Complete Blood Count Auto Diff] Stat Lab 09/04/23 08:40 Completed CMP [Comprehensive Metabolic Panel] Stat Lab 09/04/23 08:40 Completed Troponin I Q3H Lab 09/04/23 12:10 Completed Troponin I Q3H Lab 09/04/23 15:00 Ordered Troponin I Stat Lab 09/04/23 08:40 Completed ECG initial Besson Routine Y 09/04/23 08:37 Completed MDM Narrative Medical Decision Narrative: Very pleasant 83-year-old female with history of hypertension, hyperlipidemia, CAD status post stenting and CABG currently on aspirin and Plavix, diastolic heart failure presenting with right upper extremity pain. Patient states that she was sitting down doing nothing in particular when she started having right upper extremity pain in the middle of her biceps that was stabbing and radiates to the right side of her neck. Getting worse into today. Radiates into the right side of her neck into the right side of her jaw. Denies any overt chest pain. She is also having associated shortness of breath that she feels is more than her usual. No diaphoresis, clamminess, nausea or vomiting, fevers or chills, abdominal pain, neurologic deficits, headaches, or any other concerns. Patient chewed up 3 baby aspirin and took 1 nitroglycerin prior to arrival. History was obtained via conversation with patient. On arrival, patient hemodynamically stable, alert, oriented x4, appropriate, GCS 15, moving all extremities spontaneously, pupils equal and reactive to light. Full physical exam performed and significant for well-appearing woman in no acut e distress. No lower extremity edema. Cardiac exam significant for right upper sternal border decrescendo murmur as well as apical murmur in late systole which is decrescendo. No other extracardiac sounds. Lungs are clear to auscultation. Abdomen is soft, nontender, nondistended. No intact. Differential includes microvascular coronary artery disease, CHF, ACS, NH, coronary artery dissection, pneumothorax, PE, dissection, pericarditis, myocarditis, pneumothorax, aortic aneurysm, pneumonia, bronchitis, among others. Patient was given 324 mg aspirin at home, so this was held here in the emergency department. She was given nitroglycerin for symptomatic management and correction of underlying abnormalities. Workup independently interpreted and significant for nonactionable CBC or chemistry. Initial troponin negative. Chest x-ray with concern for developing right lower lobe pneumonia. See radiology read for full review of final results. Independent interpretation of EKG shows sinus rhythm 56 beats a minute without ST or T wave changes concerning for acute ischemia. 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 Incomplete right bundle branch block. [place], QRS, QT intervals within normal limits. Patient placed on continuous cardiac monitoring and continuous pulse ox with initial blood pressure 130/100, heart rate 50, saturation 97. Heart score 5. Patient was placed in observation beginning at 9 AM in order to allow evolving NH with delta troponins and determine need for admission versus home-going. The patient was provided cardiac monitoring and serial exams while awaiting results. Independent interpretation of results demonstrated negative delta troponin. On reevaluation, patient resting comfortably in bed and has tolerated medications. At this time, I feel patient is appropriate for discharge. Total observation time 4 hours. On reevaluation, patient resting comfortably bed. Requesting to go home. Patient was given oral cefdinir to trial home-going medications for pneumonia given numerous allergies. She tolerated this well. Cardiology was contacted and case was discussed, they visited patient in the emergency department and were agreeable to discharge if delta troponin negative. Given patient presentation, workup, history, this most likely represents right lower lobe pneumonia. Because patient at baseline without signs or symptoms of clinical decompensation, deemed appropriate for discharge. Results were relayed to patient who voiced understanding and were agreeable to outpatient management and follow up. At the time of discharge the patient was hemodynamically stable, tolerating PO, and mobilizing appropriately.
[2023-09-04 09:13] LABS: Chloride 105 mmol/L (98-107); Potassium 4.9 mmoL/L (3.5-5.1); Sodium 133 mmol/L (136-145)
[2023-09-04 09:16] LABS: Alanine Aminotransferase 28 U/L (12-78); Albumin Level 4.1 g/dl (3.5-5.0); Albumin/Globulin Ratio 1.8 (1.1-1.8); Alkaline Phosphatase 52 U/L (38-126); Anion Gap 5.9 mEq/L (5-15); Aspartate Amino Transferase 34 U/L (14-36); Bilirubin,Total 0.5 mg/dl (0.2-1.3); Blood Urea Nitrogen 19 mg/dl (7-17); Calcium 9.1 mg/dl (8.4-10.2); Carbon Dioxide 27 mmol/L (22.0-30.0); Creatinine Clearance Estimated 61 mL/min (50-200); Estimated Glomerular Filt Rate 48 ml/min (>60); GFR (African American) 58 ML/MIN (>60); Globulin 2.3 g/dL (1.3-3.2); Glucose 118 mg/dl (74-100); Total Protein,Serum 6.4 g/dl (6.3-8.2)
[2023-09-04 09:25] LABS: NT Pro Brain Natriuretic Pep. 1360 pg/mL (0-450)
[2023-09-04 09:30] LABS: Troponin I < 0.01 ng/ml (0.00-0.034)
[2023-09-04] MEDS: NITROGLYCERIN 0.4MG SL TABLET 0.400000000000000022 MG SL (10:04)
[2023-09-04] MEDS: ONDANSETRON 4MG/2ML VIAL 4 MG IV (10:08)
--- NOTE | 2023-09-04 10:08 | PC.NURSE ---
Rounded on Pt to see if they had any needs. Pt stated she was sick at her stomach . Adised the Doctor and he was gonna order something for the pts nausea.
[2023-09-04] MEDS: CEFDINIR 300MG CAPSULE 300 MG PO (12:01)
[2023-09-04 12:46] LABS: Troponin I < 0.01 ng/ml (0.00-0.034)
== END 2023-09-04 13:06 | disposition home or self-care (01) ==
PROVIDERS: Emergency Provider Emergency Medicine; PCP Nurse Practitioner Family
DX: R07.9 Chest pain, unspecified (principal); J18.9 Pneumonia, unspecified organism; M79.601 Pain in right arm; M54.2 Cervicalgia; R68.84 Jaw pain; R06.02 Shortness of breath; I25.110 Atherosclerotic heart disease of native coronary artery with unstable angina pectoris; I65.29 Occlusion and stenosis of unspecified carotid artery; E78.5 Hyperlipidemia, unspecified; I11.9 Hypertensive heart disease without heart failure; I73.9 Peripheral vascular disease, unspecified
CPT/HCPCS: 71045; 80053; 83880; 84484; 85025; 93005; 96374; 99285; J2405

== ENCOUNTER 2023-11-04 11:08 | Outpatient (CLI) | payer MEDICARE, SELFPAY ==
[2023-11-04 11:25] VITALS: BP 165/71; PULSE 72; RESP 18; TEMP 36.6; O2SAT 98
[2023-11-04] MEDS: INCLISIRAN SODIUM 284 MG/1.5 ML SYRINGE SQ (11:25)
== END 2023-11-04 11:43 | disposition home or self-care (01) ==
LOC: INF 11:10
PROVIDERS: PCP Nurse Practitioner Family; Visit Provider Internal Medicine
DX: E78.5 Hyperlipidemia, unspecified (principal)
CPT/HCPCS: 96372; J1306

== ENCOUNTER 2024-01-02 12:28 | Outpatient (CLI) | payer MEDICARE, SELFPAY ==
--- NOTE | 2024-01-02 12:47 | XR_ITS ---
FINAL REPORT CLINICAL HISTORY: low back pain COMPARISON: None FINDINGS: SACRUM COCCYX: 3 images of the sacrum and coccyx were obtained. There is no evidence of fracture or dislocation. There is no soft tissue abnormality identified. IMPRESSION: No acute bony abnormality. Reviewed, Interpreted and Dictated by Flory Garcia MD Transcribed by Mena Wan Authenticated and . [facility]
--- NOTE | 2024-01-02 12:47 | XR_ITS ---
FINAL REPORT CLINICAL HISTORY: low back pain COMPARISON: None FINDINGS: No fracture is identified. Mild diffuse degenerative disc disease is present as well as moderate facet arthropathy. There is anterolisthesis of L4 on L5. IMPRESSION: Degenerative change as described above without acute bony abnormality. Reviewed, Interpreted and Dictated by Flory Garcia MD Transcribed by Mena Wan Authenticated and . [facility]
--- NOTE | 2024-01-02 13:02 | US_ITS ---
FINAL REPORT CLINICAL HISTORY: PAD, RLS, BLE pain, HTN, HLD, hx CABG 2000, CAD COMPARISON: None FINDINGS: LOWER EXTREMITY SEGMENTAL PRESSURE MEASUREMENTS FINDINGS: Pressure indices are as follows: RIGHT LOWER EXTREMITY: Upper thigh: 0.53 Calf: 0.37 Ankle, posterior tibial artery: 0.36 Ankle, dorsalis pedis: 0.36 Toe: 0.56 Comments: Ankle-brachial index right leg 0.36 LEFT LOWER EXTREMITY: Upper thigh: 0.91 Calf: 0.67 Ankle, posterior tibial artery: 0.62 Ankle, dorsalis pedis: 0.66 Toe: 0.82 Comments: Ankle-brachial index left leg 0.66 IMPRESSION: Moderate to severe peripheral vascular disease, worse on the right than on the left. Reviewed, Interpreted and Dictated by Flory Garcia MD Transcribed by Mena Wan Authenticated and [facility]
[2024-01-02 13:51] LABS: Basophils % 0.4 % (0.1-2.0); Eosinophils # 0.2 K/mm3 (0.0-0.4); Eosinophils % 2.4 % (0.1-12.0); Hemoglobin 12.1 g/dL (12.2-16.2); Lymphocytes # 2.2 K/mm3 (0.7-4.5); Lymphocytes % 36.5 % (10-50); Mean Corpuscular HGB Conc 32.8 g/dL (31.8-35.4); Mean Corpuscular Hemoglobin 33.1 pg (27.0-31.2); Mean Platelet Volume 7.5 fl (7.4-10.4); Monocytes # 0.4 K/mm3 (0.1-1.0); Monocytes % 6.1 % (1.7-9.3); Neutrophils # 3.2 K/mm3 (1.8-7.8); Neutrophils % 54.6 % (37.0-80.0); Platelet Count 301 K/mm3 (142-424); Red Blood Count 3.66 M/mm3 (4.20-5.40); Red Cell Distribution Width 13.8 % (11.5-17.5); White Blood Count 5.9 K/mm3 (4.8-10.8)
[2024-01-02 14:14] LABS: Alanine Aminotransferase 22 U/L (12-78); Albumin Level 4.1 g/dl (3.5-5.0); Alkaline Phosphatase 57 U/L (38-126); Anion Gap 10.8 mEq/L (5-15); Aspartate Amino Transferase 27 U/L (14-36); Bilirubin,Indirect 0.6 mg/dL (0.0-0.9); Bilirubin,Total 0.6 mg/dl (0.2-1.3); Bilirubin,Unconjugated 0.7 mg/dL (0.0-1.1); Blood Urea Nitrogen 25 mg/dl (7-17); Calcium 9.3 mg/dl (8.4-10.2); Carbon Dioxide 26 mmol/L (22.0-30.0); Chloride 101 mmol/L (98-107); Chol/HDL Ratio 4.7 (1-3.5); Cholesterol 160 mg/dl (140-200); Creatine Kinase 33 U/L (30-135); Estimated Glomerular Filt Rate 43 ml/min (>60); GFR (African American) 52 ML/MIN (>60); Glucose 105 mg/dl (74-100); HDL Cholesterol 34 mg/dl (40-60); Magnesium 1.8 mg/dl (1.6-2.3); Potassium 4.8 mmoL/L (3.5-5.1); Sodium 133 mmol/L (136-145); Total Protein,Serum 6.2 g/dl (6.3-8.2); Triglycerides 241 mg/dl (30-150); VLDL Cholesterol 48 mg/dL (0-40)
[2024-01-02 14:25] LABS: C-Reactive Protein 4.4 mg/L (0-4); Direct LDL Cholesterol 67.33 mg/dL (100-129)
[2024-01-02 14:27] LABS: Erythrocyte Sedimentation Rate 20 mm/hr (0-30)
[2024-01-02 14:30] LABS: Free T4 (Free Thyroxine) 1.24 ng/dl (0.78-2.19)
[2024-01-02 15:04] LABS: Vitamin B12 930 pg/mL (239-931)
[2024-01-06 14:00] LABS: Albumin 3.8 g/dL (2.9-4.4); Alpha-1-Globulin 0.2 g/dL (0.0-0.4); Alpha-2-Globulin 0.7 g/dL (0.4-1.0); Gamma Globulin 0.6 g/dL (0.4-1.8); Protein, Total 6.2 g/dL (6.0-8.5)
[2024-01-25 10:32] LABS: PDF SCANNED IMAGE
== END 2024-01-02 23:59 | disposition home or self-care (01) ==
PROVIDERS: PCP Nurse Practitioner; Visit Provider Internal Medicine
DX: M79.604 Pain in right leg (principal); M79.605 Pain in left leg; I73.9 Peripheral vascular disease, unspecified; I65.23 Occlusion and stenosis of bilateral carotid arteries; I11.9 Hypertensive heart disease without heart failure; I25.10 Atherosclerotic heart disease of native coronary artery without angina pectoris; E78.2 Mixed hyperlipidemia; G25.81 Restless legs syndrome; M54.50 Low back pain, unspecified
CPT/HCPCS: 36415; 72100; 72220; 80048; 80061; 80076; 82550; 82607; 83735; 84155; 84165; 84439; 84443; 85025; 85651; 86140; 93923

== ENCOUNTER 2024-01-03 13:49 | Observation (INO) | payer MEDICARE, SELFPAY ==
[2024-01-03] VITALS (59 sets, daily range): BP systolic 100–209; BP diastolic 41–179; PULSE 49–68; RESP 16–20; TEMP 36.6–36.9; O2SAT 94–100; BMI 37.5; BMI 37.4
--- NOTE | 2024-01-03 07:14 | IR_ITS ---
APPROVED REPORT Patient Location: [facility] Operator: KEZIA Lopez RT (R) PROCEDURES Right femoral arterial access Pigtail catheter in the abdominal aorta Abdominal aortography Repositioning the cath and abdominal aorta Bilateral iliofemoral runoff Intravascular lithotripsy to the left superficial femoral artery Intravascular lithotripsy to the left popliteal artery Intravascular lithotripsy to the left PT trunk Drug-coated balloon angioplasty to the left PT trunk Drug-coated balloon angioplasty to the left popliteal artery Drug-coated balloon angioplasty to the left superficial femoral artery Bare-metal stent deployment to the left superficial femoral artery Catheter placement in the right common iliac artery Right common iliac artery retrograde angiogram Bare-metal stent deployment to the right common iliac artery INDICATION Peripheral artery disease, Abnormal ROSANNA, [place] claudication class IV, Atherosclerosis of the left SFA left popliteal artery and left PT trunk, Atherosclerosis of the right common iliac artery Informed consent was obtained prior to the procedure. COMPLICATIONS NONE Estimated Blood Loss: LESS THAN 10 ML TECHNIQUE 1% lidocaine used anesthetize right groin the right femoral artery was accessed via the Salinger technique and a 5 Dominican sheath placed in the right femoral artery and a pigtail catheter was advanced to the abdominal aorta where abdominal aortography was performed. Catheter was then repositioned and bilateral iliofemoral foot was performed. Following this a rim catheter was used to cannulate the left common iliac artery and an advantage wire was placed under fluoroscopic guidance into the left SFA. The 5 Dominican sheath was exchanged for a 6 Dominican destination sheath. Therapeutic heparin was administered giving a therapeutic ACT. An 014 wire was placed distally into the anterior tibialis artery. Initially a 5 mm x 60 mm intravascular lithotripsy was advanced to the PT trunk deployed at 4 ion and a total of 300 pulsations were delivered from the PT trunk back into the left SFA. Following this a 5 mm x 250 mm drug-coated balloon was advanced into the left popliteal artery extending anteriorly. This was deployed for 3 minutes at 8 ion. A 4 mm x 40 mm drug-coated balloon was then advanced to the PT trunk and deployed at 8 ion for 3 minutes. An additional 6 mm x 200 mm drug-coated balloon was then deployed in the left SFA. A large dissection was identified at the left SFA which appeared to be flow-limiting therefore a 6 mm x 40 mm self-expanding stent was deployed. A 6 mm x 200 mm drug-coated balloon was then advanced back into this area both proximally and distally and deployed for 3 minutes at 5 ion. An additional dissection was identified distally therefore a 6 mm x 80 mm self-expanding stent was placed distal to the 40 mm stent yet still overlapping it and deployed. A 6 mm x 80 mm balloon was then readvanced and deployed at 10 ion to mesh the stents and to further post dilate. At the end of the procedure the apparatus was pulled back into the right common iliac artery and the wire was advanced to the abdominal aorta. Retrograde angiography was performed and an 8 mm x 27 mm balloon mounted bare-metal stent was deployed in the right common iliac artery reducing the stenosis to 0%. Excellent angiographic results were obtained. At the end the procedure the apparatus was removed the long 6 Dominican sheath was exchanged for a short 6 Dominican sheath and patient was transferred to the postop holding in stable condition ANGIOGRAPHIC RESULTS The infrarenal abdominal aorta tapers is calcified has a distal 30% stenosis followed by an additional concentric 40% stenosis. Right common iliac artery has an ostial 70% stenosis. The right internal iliac artery is patent the right external iliac artery is patent right common femoral artery is patent. The right profunda femoris artery has proximal 40% in the mid vessel 70% stenosis. Right superficial femoral artery is heavily diseased and then subtotally occluded at Enmanuel's canal. Right to right collaterals are present. The vessel reconstitutes and has diffuse 50% calcified stenoses. The right anterior tibialis artery has proximal calcified 80% stenosis but is patent as is the peroneal artery and the posterior tibialis artery. The PT trunk has diffuse 70% stenoses Left common internal and external iliac arteries are patent. The left common femoral artery is patent. The left profunda femoris artery is patent. The left superficial femoral artery has severe proximal and mid vessel diffuse 90% calcified stenoses. The popliteal artery has 70% stenoses. At the PT trunk there is a focal concentric 80 to 90% stenosis. The left anterior tibialis artery is proximally patent and has a proximal concentric 80 to 90% stenosis. The anterior tibialis artery supplies the left foot the peroneal artery and posterior tibialis artery are both patent IMPRESSION Peripheral artery disease as described above Successful intravascular lithotripsy to the left PT trunk, left popliteal artery, left superficial femoral artery Successful drug coated balloon angioplasty to left PT trunk, left popliteal artery, left superficial femoral artery Successful self-expanding stent to the left superficial femoral artery Successful percutaneous stenting of the right common artery severe disease reduced to 0% with 1 balloon expandable bare-metal stent Persistent severe disease throughout the right SFA and right popliteal artery PLAN 1. Aspirin and Plavix 2. Continue Leqvio 3. Patient should be admitted overnight given IV fluids with blood pressure monitoring 4. Chemistry and CBC panel in the morning 5. Patient be brought back to the hospital in 3 to 4 weeks after the right common iliac artery stent is endothelialized and will undergo reconstruction of the right SFA and right popliteal artery 6. Follow-up in clinic in 2 weeks Electronically signed by : Santi Mehta MD 01/03/2024 13:30:07
[2024-01-03] MEDS: ONDANSETRON 4MG/2ML VIAL 4 MG IV (08:44)
[2024-01-03 08:48] LABS: Basophils # 0.1 K/mm3 (0-0.2); Eosinophils # 0.1 K/mm3 (0.0-0.4); Eosinophils % 2.4 % (0.1-12.0); Hematocrit 38.2 % (37.0-47.0); Hemoglobin 12.7 g/dL (12.2-16.2); Lymphocytes # 1.8 K/mm3 (0.7-4.5); Lymphocytes % 32.8 % (10-50); Mean Corpuscular HGB Conc 33.2 g/dL (31.8-35.4); Mean Corpuscular Hemoglobin 32.7 pg (27.0-31.2); Mean Corpuscular Volume 98.5 fl (81-99); Mean Platelet Volume 8.3 fl (7.4-10.4); Monocytes # 0.4 K/mm3 (0.1-1.0); Neutrophils # 3.2 K/mm3 (1.8-7.8); Neutrophils % 56.8 % (37.0-80.0); Platelet Count 313 K/mm3 (142-424); Red Blood Count 3.88 M/mm3 (4.20-5.40); White Blood Count 5.6 K/mm3 (4.8-10.8)
[2024-01-03 08:59] LABS: Anion Gap 13.4 mEq/L (5-15); Blood Urea Nitrogen 23 mg/dl (7-17); Calcium 10.1 mg/dl (8.4-10.2); Carbon Dioxide 27 mmol/L (22.0-30.0); Chloride 101 mmol/L (98-107); Creatinine Clearance Estimated 58 mL/min (50-200); Estimated Glomerular Filt Rate 43 ml/min (>60); GFR (African American) 52 ML/MIN (>60); Glucose 120 mg/dl (74-100); Potassium 4.4 mmoL/L (3.5-5.1); Sodium 137 mmol/L (136-145)
[2024-01-03] MEDS: 0.9 % SODIUM CHLORIDE 500 ML 25 ML IV (11:03)
[2024-01-03] MEDS: HEPARIN 1,000 UNITS/500ML NS (CATH LAB) 3000 UNIT IV (11:03)
[2024-01-03] MEDS: LIDOCAINE 1% 10ML MDV 20 ML IJ (11:03)
[2024-01-03] MEDS: diphenhydrAMINE 50MG/ML VIAL 50 MG IV (11:03)
[2024-01-03] MEDS: HEPARIN 1,000 UNITS/ML 10ML VIAL (CATH LAB) 10000 UNIT IV (11:56)
[2024-01-03] MEDS: MIDAZOLAM HCL 1MG/1ML 5ML VIAL 1 MG IV (13:10)
[2024-01-03] MEDS: HYDRALAZINE 20MG/ML VIAL 20 MG IV (13:11)
[2024-01-03] MEDS: FENTANYL 100MCG/2ML VIAL 50 MCG IV (13:11)
--- NOTE | 2024-01-03 13:36 | SUR.PHASEII ---
Dr Mehta called [place] for admission, case management notified
[2024-01-03 13:41] LABS: CATHL Activated Clotting Time 287 SEC (74-125)
[2024-01-03] MEDS: IOPAMIDOL-250 (51%) 100ML BOT 380 ML IV (13:57)
--- NOTE | 2024-01-03 14:02 | HMH.PHAINT1 ---
Pharmacy Intervention Comments: HOME MED LIST COMPLETED USING LIST FROM OUTPATIENT PHARMACY
--- NOTE | 2024-01-03 14:07 | P.HP_ITS ---
History of Present Illness *Admission Date: 01/03/24 *Reason for visit:: PAD *History of present illness: Ms. Barrera is a 83-year-old female with significant CAD, PAD, recent heart cath, malignant hypertension. She presented for elective outpatient procedure due to her peripheral artery disease. She has a history of abnormal ABIs with [place] claudication class IV. Significant atherosclerosis of the left SFA, left popliteal artery, and left PT trunk. Also has atherosclerosis of the right common iliac artery. Procedure performed with successful revascularization of left lower extremity. Tolerated procedure well. Necessitated significant contrast. Given the need to lay flat, renal dysfunction, medicine was consulted for admission and monitoring overnight. On arrival to the floor, patient denies any chest pain, shortness of breath, nausea or vomiting. Does feel somewhat cold. Also complaining of a headache. Otherwise hemodynamically stable in no acute distress. [facility] Disclaimer: The information contained in this section may have been updated after the patient was seen, as this information can be updated by other users. Medical History Anemia Abnormal ankle brachial index (ROSANNA) Claudication Low back pain Bilateral leg pain RLS (restless legs syndrome) Papilloma of tonsil Tonsillitis Malignant hypertension Hypertension Diastolic dysfunction Anxiety Unstable angina PAD (peripheral artery disease) HLD (hyperlipidemia) CAD (coronary artery disease) Carotid artery stenosis Bradycardia Hypertensive heart disease Surgical History Hx of heart artery stent H/O: hysterectomy Hx of CABG Status post coronary artery stent placement Family History Other Family history of hyperlipidemia Family history of hypertension Family history of myocardial infarction Social History Smoking Status: Never smoker alcohol intake: never substance use type: denies use current occupational status: employed Travel in the last 8 weeks: Inside the [place] household members: none housing: house 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 caffeine: Yes Review of Systems Review of Systems Review of systems (narrative): 14 point review of systems performed, pertinent positives and negatives as per HPI Meds Home Medications and Allergies Home Medications Medication Instructions Recorded Confirmed Type aspirin 81 mg tablet,delayed 81 mg PO DAILY 11/12/22 01/03/24 History release clopidogrel 75 mg tablet 75 mg PO DAILY 11/12/22 01/03/24 History diltiazem HCl 240 mg 240 mg PO DAILY 11/12/22 01/03/24 History capsule,extended release 24 hr doxazosin 2 mg tablet 2 mg PO BID 11/12/22 01/03/24 History carvedilol 25 mg tablet 25 mg PO BID BP 01/17/23 01/03/24 History isosorbide mononitrate 60 mg 120 mg PO DAILY 01/17/23 01/03/24 History tablet,extended release 24 hr esomeprazole magnesium 20 mg 20 mg PO DAILY 05/29/23 01/03/24 History capsule,delayed release (Nexium) inclisiran 284 mg/1.5 mL 284 mg (1.5 mL) SQ [id number] #1.5 mL 10/02/23 01/03/24 Rx subcutaneous syringe (Leqvio) tizanidine 4 mg tablet 4 mg PO HSP PRN Pain 01/02/24 01/03/24 History ropinirole 2 mg tablet 2 mg PO HS 01/03/24 01/03/24 History New Prescriptions to Start Prescriptions: Allergies Allergy/AdvReac Type Severity Reaction Status Date / Time JOSE Inhibitors Allergy Unknown Verified 01/03/24 16:10 allergy reaction ARB-Angiotensin Receptor Allergy Unknown Verified 01/03/24 16:10 Antagonist allergy reaction doxycycline Allergy Unknown Verified 01/03/24 16:10 allergy reaction Fish Containing Products Allergy Unknown Verified 01/03/24 16:10 allergy reaction nitrofurantoin Allergy Unknown Verified 01/03/24 16:10 [From Macrodantin] allergy reaction Penicillins Allergy Unknown Verified 01/03/24 16:10 allergy reaction shellfish derived Allergy Unknown Verified 01/03/24 16:10 allergy reaction Zeqscvy-KVZ-OkA Reductase Allergy Unknown Verified 01/03/24 16:10 Inhibitor allergy [Spxxwja-Yhq-Yfk Reductase reaction Inhibitor] Sulfa (Sulfonamide Allergy Unknown Verified 01/03/24 16:10 Antibiotics) allergy reaction Exam Data for Last 24 hours Vital signs and Labs for Last 24 Hours: Temp Pulse Resp BP Pulse Ox O2 Del Method 98.4 F 56 L 18 120/54 L 99 Room Air 01/03/24 08:36 01/03/24 13:27 01/03/24 13:27 01/03/24 13:27 01/03/24 13:27 01/03/24 13:27 Laboratory Results - last 24 hr 01/03/24 08:37: WBC 5.6, RBC 3.88 L, Hgb 12.7, Hct 38.2, MCV 98.5, MCH 32.7 H, MCHC 33.2, RDW 14.0, Plt Count 313, MPV 8.3, Neut % (Auto) 56.8, Lymph % (Auto) 32.8, [place] % (Auto) 7.0, Eos % (Auto) 2.4, Baso % (Auto) 1.0, Neut # (Auto) 3.2, Lymph # (Auto) 1.8, [place] # (Auto) 0.4, Eos # (Auto) 0.1, Baso # (Auto) 0.1, Sodium 137, Potassium 4.4, Chloride 101, Carbon Dioxide 27, Anion Gap 13.4, BUN 23 H, Creatinine 1.20 H, Estimated Creat Clear 58, Estimated GFR 43 L, Est GFR ( Amer) 52 L, Glucose 120 H, Calcium 10.1 01/03/24 12:51: Activated Clotting Time 287 H* I & O for Last 24 hours: Intake & Output 12/31/23 01/01/24 01/02/24 01/03/24 23:59 23:59 23:59 23:59 Weight 99.337 kg Constitutional Constitutional: no acute distress, morbidly obese and cooperative *Routine HEENT Exam Head: Present normocephalic Eye: Present EOMI and PERRL ENT: Present mucous membranes moist *Routine Neck Exam Neck: Present supple and full ROM; Absent JVD *Routine Respiratory Exam Respiratory: Present rhonchi and normal respiratory effort *Routine Cardiovascular Exam Cardiovascular: Present bradycardia; Absent JVD *Routine Abdominal Exam Abdominal: Present soft and normoactive bowel sounds; Absent tenderness *Routine Rectal Exam Rectal:: deferred *Routine Genitalia Exam Genitalia:: deferred *Routine Extremities Exam Extremities: Present full ROM and pulses intact; Absent cyanosis, clubbing or edema Comments: Right femoral insert site clean dry and intact. No hematoma. *Routine Skin Exam Skin: Present warm; Absent cyanosis or rash *Routine Neurological Exam Neurological: Present alert, oriented X3, moving all extremities and normal speech; Absent sensory deficit or motor deficit Routine Psychiatric Exam Psychiatric: Present normal affect, normal thought process, cooperative, good insight and good judgment Assessment and Plan *Assessment and plan (1) Claudication: Status: Acute Category: Medical Code(s): I73.9 - Peripheral vascular disease, unspecified (2) Abnormal ankle brachial index (ROSANNA): Status: Acute Category: Medical Code(s): R68.89 - Other general symptoms and signs (3) CAD (coronary artery disease): Status: Chronic Qualifiers: Associated angina: without angina Coronary Disease-Associated Artery/Lesion type: [place] artery [place] vs. transplanted heart: [place] heart Qualified Code(s): I25.10 - Atherosclerotic heart disease of [place] coronary artery without angina pectoris Category: Medical Code(s): I25.10 - Atherosclerotic heart disease of [place] coronary artery without angina pectoris (4) Malignant hypertension: Status: Acute Category: Medical Code(s): I10 - Essential (primary) hypertension (5) Carotid artery stenosis: Status: Chronic Qualifiers: Laterality: bilateral Qualified Code(s): I65.23 - Occlusion and stenosis of bilateral carotid arteries Category: Medical Code(s): I65.29 - Occlusion and stenosis of unspecified carotid artery (6) CKD (chronic kidney disease): Status: Chronic Category: Medical Code(s): N18.9 - Chronic kidney disease, unspecified (7) Class 2 obesity: Status: Chronic Category: Medical Code(s): E66.9 - Obesity, unspecified Plan This is an 82-year-old female with coronary artery disease and peripheral vascular disease. Brought in for elective peripheral angiogram, status post intervention. Discussed case with cardiology, request admission for monitoring overnight due to contrast load and monitoring labile blood pressure. I agreed to admit for further management. Problems addressed as follows: Peripheral vascular disease CAD Malignant hypertension -Admitted for monitoring overnight. Patient hemodynamically stable. -Continue aspirin 81 mg daily, Plavix 75 mg daily. - continue diltiazem 240 mg daily, continue carvedilol increased to 25 mg twice daily, isosorbide 60 mg daily -Reviewed cardiology documentation. Had significant peripheral artery disease. Successful intravascular lithotripsy to the left PT trunk, left popliteal artery left superficial femoral artery. Balloon angioplasty performed throughout the same vasculature. Self-expanding stent placed in the left superficial femoral artery. -Noted to have persistent disease throughout the right SFA and right popliteal artery. -Plan to return in 3 to 4 weeks to address right-sided peripheral vascular disease Carotid artery disease Antiplatelet therapy Statin allergy noted, currently on Leqvio. Continue as an outpatient Headache: Continue Tylenol 650 mg as needed every 6 hours. CKD 3: Kidney function at baseline with creatinine 1.2. Repeat labs in the morning with CBC, CMP, magnesium to monitor kidney function and electrolytes. 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
[2024-01-03] MEDS: PROTAMINE SULFATE 50MG/5ML VIAL (CATH LAB) 20 MG IV (14:42)
[2024-01-03] MEDS: PROMETHAZINE HCL 25MG/ML 1ML VIAL 25 MG IV (15:50)
--- NOTE | 2024-01-03 15:50 | INFXCTL.NOTE ---
arrived by moniqueer from [facility]
--- NOTE | 2024-01-03 16:11 | SUR.PHASEII ---
Skin tears noted to right groin around access site, notified med surg nurse, small amount of bleeding noted to skin tears, dressing applied. Groin is soft, no arterial bleeding noted, some bruising.
--- NOTE | 2024-01-03 20:21 | P.PN_ITS ---
Subjective *Date: 01/03/24 *Time: 20:21 Interval history: Patient reports that she is having back pain and that the Tylenol is not helping Exam Data for Last 24 hours Vital signs and Labs for Last 24 Hours: Temp Pulse Resp BP Pulse Ox O2 Del Method O2 Flow Rate 97.8 F 65 18 144/59 H 95 Room Air 2 01/03/24 16:00 01/03/24 18:40 01/03/24 18:40 01/03/24 18:40 01/03/24 18:40 01/03/24 18:40 01/03/24 15:45 Laboratory Results - last 24 hr 01/03/24 08:37: WBC 5.6, RBC 3.88 L, Hgb 12.7, Hct 38.2, MCV 98.5, MCH 32.7 H, MCHC 33.2, RDW 14.0, Plt Count 313, MPV 8.3, Neut % (Auto) 56.8, Lymph % (Auto) 32.8, [place] % (Auto) 7.0, Eos % (Auto) 2.4, Baso % (Auto) 1.0, Neut # (Auto) 3.2, Lymph # (Auto) 1.8, [place] # (Auto) 0.4, Eos # (Auto) 0.1, Baso # (Auto) 0.1, Sodium 137, Potassium 4.4, Chloride 101, Carbon Dioxide 27, Anion Gap 13.4, BUN 23 H, Creatinine 1.20 H, Estimated Creat Clear 58, Estimated GFR 43 L, Est GFR ( Amer) 52 L, Glucose 120 H, Calcium 10.1 01/03/24 12:51: Activated Clotting Time 287 H* I & O for Last 24 hours: Intake & Output 12/31/23 01/01/24 01/02/24 01/03/24 23:59 23:59 23:59 23:59 Weight 99 kg Constitutional Constitutional: mild distress Comments: Patient is on bedrest but able to move her legs and ankles well *Routine Extremities Exam Comments: Patient is on bed rest but able to move her legs and ankles well. She has full sensation to both lower extremities *Routine Skin Exam Skin: Present cyanosis and normal turgor Comments: has normal turgor and feet warm to touch Assessment and Plan *Assessment and plan (1) Back pain: Status: Acute Qualifiers: Back pain location: low back pain Chronicity: acute Category: Medical Code(s): M54.9 - Dorsalgia, unspecified Plan 1. to add one time dose tramadol. and continue tylenol
--- NOTE | 2024-01-03 20:21 | EXP.EVENT.NO ---
this note in errorr was changed ot progress note
[2024-01-03] MEDS: TRAMADOL 50MG TABLET 50 MG PO (20:40)
[2024-01-03] MEDS: CLOPIDOGREL 75MG TAB 75 MG PO (21:15)
[2024-01-03] MEDS: CARVEDILOL 25MG TABLET 25 MG PO (21:15)
[2024-01-03] MEDS: DOXAZOSIN MESYLATE 1 MG TABLET 2 MG PO (21:16)
[2024-01-03] MEDS: ASPIRIN EC 81MG TABLET 81 MG PO (21:16)
[2024-01-03] MEDS: PANTOPRAZOLE 40MG TABLET 40 MG PO (21:16)
[2024-01-03] MEDS: ROPINIROLE 1MG TABLET 2 MG PO (21:16)
[2024-01-04] VITALS: PULSE 71
[2024-01-04 04:00] VITALS: BP 150/57; PULSE 63; PULSE 65; RESP 18; TEMP 36.7; O2SAT 93; BMI 37.5
--- NOTE | 2024-01-04 06:48 | PC.NURSE ---
lg bruising to right groin, no hematoma or bleeding noted.
[2024-01-04 08:00] VITALS: BP 163/73; PULSE 68; PULSE 70; RESP 18; TEMP 36.5; O2SAT 97
[2024-01-04] MEDS: CARVEDILOL 25MG TABLET 25 MG PO (08:09)
[2024-01-04] MEDS: ISOSORBIDE MONO 60MG TAB.ER.24H 120 MG PO (08:09)
[2024-01-04] MEDS: DOXAZOSIN MESYLATE 1 MG TABLET 2 MG PO (08:09)
[2024-01-04] MEDS: dilTIAZem ER 240MG CAPSULE 240 MG PO (08:09)
[2024-01-04 08:16] LABS: Basophils % 0.4 % (0.1-2.0); Eosinophils # 0.2 K/mm3 (0.0-0.4); Eosinophils % 2.5 % (0.1-12.0); Hematocrit 34.8 % (37.0-47.0); Hemoglobin 11.5 g/dL (12.2-16.2); Lymphocytes # 1.5 K/mm3 (0.7-4.5); Lymphocytes % 22.7 % (10-50); Mean Corpuscular HGB Conc 33.2 g/dL (31.8-35.4); Mean Corpuscular Hemoglobin 33.7 pg (27.0-31.2); Mean Corpuscular Volume 101.8 fl (81-99); Mean Platelet Volume 7.5 fl (7.4-10.4); Monocytes # 0.5 K/mm3 (0.1-1.0); Monocytes % 8.2 % (1.7-9.3); Neutrophils # 4.3 K/mm3 (1.8-7.8); Neutrophils % 66.2 % (37.0-80.0); Platelet Count 263 K/mm3 (142-424); Red Blood Count 3.42 M/mm3 (4.20-5.40); Red Cell Distribution Width 13.8 % (11.5-17.5); White Blood Count 6.5 K/mm3 (4.8-10.8)
[2024-01-04 08:19] LABS: Chloride 103 mmol/L (98-107)
[2024-01-04 08:20] LABS: Potassium 3.8 mmoL/L (3.5-5.1); Sodium 134 mmol/L (136-145)
[2024-01-04 08:22] LABS: Alanine Aminotransferase 22 U/L (12-78); Alkaline Phosphatase 62 U/L (38-126); Aspartate Amino Transferase 28 U/L (14-36); Bilirubin,Total 0.3 mg/dl (0.2-1.3); Blood Urea Nitrogen 19 mg/dl (7-17); Creatinine Clearance Estimated 58 mL/min (50-200); Estimated Glomerular Filt Rate 43 ml/min (>60); GFR (African American) 52 ML/MIN (>60)
[2024-01-04 08:23] LABS: Albumin Level 3.7 g/dl (3.5-5.0); Albumin/Globulin Ratio 1.5 (1.1-1.8); Anion Gap 10.8 mEq/L (5-15); Calcium 9.2 mg/dl (8.4-10.2); Carbon Dioxide 24 mmol/L (22.0-30.0); Globulin 2.4 g/dL (1.3-3.2); Glucose 110 mg/dl (74-100); Total Protein,Serum 6.1 g/dl (6.3-8.2)
--- NOTE | 2024-01-04 10:27 | P.DS_ITS ---
General Admission date:: 01/03/24 Discharge date: 01/04/24 HPI HPI HPI: Ms. Barrera is a 83-year-old female with significant CAD, PAD, recent heart cath, malignant hypertension. She presented for elective outpatient procedure due to her peripheral artery disease. She has a history of abnormal ABIs with [place] claudication class IV. Significant atherosclerosis of the left SFA, left popliteal artery, and left PT trunk. Also has atherosclerosis of the right common iliac artery. Procedure performed with successful revascularization of left lower extremity. Tolerated procedure well. Necessitated significant contrast. Given the need to lay flat, renal dysfunction, medicine was consulted for admission and monitoring overnight. On arrival to the floor, patient denies any chest pain, shortness of breath, nausea or vomiting. Does feel somewhat cold. Also complaining of a headache. Otherwise hemodynamically stable in no acute distress. Hospital Course Hospital Course Hospital Course: This is an 82-year-old female with coronary artery disease and peripheral vascular disease. Brought in for elective peripheral angiogram, status post intervention. Discussed case with cardiology, request admission for monitoring overnight due to contrast load and monitoring labile blood pressure. I agreed to admit for further management. Did well overnight. Blood pressure stable. No signs of active bleeding. Stable to discharge home. Problems addressed as follows: Peripheral vascular disease CAD Malignant hypertension -Admitted for monitoring overnight. Patient hemodynamically stable. Continued aspirin 81 mg daily, Plavix 75 mg daily. Continued diltiazem 240 mg daily, carvedilol increased to 25 mg twice daily, isosorbide 60 mg daily. Reviewed cardiology documentation. Had significant peripheral artery disease. Successful intravascular lithotripsy to the left PT trunk, left popliteal artery left superficial femoral artery. Balloon angioplasty performed throughout the same vasculature. Self-expanding stent placed in the left superficial femoral artery. Noted to have persistent disease throughout the right SFA and right popliteal artery. Plan to return in 3 to 4 weeks to address right-sided peripheral vascular disease. Repeat labs this morning with stable kidney function and electrolytes. Hemoglobin stable. 11.5 on day of discharge. Carotid artery disease Antiplatelet therapy. Statin allergy noted, currently on Leqvio. Continue as an outpatient Headache: Continue Tylenol 650 mg as needed every 6 hours. CKD 3: Kidney function at baseline with creatinine 1.2. Repeat labs in the morning with CBC, CMP, magnesium to monitor kidney function and electrolytes. Exam Data for Last 24 hours Vital signs and Labs for Last 24 Hours: Temp Pulse Resp BP Pulse Ox O2 Del Method O2 Flow Rate 97.7 F 68 18 163/73 H 97 Room Air 2 01/04/24 08:00 01/04/24 08:00 01/04/24 08:00 01/04/24 08:00 01/04/24 08:00 01/04/24 09:01 01/03/24 15:45 Laboratory Results - last 24 hr 01/03/24 12:51: Activated Clotting Time 287 H* 01/04/24 06:40: WBC 6.5, RBC 3.42 L, Hgb 11.5 L, Hct 34.8 L, MCV 101.8 H, MCH 33.7 H, MCHC 33.2, RDW 13.8, Plt Count 263, MPV 7.5, Neut % (Auto) 66.2, Lymph % (Auto) 22.7, [place] % (Auto) 8.2, Eos % (Auto) 2.5, Baso % (Auto) 0.4, Neut # (Auto) 4.3, Lymph # (Auto) 1.5, [place] # (Auto) 0.5, Eos # (Auto) 0.2, Baso # (Auto) 0.0, Sodium 134 L, Potassium 3.8, Chloride 103, Carbon Dioxide 24, Anion Gap 10.8, BUN 19 H, Creatinine 1.20 H, Estimated Creat Clear 58, Estimated GFR 43 L, Est GFR ( Amer) 52 L, Glucose 110 H, Calcium 9.2, Total Bilirubin 0.3, AST 28, ALT 22, Alkaline Phosphatase 62, Total Protein 6.1 L, Albumin 3.7, Globulin 2.4, Albumin/Globulin Ratio 1.5 I & O for Last 24 hours: Intake & Output 01/01/24 01/02/24 01/03/24 01/04/24 23:59 23:59 23:59 23:59 Intake Total 240 / 240 Output Total 0 / 400 400 / 400 Balance 0 / -400 -160 / -160 Weight 99 kg 99.79 kg Constitutional Constitutional: no acute distress and obese *Routine HEENT Exam Head: Present normocephalic Eye: Present EOMI and PERRL ENT: Present mucous membranes moist *Routine Neck Exam Neck: Present supple; Absent lymphadenopathy *Routine Respiratory Exam Respiratory: Present CTA bilaterally *Routine Cardiovascular Exam Cardiovascular: Present RRR *Routine Abdominal Exam Abdominal: Present soft and normoactive bowel sounds; Absent tenderness *Routine Rectal Exam Patient deferred: visual exam *Routine Exam Patient deferred: external exam Comments: Bruising on right groin; Mild tenderness no thrill. No active bleeding from fem oral insertion site *Routine Extremities Exam Extremities: Absent cyanosis, clubbing or edema *Routine Skin Exam Skin: Present warm; Absent rash *Routine Neurological Exam Neurological: Present alert and oriented X3; Absent altered mental status Results Data Completed and Pending Labs on day of discharge: Labs from last 24 hours 01/04/24 01/03/24 06:40 12:51 WBC 6.5 RBC 3.42 L Hgb 11.5 L Hct 34.8 L MCV 101.8 H MCH 33.7 H MCHC 33.2 RDW 13.8 Plt Count 263 MPV 7.5 Neut % (Auto) 66.2 Lymph % (Auto) 22.7 [place] % (Auto) 8.2 Eos % (Auto) 2.5 Baso % (Auto) 0.4 Neut # (Auto) 4.3 Lymph # (Auto) 1.5 [place] # (Auto) 0.5 Eos # (Auto) 0.2 Baso # (Auto) 0.0 Activated Clotting Time 287 H* Sodium 134 L Potassium 3.8 Chloride 103 Carbon Dioxide 24 Anion Gap 10.8 BUN 19 H Creatinine 1.20 H Estimated Creat Clear 58 Estimated GFR 43 L Est GFR ( Amer) 52 L Glucose 110 H Calcium 9.2 Total Bilirubin 0.3 AST 28 ALT 22 Alkaline Phosphatase 62 Total Protein 6.1 L Albumin 3.7 Globulin 2.4 Albumin/Globulin Ratio 1.5 DS: Diagnosis Discharge Diagnosis (1) Back pain: Status: Acute Code(s): M54.9 - Dorsalgia, unspecified Qualifiers: Back pain location: low back pain Chronicity: acute Meds Home Medications and Allergies Home Medications Medication Instructions Recorded Confirmed Type aspirin 81 mg tablet,delayed 81 mg PO DAILY 11/12/22 01/03/24 History release clopidogrel 75 mg tablet 75 mg PO DAILY 11/12/22 01/03/24 History diltiazem HCl 240 mg 240 mg PO DAILY 11/12/22 01/03/24 History capsule,extended release 24 hr doxazosin 2 mg tablet 2 mg PO BID 11/12/22 01/03/24 History carvedilol 25 mg tablet 25 mg PO BID BP 01/17/23 01/03/24 History isosorbide mononitrate 60 mg 120 mg PO DAILY 01/17/23 01/03/24 History tablet,extended release 24 hr esomeprazole magnesium 20 mg 20 mg PO DAILY 05/29/23 01/03/24 History capsule,delayed release (Nexium) inclisiran 284 mg/1.5 mL 284 mg (1.5 mL) SQ [id number] #1.5 mL 10/02/23 01/03/24 Rx subcutaneous syringe (Leqvio) tizanidine 4 mg tablet 4 mg PO HSP PRN Pain 01/02/24 01/03/24 History ropinirole 2 mg tablet 2 mg PO HS 01/03/24 01/03/24 History New Prescriptions to Start Prescriptions: Allergies Allergy/AdvReac Type Severity Reaction Status Date / Time JOSE Inhibitors Allergy Unknown Verified 01/03/24 16:10 allergy reaction ARB-Angiotensin Receptor Allergy Unknown Verified 01/03/24 16:10 Antagonist allergy reaction doxycycline Allergy Unknown Verified 01/03/24 16:10 allergy reaction Fish Containing Products Allergy Unknown Verified 01/03/24 16:10 allergy reaction nitrofurantoin Allergy Unknown Verified 01/03/24 16:10 [From Macrodantin] allergy reaction Penicillins Allergy Unknown Verified 01/03/24 16:10 allergy reaction shellfish derived Allergy Unknown Verified 01/03/24 16:10 allergy reaction Dingtuv-OKP-EiD Reductase Allergy Unknown Verified 01/03/24 16:10 Inhibitor allergy [Ynwwjfe-Jio-Mne Reductase reaction Inhibitor] Sulfa (Sulfonamide Allergy Unknown Verified 01/03/24 16:10 Antibiotics) allergy reaction Discharge Plan Disposition Patient Disposition: Home, Self-Care Condition: Fair Follow up Plan Follow up with: Santi Mehta MD [Staff Physician] - 01/14/24 11:30 am Prescriptions/Medication Reconciliation: Continued Leqvio 284 mg/1.5 mL syringe 284 mg SQ [id number] Qty: 1.5 3RF Rx Instructions: First injection now, then repeat in 3 months, then inject every 6 months thereafter. tizanidine 4 mg tablet 4 mg PO HSP PRN (Reason: Pain) esomeprazole magnesium [Nexium] 20 mg capsule,delayed release(DR/EC) 20 mg PO DAILY aspirin 81 mg Tablet,Delayed Release (Dr/Ec) 81 mg PO DAILY diltiazem HCl 240 mg capsule,extended release 24hr 240 mg PO DAILY clopidogrel 75 mg tablet 75 mg PO DAILY doxazosin 2 mg tablet 2 mg PO BID carvedilol 25 mg tablet 25 mg PO BID isosorbide mononitrate 60 mg tablet extended release 24 hr 120 mg PO DAILY ropinirole 2 mg tablet 2 mg PO HS Other Ambulatory Orders: Basic Metabolic Panel (Routine) Timeframe: 20240114 Facility: [facility] - Location: Laboratory Ordered By: Santi Mehta Complete Blood Count Auto Diff (Routine) Timeframe: 20240114 Facility: [facility] - Location: Laboratory Ordered By: Santi Mehta Problem Reconciliation Problems Reviewed?: Yes Patient Discharge Instructions ACTIVITY: Continue current activity DIET: continue same diet Patient Instructions: DI for Peripheral Vascular (Arterial) Disease, DI for Surgical Site Infection, DI for Moderate Sedation, DI for Post-Surgical Bleeding Providers Primary Care Provider: Yoli Hutchins Admit Provider: Serafin Smith Attending Provider: Serafin Smith
--- NOTE | 2024-01-06 15:38 | CARE MANAGER ---
Contacted patient related to hospital discharge. She states she doesn't have much of appetite. She states that she spoke with Dr. Mehta this morning. She denies any other questions or concerns at this time. SUSY Demarco
== END 2024-01-04 11:15 | disposition home or self-care (01) ==
LOC: 2ND 13:51
PROVIDERS: Internal Medicine; Admitting Provider Internal Medicine Adolescent Medicine; PCP Nurse Practitioner; Visit Provider Internal Medicine Adolescent Medicine
DX: I70.223 Atherosclerosis of native arteries of extremities with rest pain, bilateral legs (principal); I25.110 Atherosclerotic heart disease of native coronary artery with unstable angina pectoris; I12.9 Hypertensive chronic kidney disease with stage 1 through stage 4 chronic kidney disease, or unspecified chronic kidney disease; I65.23 Occlusion and stenosis of bilateral carotid arteries; N18.30 Chronic kidney disease, stage 3 unspecified; E66.9 Obesity, unspecified; M54.9 Dorsalgia, unspecified; I77.1 Stricture of artery; Z79.899 Other long term (current) drug therapy; Z68.37 Body mass index [BMI] 37.0-37.9, adult
CPT/HCPCS: 36415; 37221; 80048; 80053; 85025; 85347; 99152; 99153; C1725; C1766; C1769; C1876; C1894; C2623; C9765; G0378; J1644; J2250; J2405; J2550; J2720; J3010; Q9966

== ENCOUNTER 2024-01-05 16:49 | Emergency (ER) | payer MEDICARE, SELFPAY ==
--- NOTE | 2024-01-05 16:57 | ECG_ITS ---
APPROVED REPORT Exam: Resting ECG HR:48 bpm ECG Measurements Heart Rate 48 AXES NC 181 P 67 QRSd 101 QRS 66 QT 444 T 74 QTc 411 Conclusion SINUS BRADYCARDIA POSSIBLE RIGHT VENTRICULAR CONDUCTION DELAY [RSR (QR) IN V1/V2] POSSIBLE LATERAL MYOCARDIAL INFARCTION , OF INDETERMINATE AGE [30 ms Q WAVE IN I/aVL/V5/V6] POSSIBLE INFERIOR MYOCARDIAL INFARCTION , PROBABLY OLD [30 ms Q WAVE IN II/aVF] ABNORMAL ECG Electronically signed by : IRA MALHOTRA, 01/05/2024 21:42:18
[2024-01-05 16:59] VITALS: BP 164/48; PULSE 97; RESP 20; TEMP 36.9; O2SAT 98; BMI 37.8
--- NOTE | 2024-01-05 17:01 | XR_ITS ---
PROCEDURE INFORMATION: Exam: XR Chest Exam date and time: 01/05/2024 5:16 PM Age: 83 years old Clinical indication: Shortness of breath; Additional info: SOA TECHNIQUE: Imaging protocol: Radiologic exam of the chest. Views: 2 views. COMPARISON: CR XR CHEST PORTABLE 09/04/2023 9:08 AM FINDINGS: Lungs: There has been interval development of moderate patchy parenchymal opacity in the right lung base. Right mid to upper lung and left lung appear largely clear. Pleural spaces: Unremarkable. No pleural effusion. No pneumothorax. Heart/Mediastinum: Unremarkable. No cardiomegaly. Bones/joints: Sternotomy wires remain in place. IMPRESSION: Moderate right basilar infiltrate
--- NOTE | 2024-01-05 17:08 | ED_ITS ---
Discharge Plan Disposition Patient Disposition: Home, Self-Care Condition: Good Prescriptions Prescriptions: New furosemide [Lasix] 40 mg tablet 40 mg PO DAILY Qty: 7 0RF No Action Leqvio 284 mg/1.5 mL syringe 284 mg SQ [id number] Qty: 1.5 3RF Rx Instructions: First injection now, then repeat in 3 months, then inject every 6 months thereafter. tizanidine 4 mg tablet 4 mg PO HSP PRN (Reason: Pain) esomeprazole magnesium [Nexium] 20 mg capsule,delayed release(DR/EC) 20 mg PO DAILY aspirin 81 mg Tablet,Delayed Release (Dr/Ec) 81 mg PO DAILY diltiazem HCl 240 mg capsule,extended release 24hr 240 mg PO DAILY clopidogrel 75 mg tablet 75 mg PO DAILY doxazosin 2 mg tablet 2 mg PO BID carvedilol 25 mg tablet 25 mg PO BID isosorbide mononitrate 60 mg tablet extended release 24 hr 120 mg PO DAILY ropinirole 2 mg tablet 2 mg PO HS Referrals Follow up/Referrals: Yoli Hutchins APRN [Primary Care Provider] - See instructions Activity Restrictions/Add. Instructions Additional Instructions/Restrictions: You were evaluated in the emergency department today. At this time, it looks like you may have some fluid buildup, which could be causing your shortness of breath. For this, I am prescribing you a week of Lasix, which is a fluid pill or diuretic. This will make you pee more often. Please follow-up closely with your primary care provider for recheck of your labs and monitoring of your kidney function. Call your emergency operator in the morning and let them know that you were seen here in the emergency department. They may also determine whether or not they would like to keep you on this medication. Return to the emergency department for any new or worsening symptoms. Clinical Impressions Clinical Impression: Volume overload, Shortness of breath Instructions Patient Instructions: DI for Heart Failure, DI for Shortness of Breath, Furosemide Discharge ED Provider: Kitty Harvey [facility] General Chief Complaint: Shortness of Breath/Dyspnea Stated Complaint: Difficulty breathing Time Seen by Provider: 01/05/24 16:56 Mode of Arrival: Ambulatory Source of Information: Patient Limitations: No Limitations Description of Symptoms (Recalled from ER Triage Doc. by RN): pt to ed c/o increased SOA and chest pressure. pt states she was d/c yesterday following stent placement History of Present Illness HPI narrative: This patient is an 83-year-old female with a history of CAD status post CABG, peripheral vascular disease with stenting 2 days ago with cardiology, hypertension, hyperlipidemia, CKD, diastolic dysfunction, obesity, and prior history of pneumonia presenting to the emergency department for evaluation with concern for shortness of breath. Patient states that she was discharged yesterday following stent placement, and about 6 hours ago she started having shortness of breath. Nothing seems to make it better or worse. It does not change with exertion or with lying flat. She also notes that she has occasional cough. She is not coughing anything up. No fevers, abdominal pain, vomiting, leg swelling or pain, or other concerns noted. No history of prior smoking or COPD. Related Data Home Medications Medication Instructions Recorded Confirmed aspirin 81 mg tablet,delayed 81 mg PO DAILY 11/12/22 01/03/24 release clopidogrel 75 mg tablet 75 mg PO DAILY 11/12/22 01/03/24 diltiazem HCl 240 mg 240 mg PO DAILY 11/12/22 01/03/24 capsule,extended release 24 hr doxazosin 2 mg tablet 2 mg PO BID 11/12/22 01/03/24 carvedilol 25 mg tablet 25 mg PO BID BP 01/17/23 01/03/24 isosorbide mononitrate 60 mg 120 mg PO DAILY 01/17/23 01/03/24 tablet,extended release 24 hr esomeprazole magnesium 20 mg 20 mg PO DAILY 05/29/23 01/03/24 capsule,delayed release (Nexium) tizanidine 4 mg tablet 4 mg PO HSP PRN Pain 01/02/24 01/03/24 ropinirole 2 mg tablet 2 mg PO HS 01/03/24 01/03/24 Previous Rx's Medication Instructions Recorded inclisiran 284 mg/1.5 mL 284 mg (1.5 mL) SQ [id number] #1.5 mL 10/02/23 subcutaneous syringe (Leqvio) furosemide 40 mg tablet (Lasix) 40 mg PO DAILY #7 tabs 01/05/24 Allergies Allergy/AdvReac Type Severity Reaction Status Date / Time JOSE Inhibitors Allergy Unknown Verified 01/03/24 16:10 allergy reaction ARB-Angiotensin Receptor Allergy Unknown Verified 01/03/24 16:10 Antagonist allergy reaction doxycycline Allergy Unknown Verified 01/03/24 16:10 allergy reaction Fish Containing Products Allergy Unknown Verified 01/03/24 16:10 allergy reaction nitrofurantoin Allergy Unknown Verified 01/03/24 16:10 [From Macrodantin] allergy reaction Penicillins Allergy Unknown Verified 01/03/24 16:10 allergy reaction shellfish derived Allergy Unknown Verified 01/03/24 16:10 allergy reaction Rgphofc-QXA-DnE Reductase Allergy Unknown Verified 01/03/24 16:10 Inhibitor allergy [Ixihfgr-Gqb-Lfz Reductase reaction Inhibitor] Sulfa (Sulfonamide Allergy Unknown Verified 01/03/24 16:10 Antibiotics) allergy reaction PFSH PFSH Disclaimer: The information contained in this section may have been updated after the patient was seen, as this information can be updated by other users. Medical History Anemia Abnormal ankle brachial index (ROSANNA) Claudication Low back pain Bilateral leg pain RLS (restless legs syndrome) Papilloma of tonsil Tonsillitis Malignant hypertension Hypertension Diastolic dysfunction Anxiety Unstable angina PAD (peripheral artery disease) HLD (hyperlipidemia) CAD (coronary artery disease) Carotid artery stenosis Bradycardia Hypertensive heart disease Surgical History Hx of heart artery stent H/O: hysterectomy Hx of CABG Status post coronary artery stent placement Family History Other Family history of hyperlipidemia Family history of hypertension Family history of myocardial infarction Social History Smoking Status: Never smoker alcohol intake: never substance use type: denies use current occupational status: employed Travel in the last 8 weeks: Inside the [place] household members: none housing: house 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 caffeine: Yes ROS Obtained: Yes All systems reviewed & no additional complaints except as documented Physical Exam General General appearance: alert, in no apparent distress and obese Head Head exam: atraumatic and normocephalic Eye Eye exam: Present normal appearance, PERRL and EOMI ENT ENT exam: Present normal exam, normal oropharynx, mucous membranes moist and normal external ear exam Neck Neck exam: Present normal inspection, full ROM and trachea midline; Absent tenderness Chest Chest inspection: Present normal inspection and symmetric chest wall rise; Absent tenderness Respiratory Respiratory exam: Present normal lung sounds bilaterally; Absent respiratory distress, wheezes, stridor or accessory muscle use Cardiovascular Cardiovascular exam: Present regular rate and normal rhythm Abdominal Exam Abdominal exam: Present soft; Absent distention, tenderness or guarding Extremities Exam Extremities exam: Present normal inspection, full ROM and normal capillary refill; Absent tenderness or edema Back Exam Back exam: Present normal inspection and full ROM; Absent tenderness Neurological Exam Neurological exam: Present alert, oriented X3, CN II-XII intact and normal gait; Absent motor sensory deficit Psychiatric Psychiatric exam: Present normal affect and normal mood Skin Skin exam: Present warm and dry HEART Score HEART Score HEART Score assessment performed?: Yes History (anamnesis): Slightly suspicious ECG: Normal Age: >65 years Risk factors: Atherosclerosis history Troponin: </= normal limit HEART Score: 4 Critical Care Critical Care Time Critical Care Time: No Medical Decision Making Medical Records Medical records reviewed: Yes I reviewed the patient's medical records. Randal Inquiry Pt receiving controlled substance: No Vital Signs Vital Signs: 01/05/24 16:59 01/05/24 17:45 01/05/24 19:20 Temperature 98.5 F 98.5 F Temperature Source Oral Pulse Rate 55 L 53 L Pulse Rate [Left Radial] 97 H Respiratory Rate 20 16 16 Blood Pressure 154/87 H 171/66 H Blood Pressure [Right Arm] 164/48 H Blood Pressure Mean [Right Arm] 86 Blood Pressure Source Automatic Cuff Blood Pressure Position Sitting 02 Sat by Pulse Oximetry 98 97 Oxygen Delivery Method Room Air Room Air Room Air Lab Data Labs: Lab Results 01/05/24 17:09: WBC 7.2, RBC 3.29 L, Hgb 10.5 L, Hct 32.6 L, MCV 99.3 H, MCH 31.9 H, MCHC 32.2, RDW 13.4, Plt Count 245, MPV 8.3, Neut % (Auto) 58.2, Lymph % (Auto) 29.7, [place] % (Auto) 8.0, Eos % (Auto) 3.5, Baso % (Auto) 0.6, Neut # (Auto) 4.2, Lymph # (Auto) 2.2, [place] # (Auto) 0.6, Eos # (Auto) 0.3, Baso # (Auto) 0.0, PT 11.4, INR 1.06, APTT 31.9 H, D-Dimer 0.45, Sodium 130 L, P otassium 4.9 D, Chloride 97 L, Carbon Dioxide 26, Anion Gap 11.9, BUN 19 H, C reatinine 1.30 H, Estimated Creat Clear 53, Estimated GFR 39 L, Est GFR ( Amer) 48 L, Glucose 110 H, Calcium 9.0, Total Bilirubin 0.6, AST 29, ALT 22, Alkaline Phosphatase 55, Troponin I < 0.01, NT-Pro-B Natriuret Pep 2490 H, Total Protein 6.2 L, Albumin 3.7, Globulin 2.5, Albumin/Globulin Ratio 1.5 01/05/24 17:11: VBG pH 7.39, VBG pCO2 36.6, VBG pO2 37.9, VBG HCO3 21.7 L, VBG Total CO2 22.8 L, VBG O2 Saturation 73.4 H, VBG Base Excess -3.3 L, VBG Lactic Acid 1.5 01/05/24 17:44: SARS-CoV-2 (PCR) Not detected, Influenza A Untype (PCR) Not detected, Influenza Type B (PCR) Not detected 01/05/24 17:09 01/05/24 17:09 Response Orders (Tests/Meds): ORDERS Category Date Time Status CXR 2 view (NOT portable) [XR chest 2V] Stat Exams 01/05/24 17:01 Completed Activated Partial Thrombo Time Stat Lab 01/05/24 17:09 Completed BNP [NT Pro Brain Natriuretic Pep.] Stat Lab 01/05/24 17:09 Completed Complete Blood Count Auto Diff Stat Lab 01/05/24 17:09 Completed Comprehensive Metabolic Panel Stat Lab 01/05/24 17:09 Completed D-Dimer Stat Lab 01/05/24 17:09 Completed Prothrombin Time INR Stat Lab 01/05/24 17:09 Completed Rapid PCR Covid and Flu A/B Stat Lab 01/05/24 17:44 Completed Trop I [Troponin I] Stat Lab 01/05/24 17:09 Completed VBG [Venous Blood Gas] Stat RT 01/05/24 17:11 Completed ECG Data Tracing #1: Attestation: I reviewed this ECG and interpreted as documented below: ECG Narrative: Sinus bradycardia with a ventricular rate of [address] changes concerning for ischemia. Normal axis and intervals. No significant changes noted from prior EKG. ECG initial impression date: 01/05/24 ECG initial impression time: 16:58 MDM Narrative Medical Decision Narrative: In summary, this patient is a 83-year-old female presenting to the Emergency Department for evaluation of shortness of breath, cough, and chest pressure after leg stenting 2 days ago. Differential diagnoses considered include but are not limited to pneumonia, viral syndrome, respiratory failure, PE, ACS, dysrhythmia, CHF exacerbation. Ruling out the most morbid conditions drove assessment. It should be noted patient's history includes extensive cardiovascular history as well as CKD which may or may not be at goal therapy. This complicates all aspects of care by increasing patient's risk for morbidity. I reviewed patient's past medical records and noted stenting 2 days ago to her right lower extremity as per HPI. On exam, the patient is sitting upright in a chair in no acute distress. Vitals are reassuring on cardiac telemetry with sinus bradycardia, but that has been noted on prior evaluations as well. Cardiopulmonary dam is reassuring. Workup included CBC, CMP, troponin, BNP, D-dimer, chest x-ray, viral swab, EKG. EKG obtained is reassuring. I independently interpreted x-ray prior to the radiologist read and noted concerns for right pleural effusion as well as mild pulmonary edema. Please see their read for final interpretation. Labs were obtained that demonstrated BNP that is twice the level as her previous BNP. She also has apparent dilution of her labs from discharge concerning for volume overload. Creatinine is around her baseline at 1.3.. On reassessment, patient is resting comfortably with no increased work of breathing. Vitals are normal on cardiac telemetry, including oxygen saturation. She is able to ambulate without difficulty. I feel that she likely has volume overload as a cause of her symptoms in the setting of recent admission at which point IV contrast and IV fluids were administered. After shared decision-making with the patient, patient would like to go home. I feel this is reasonable given that she is in no acute distress and vitals are reassuring. I advised that we could treat her with a short course of Lasix to see if this improves her volume overload and symptoms. Advised that she follow-up very closely with cardiology as well as her primary care provider for monitoring of her kidney function in the setting of CKD and so that they can determine whether or not they would like to keep her on this medication long-term. She expressed understanding and agreement. Patient was discharged in stable condition with a prescription for Lasix to take for 7 days as well as instructions for very close follow-up as an outpatient. Strict return precautions were given prior to discharge.
[2024-01-05 17:20] LABS: Lactate Venous 1.5 mmol/L (0.4-2.0); VBG Base Excess -3.3 mmol/L (-2.4-2.3); VBG HCO3 21.7 mmol/L (23-30); VBG Oxygen Saturation 73.4 % (50-70); VBG PCO2 36.6 mmol/L (35-51); VBG PH 7.39 mmol/L (7.31-7.41); VBG PO2 37.9 mmol/L (28-40); VBG Total CO2 22.8 mmol/L (23-27)
[2024-01-05 17:20] LABS: Basophils % 0.6 % (0.1-2.0); Eosinophils # 0.3 K/mm3 (0.0-0.4); Eosinophils % 3.5 % (0.1-12.0); Hematocrit 32.6 % (37.0-47.0); Hemoglobin 10.5 g/dL (12.2-16.2); Lymphocytes # 2.2 K/mm3 (0.7-4.5); Lymphocytes % 29.7 % (10-50); Mean Corpuscular HGB Conc 32.2 g/dL (31.8-35.4); Mean Corpuscular Hemoglobin 31.9 pg (27.0-31.2); Mean Corpuscular Volume 99.3 fl (81-99); Mean Platelet Volume 8.3 fl (7.4-10.4); Monocytes # 0.6 K/mm3 (0.1-1.0); Neutrophils # 4.2 K/mm3 (1.8-7.8); Neutrophils % 58.2 % (37.0-80.0); Platelet Count 245 K/mm3 (142-424); Red Blood Count 3.29 M/mm3 (4.20-5.40); Red Cell Distribution Width 13.4 % (11.5-17.5); White Blood Count 7.2 K/mm3 (4.8-10.8)
[2024-01-05 17:25] LABS: Chloride 97 mmol/L (98-107); Potassium 4.9 mmoL/L (3.5-5.1); Sodium 130 mmol/L (136-145)
[2024-01-05 17:28] LABS: Alanine Aminotransferase 22 U/L (12-78); Albumin Level 3.7 g/dl (3.5-5.0); Albumin/Globulin Ratio 1.5 (1.1-1.8); Alkaline Phosphatase 55 U/L (38-126); Aspartate Amino Transferase 29 U/L (14-36); Bilirubin,Total 0.6 mg/dl (0.2-1.3); Blood Urea Nitrogen 19 mg/dl (7-17); Carbon Dioxide 26 mmol/L (22.0-30.0); Creatinine Clearance Estimated 53 mL/min (50-200); Estimated Glomerular Filt Rate 39 ml/min (>60); GFR (African American) 48 ML/MIN (>60); Globulin 2.5 g/dL (1.3-3.2); Total Protein,Serum 6.2 g/dl (6.3-8.2)
[2024-01-05 17:29] LABS: Glucose 110 mg/dl (74-100)
[2024-01-05 17:33] LABS: D-Dimer 0.45 ug/mL (0.0-0.5)
[2024-01-05 17:38] LABS: NT Pro Brain Natriuretic Pep. 2490 pg/mL (0-450)
[2024-01-05 17:42] LABS: Troponin I < 0.01 ng/ml (0.00-0.034)
[2024-01-05 17:45] VITALS: BP 154/87; PULSE 55; RESP 16; O2SAT 97
[2024-01-05 17:45] LABS: Activated Partial Thrombo Time 31.9 seconds (22.8-30.6); INR 1.06 (0.9-1.1); Prothrombin Time 11.4 seconds (10.1-12.5)
[2024-01-05 17:47] LABS: Coronavirus 19, PCR Not Detected (NotDetected); Influenza A, PCR Not Detected (NotDetected); Influenza B, PCR Not Detected (NotDetected)
[2024-01-05 18:08] LABS: Anion Gap 11.9 mEq/L (5-15)
[2024-01-05 19:20] VITALS: BP 171/66; PULSE 53; RESP 16; TEMP 36.9; O2SAT 98
== END 2024-01-05 19:21 | disposition home or self-care (01) ==
PROVIDERS: Emergency Provider Emergency Medicine; PCP Nurse Practitioner
DX: R06.02 Shortness of breath (principal); E87.70 Fluid overload, unspecified; E87.1 Hypo-osmolality and hyponatremia; I73.9 Peripheral vascular disease, unspecified; N18.9 Chronic kidney disease, unspecified; E78.5 Hyperlipidemia, unspecified; I65.29 Occlusion and stenosis of unspecified carotid artery; I12.9 Hypertensive chronic kidney disease with stage 1 through stage 4 chronic kidney disease, or unspecified chronic kidney disease; I25.119 Atherosclerotic heart disease of native coronary artery with unspecified angina pectoris; Z95.5 Presence of coronary angioplasty implant and graft
CPT/HCPCS: 71046; 80053; 82803; 83880; 84484; 85025; 85378; 85610; 85730; 87636; 93005; 99284

== ENCOUNTER 2024-01-15 10:12 | Outpatient (CLI) | payer MEDICARE, SELFPAY ==
[2024-01-15 10:33] LABS: Basophils % 0.6 % (0.1-2.0); Eosinophils # 0.2 K/mm3 (0.0-0.4); Eosinophils % 3.5 % (0.1-12.0); Hematocrit 33.2 % (37.0-47.0); Hemoglobin 11.7 g/dL (12.2-16.2); Lymphocytes # 2.2 K/mm3 (0.7-4.5); Lymphocytes % 34.2 % (10-50); Mean Corpuscular HGB Conc 35.3 g/dL (31.8-35.4); Mean Corpuscular Hemoglobin 35.9 pg (27.0-31.2); Mean Corpuscular Volume 101.6 fl (81-99); Mean Platelet Volume 8.5 fl (7.4-10.4); Monocytes # 0.4 K/mm3 (0.1-1.0); Monocytes % 5.7 % (1.7-9.3); Neutrophils # 3.6 K/mm3 (1.8-7.8); Neutrophils % 55.9 % (37.0-80.0); Platelet Count 352 K/mm3 (142-424); Red Blood Count 3.27 M/mm3 (4.20-5.40); Red Cell Distribution Width 13.8 % (11.5-17.5); White Blood Count 6.3 K/mm3 (4.8-10.8)
[2024-01-15 11:00] LABS: Chloride 103 mmol/L (98-107); Potassium 4.5 mmoL/L (3.5-5.1); Sodium 136 mmol/L (136-145)
[2024-01-15 11:03] LABS: Blood Urea Nitrogen 25 mg/dl (7-17); Estimated Glomerular Filt Rate 43 ml/min (>60); GFR (African American) 52 ML/MIN (>60)
[2024-01-15 11:04] LABS: Anion Gap 10.5 mEq/L (5-15); Calcium 9.5 mg/dl (8.4-10.2); Carbon Dioxide 27 mmol/L (22.0-30.0); Glucose 125 mg/dl (74-100)
== END 2024-01-15 23:59 | disposition home or self-care (01) ==
PROVIDERS: PCP Nurse Practitioner; Visit Provider Internal Medicine
DX: I73.9 Peripheral vascular disease, unspecified (principal); I10 Essential (primary) hypertension
CPT/HCPCS: 36415; 80048; 85025

== ENCOUNTER 2024-02-05 10:26 | Outpatient (CLI) | payer MEDICARE, SELFPAY ==
[2024-02-05 12:37] VITALS: BP 148/65; PULSE 58; RESP 18; TEMP 36.6; O2SAT 97
[2024-02-05 14:38] LABS: Chol/HDL Ratio 4.4 (1-3.5); Cholesterol 164 mg/dl (140-200); HDL Cholesterol 37 mg/dl (40-60); Triglycerides 231 mg/dl (30-150); VLDL Cholesterol 46 mg/dL (0-40)
[2024-02-05 14:48] LABS: Direct LDL Cholesterol 67.52 mg/dL (100-129)
== END 2024-02-05 13:00 | disposition home or self-care (01) ==
PROVIDERS: Visit Provider Internal Medicine
DX: E78.2 Mixed hyperlipidemia (principal)
CPT/HCPCS: 36415; 80061; 96372; J1306

== ENCOUNTER 2024-05-08 10:11 | Outpatient (CLI) | payer MEDICARE, SELFPAY ==
[2024-05-08 10:50] LABS: Basophils % 0.6 % (0.1-2.0); Eosinophils # 0.3 K/mm3 (0.0-0.4); Eosinophils % 4.3 % (0.1-12.0); Hematocrit 38.3 % (37.0-47.0); Hemoglobin 13.1 g/dL (12.2-16.2); Lymphocytes # 2.3 K/mm3 (0.7-4.5); Mean Corpuscular HGB Conc 34.1 g/dL (31.8-35.4); Mean Corpuscular Volume 93.8 fl (81-99); Mean Platelet Volume 7.3 fl (7.4-10.4); Monocytes # 0.5 K/mm3 (0.1-1.0); Monocytes % 7.1 % (1.7-9.3); Neutrophils # 3.5 K/mm3 (1.8-7.8); Neutrophils % 53.1 % (37.0-80.0); Platelet Count 304 K/mm3 (142-424); Red Blood Count 4.08 M/mm3 (4.20-5.40); Red Cell Distribution Width 14.6 % (11.5-17.5); White Blood Count 6.5 K/mm3 (4.8-10.8)
[2024-05-08 11:34] LABS: Chol/HDL Ratio 3.8 (1-3.5); Cholesterol 133 mg/dl (140-200); HDL Cholesterol 35 mg/dl (40-60); Triglycerides 243 mg/dl (30-150); VLDL Cholesterol 49 mg/dL (0-40)
[2024-05-08 11:45] LABS: Direct LDL Cholesterol 56.11 mg/dL (100-129)
== END 2024-05-08 23:59 | disposition home or self-care (01) ==
LOC: LAB 10:12
PROVIDERS: PCP Nurse Practitioner; Visit Provider Internal Medicine
DX: D64.9 Anemia, unspecified (principal); E78.5 Hyperlipidemia, unspecified
CPT/HCPCS: 36415; 80061; 85025